=== PATIENT | female | born 1945 | race Asian ===

== ENCOUNTER 2020-05-27 19:51 | Inpatient (IN) | payer OTHER ==
[2020-05-27] MEDS ORDERED: DEXAMETHASONE SOD PHOSPHATE 20 MG/5 ML VIAL IVPB STA (21:37)
[2020-05-27 21:38] LABS: VENOUS PCO2 41.7 mmHg (38-52); VENOUS PH 7.334 (7.310-7.410)
[2020-05-27 21:40] LABS: BASO % 0.2 % (0-2.0); HEMATOCRIT 35.4 % (32.4-45.2); HEMOGLOBIN 11.8 GM/dL (10.7-15.3); LYMPH % 13.5 % (8-40); MCH 26.6 pg (25.7-33.7); MCHC 33.5 g/dl (32.0-36.0); MEAN CELL VOLUME 79.4 fl (80-96); MEAN PLT VOLUME 9.2 fl (7.5-11.1); MONO % 3.5 % (3.8-10.2); NEUT % 82.8 % (42.8-82.8); PLATELET COUNT 115 K/MM3 (134-434); RBC 4.46 M/mm3 (3.60-5.2); RDW 13.6 % (11.6-15.6); WHITE BLOOD COUNT 8.6 K/mm3 (4.0-10.0)
[2020-05-27] MEDS ORDERED: DEXAMETHASONE SOD PHOSPHATE 10 MG/1 ML VIAL ONE (21:41)
[2020-05-27 22:01] LABS: CHLORIDE 94 mmol/L (98-107); POTASSIUM 3.4 mmol/L (3.5-5.1); SODIUM 127 mmol/L (136-145)
[2020-05-27 22:04] LABS: CALCIUM 7.7 mg/dL (8.5-10.1)
[2020-05-27 22:05] LABS: ALBUMIN 3.1 g/dl (3.4-5.0); ANION GAP 11 MMOL/L (8-16); BLOOD UREA NITROGEN 14.4 mg/dL (7-18); CO2 22 mmol/L (21-32); GLUCOSE,RANDOM 138 mg/dL (74-106)
[2020-05-27 22:07] LABS: CREATININE 0.8 mg/dL (0.55-1.3)
[2020-05-27 22:08] LABS: SGOT/AST 79 U/L (15-37); SGPT/ALT 85 U/L (13-61)
[2020-05-27 22:09] LABS: BILIRUBIN,TOTAL 0.5 mg/dL (0.2-1); LDH 544 U/L (84-246); TOT PROT 7.2 g/dl (6.4-8.2)
[2020-05-27 22:10] LABS: ALK PHOS 85 U/L (45-117)
[2020-05-27] MEDS ORDERED: SODIUM CHLORIDE 1,000 ML IV SCH (23:45)
[2020-05-27] MEDS ORDERED: KCL 10 MEQ IVPB 10 MEQ/100 ML INFUS.BAG IVPB ONE (23:48)
[2020-05-27] MEDS ORDERED: ASCORBIC ACID 500 MG TABLET (FP) ONE (23:48)
[2020-05-27] MEDS: ASCORBIC ACID 500 MG TABLET (FP) PO SCH (23:59)
[2020-05-28] MEDS: KCL 10 MEQ IVPB 10 MEQ/100 ML INFUS.BAG IVPB SCH ×2 (00:17→02:38)
[2020-05-28] MEDS ORDERED: AZITHROMYCIN IVPB 500 MG/250 ML BAG IVPB ONE ×2 (00:45→02:09)
[2020-05-28] MEDS ORDERED: ENOXAPARIN NA (PORCINE) 40 MG/0.4 ML DISP.SYRIN SQ ONE (01:18)
[2020-05-28] MEDS ORDERED: cefTRIAXone SODIUM 1 GM VIAL ONE ×2 (02:08→09:10)
[2020-05-28] MEDS ORDERED: KCL 10 MEQ IVPB 10 MEQ/100 ML INFUS.BAG IVPB ONE (02:09)
[2020-05-28] MEDS ORDERED: FAMOTIDINE 20 MG/50 ML IVPB 20 MG/50 ML MG IVPB ONE (02:09)
[2020-05-28] MEDS: FAMOTIDINE 20 MG/50 ML IVPB 20 MG/50 ML MG IVPB SCH ×3 (02:37→21:44)
[2020-05-28] MEDS ORDERED: LORazepam 2 MG/ML SDV VIAL IVPUSH ONE (04:35)
[2020-05-28 05:54] LABS: ARTERIAL BLD GAS O2 SATURATION 76.1 mmHg (95-98); ARTERIAL BLOOD GAS BASE EXCESS -7.6 mmol/L (-2-2); ARTERIAL BLOOD GAS PO2 47.6 mmHg (80-100); ARTERIAL BLOOD GAS pH 7.239 (7.350-7.450)
[2020-05-28 05:55] LABS: ALLENS TEST POSITIVE
[2020-05-28 05:56] LABS: VENT MODE S/T; VENT RATE 30
[2020-05-28] MEDS ORDERED: RAPID SEQUENCE INTUBATION KIT NR ONE (06:01)
[2020-05-28] MEDS ORDERED: PROPOFOL 1,000,000 MCG/100 ML VIAL ONE (06:20)
[2020-05-28] MEDS: PROPOFOL 1,000,000 MCG/100 ML VIAL IVPB SCH ×2 (06:40→13:00)
[2020-05-28 07:21] LABS: RDW 13.1 % (11.6-15.6)
[2020-05-28] MEDS ORDERED: FENTANYL NS IVPB 500 MCG/100 ML BAG IVPB ONE (07:26)
[2020-05-28 07:28] LABS: INR 0.93 (0.83-1.09); PROTHROMBIN TIME (PATIENT) 11.5 SEC (9.7-13.0)
[2020-05-28 07:29] LABS: ACTIVATED PTT 29.2 SECONDS (25.2-36.5)
[2020-05-28] MEDS ORDERED: FENTANYL IVPB 500 MCG/100 ML BAG IVPB SCH (07:30)
[2020-05-28 07:42] LABS: POTASSIUM 3.1 mmol/L (3.5-5.1)
[2020-05-28 07:46] LABS: BLOOD UREA NITROGEN 9.1 mg/dL (7-18); MAGNESIUM 1.6 mg/dL (1.8-2.4)
[2020-05-28 07:49] LABS: CREATININE 0.5 mg/dL (0.55-1.3); PHOSPHOROUS 2.1 mg/dL (2.5-4.9)
[2020-05-28 07:51] LABS: BILIRUBIN,TOTAL 0.6 mg/dL (0.2-1)
[2020-05-28] MEDS: MIDAZOLAM 100 MG/100 ML MG IVPB SCH (08:00)
[2020-05-28 08:26] LABS: BASO % 0.2 % (0-2.0); HEMATOCRIT 25.3 % (32.4-45.2); LYMPH % 10.3 % (8-40); MCH 28.2 pg (25.7-33.7); MCHC 35.6 g/dl (32.0-36.0); MEAN CELL VOLUME 79.2 fl (80-96); MEAN PLT VOLUME 9.7 fl (7.5-11.1); MONO % 2.7 % (3.8-10.2); NEUT % 86.8 % (42.8-82.8); PLATELET COUNT 96 K/MM3 (134-434); WHITE BLOOD COUNT 6.5 K/mm3 (4.0-10.0)
[2020-05-28 08:27] LABS: ALBUMIN 2.2 g/dl (3.4-5.0); TOT PROT 5.5 g/dl (6.4-8.2)
[2020-05-28 08:31] LABS: CALCIUM 5.6 mg/dL (8.5-10.1)
[2020-05-28] MEDS ORDERED: MIDAZOLAM 100 MG/100 ML MG IVPB ONE (08:45)
[2020-05-28] MEDS ORDERED: DEXTROSE 5%-WATER - 50 ML IVPB ONE (09:11)
[2020-05-28 09:21] LABS: ARTERIAL BLD GAS O2 SATURATION 93.2 mmHg (95-98); ARTERIAL BLOOD GAS BASE EXCESS -7.6 mmol/L (-2-2); ARTERIAL BLOOD GAS PO2 79.2 mmHg (80-100); ARTERIAL BLOOD GAS pH 7.221 (7.350-7.450)
[2020-05-28 09:23] LABS: ALLENS TEST POSITIVE; VENT MODE A/C; VENT RATE 18
[2020-05-28] MEDS ORDERED: VECURONIUM BROMIDE 50 MG/50 ML VIAL IVPUSH ONE (09:36)
[2020-05-28] MEDS ORDERED: VECURONIUM BROMIDE 10 MG/10 ML VIAL ONE (09:39)
[2020-05-28] MEDS: VECURONIUM BROMIDE 100 MG/100 ML BAG IVPB SCH (09:52)
[2020-05-28] MEDS: DEXAMETHASONE SOD PHOSPHATE 10 MG/1 ML VIAL IVPUSH SCH (10:05)
[2020-05-28] MEDS: ENOXAPARIN NA (PORCINE) 80 MG/0.8 ML DISP.SYRIN SQ SCH ×2 (10:05→21:41)
[2020-05-28] MEDS: MUPIROCIN 2% TOPICAL OINTMENT FOR DECOLONIZATION NS SCH ×2 (10:06→21:43)
[2020-05-28] MEDS: VASOPRESSIN 40 UNITS in SODIUM CHLORIDE 98 ML IVPB SCH ×2 (10:29→17:18)
[2020-05-28] MEDS: ZINC SULFATE 220 MG CAPSULE (FP) PO SCH ×2 (10:29→22:23)
[2020-05-28] MEDS: CEFTRIAXONE 1 GM in DEXTROSE 5%-WATER - 50 ML IVPB SCH (10:30)
[2020-05-28] MEDS: CHOLECALCIFEROL (VIT D3) 1,000 UNIT (25 MCG) TABLET PO SCH (10:30)
[2020-05-28] MEDS: ASCORBIC ACID 500 MG TABLET (FP) PO SCH ×2 (10:30→22:24)
[2020-05-28] MEDS: AZITHROMYCIN IVPB 500 MG/250 ML BAG IVPB SCH (11:17)
[2020-05-28] MEDS ORDERED: MAGNESIUM SULF 50% (8.12 MEQ/2 ML-1 GM VIAL) IVPB ONE (13:00)
[2020-05-28] MEDS ORDERED: POTASSIUM PHOSPHATE 30 MM in SODIUM CHLORIDE 500 ML IVPB ONE (14:00)
[2020-05-28] MEDS ORDERED: PT OWN MED DRAWER 7, Y5N ONE ×2 (14:39→15:31)
[2020-05-28] MEDS ORDERED: REMDESIVIR 200 MG in SODIUM CHLORIDE 210 ML IVPB ONE (15:00)
[2020-05-28] MEDS: NOREPINEPHRINE NS PREMIX 16,000 MCG/500 ML BAG IVPB SCH (15:54)
[2020-05-28 16:19] LABS: ARTERIAL BLOOD GAS PO2 112.9 mmHg (80-100)
[2020-05-28 16:31] LABS: ALLENS TEST POSITIVE
[2020-05-28 16:32] LABS: VENT MODE AC; VENT RATE 18
[2020-05-28 16:35] LABS: ARTERIAL BLOOD GAS pH 7.005 (7.350-7.450)
[2020-05-28 18:18] LABS: POTASSIUM 4.5 mmol/L (3.5-5.1)
[2020-05-28 18:20] LABS: BLOOD UREA NITROGEN 14.6 mg/dL (7-18)
[2020-05-28 18:23] LABS: CREATININE 0.9 mg/dL (0.55-1.3)
[2020-05-28 18:33] LABS: CALCIUM 6.8 mg/dL (8.5-10.1)
[2020-05-28] MEDS ORDERED: SODIUM BICARBONATE 8.4% 50 MEQ/50 ML DISP.SYRIN IVPUSH ONE ×2 (18:42→21:10)
[2020-05-28] MEDS ORDERED: SODIUM BICARBONATE 8.4% 50 MEQ/50 ML VIAL ONE (18:45)
[2020-05-28 19:56] LABS: ARTERIAL BLD GAS O2 SATURATION 99.4 mmHg (95-98); ARTERIAL BLOOD GAS BASE EXCESS -7.6 mmol/L (-2-2); ARTERIAL BLOOD GAS PO2 253.2 mmHg (80-100)
[2020-05-28 20:36] LABS: ARTERIAL BLOOD GAS pH 7.165 (7.350-7.450)
[2020-05-28] MEDS ORDERED: SODIUM BICARBONATE 8.4% - 150 MEQ in DEXTROSE 5%-WATER - 950 ML IVPB SCH (21:00)
[2020-05-28] MEDS ORDERED: CALCIUM GLUCONATE 10% - 1,000 MG/10 ML VIAL IVPUSH ONE (21:11)
[2020-05-28] MEDS ORDERED: SODIUM CHLORIDE 0.45% 1,000 ML IV SCH (21:15)
[2020-05-28] MEDS: INSULIN SLIDING SCALE (NOVOLOG) 1 VIAL SQ SCH (21:38)
[2020-05-28] MEDS: CHLORHEXIDINE GLUCONATE 4% CLEANSER FOR DECOLONIZATION TP SCH (21:44)
[2020-05-29] MEDS ORDERED: SODIUM CHLORIDE 0.45% 1,000 ML with SODIUM BICARBONATE 8.4% - 75 MEQ IV SCH (00:11)
[2020-05-29 01:27] LABS: POTASSIUM 4.8 mmol/L (3.5-5.1)
[2020-05-29 01:29] LABS: CALCIUM 7.2 mg/dL (8.5-10.1)
[2020-05-29 01:30] LABS: ARTERIAL BLD GAS O2 SATURATION 94.2 mmHg (95-98); ARTERIAL BLOOD GAS BASE EXCESS -4.2 mmol/L (-2-2); ARTERIAL BLOOD GAS PO2 78.3 mmHg (80-100); ARTERIAL BLOOD GAS pH 7.293 (7.350-7.450)
[2020-05-29 01:30] LABS: ALBUMIN 2.4 g/dl (3.4-5.0); BLOOD UREA NITROGEN 15.6 mg/dL (7-18)
[2020-05-29 01:33] LABS: CREATININE 0.8 mg/dL (0.55-1.3)
[2020-05-29 01:35] LABS: TOT PROT 5.9 g/dl (6.4-8.2)
[2020-05-29 01:37] LABS: ALLENS TEST NEGATIVE
[2020-05-29 01:38] LABS: VENT MODE A/C
[2020-05-29 01:39] LABS: VENT RATE 18
[2020-05-29 01:56] LABS: BILIRUBIN,TOTAL 0.3 mg/dL (0.2-1)
[2020-05-29] MEDS: PROPOFOL 1,000,000 MCG/100 ML VIAL IVPB SCH ×2 (03:02→06:18)
[2020-05-29] MEDS: MIDAZOLAM 100 MG/100 ML MG IVPB SCH ×2 (03:03→09:43)
[2020-05-29] MEDS: INSULIN SLIDING SCALE (NOVOLOG) 1 VIAL SQ SCH ×3 (05:36→23:26)
[2020-05-29 06:26] LABS: ARTERIAL BLD GAS O2 SATURATION 97.1 mmHg (95-98); ARTERIAL BLOOD GAS pH 7.327 (7.350-7.450)
[2020-05-29 06:27] LABS: ALLENS TEST POSITIVE
[2020-05-29 06:28] LABS: VENT MODE A/C; VENT RATE 18
[2020-05-29 07:58] LABS: BASO % 0.1 % (0-2.0); HEMOGLOBIN 12.4 GM/dL (10.7-15.3); LYMPH % 11.6 % (8-40); MCH 26.7 pg (25.7-33.7); MCHC 34.4 g/dl (32.0-36.0); MEAN CELL VOLUME 77.7 fl (80-96); MEAN PLT VOLUME 9.5 fl (7.5-11.1); MONO % 5.5 % (3.8-10.2); NEUT % 82.8 % (42.8-82.8); PLATELET COUNT 168 K/MM3 (134-434); RBC 4.63 M/mm3 (3.60-5.2); RDW 13.3 % (11.6-15.6)
[2020-05-29 08:11] LABS: POTASSIUM 3.7 mmol/L (3.5-5.1)
[2020-05-29 08:23] LABS: ALBUMIN 2.4 g/dl (3.4-5.0); MAGNESIUM 2.7 mg/dL (1.8-2.4)
[2020-05-29 08:25] LABS: CREATININE 0.7 mg/dL (0.55-1.3)
[2020-05-29 08:26] LABS: PHOSPHOROUS 3.2 mg/dL (2.5-4.9)
[2020-05-29 08:27] LABS: TOT PROT 6.2 g/dl (6.4-8.2)
[2020-05-29 08:33] LABS: BILIRUBIN,TOTAL 0.5 mg/dL (0.2-1)
[2020-05-29] MEDS ORDERED: DEXTROSE 5%-WATER - 50 ML IVPB ONE (08:47)
[2020-05-29] MEDS ORDERED: cefTRIAXone SODIUM 1 GM VIAL ONE (08:47)
[2020-05-29] MEDS: DEXAMETHASONE SOD PHOSPHATE 10 MG/1 ML VIAL IVPUSH SCH (09:12)
[2020-05-29] MEDS: MUPIROCIN 2% TOPICAL OINTMENT FOR DECOLONIZATION NS SCH ×2 (09:12→22:27)
[2020-05-29] MEDS: ZINC SULFATE 220 MG CAPSULE (FP) PO SCH ×2 (09:12→22:27)
[2020-05-29] MEDS: FAMOTIDINE 20 MG/50 ML IVPB 20 MG/50 ML MG IVPB SCH ×2 (09:12→22:27)
[2020-05-29] MEDS: ENOXAPARIN NA (PORCINE) 80 MG/0.8 ML DISP.SYRIN SQ SCH ×2 (09:12→22:27)
[2020-05-29] MEDS: ASCORBIC ACID 500 MG TABLET (FP) PO SCH ×2 (09:13→22:28)
[2020-05-29] MEDS: CEFTRIAXONE 1 GM in DEXTROSE 5%-WATER - 50 ML IVPB SCH (09:13)
[2020-05-29] MEDS: CHOLECALCIFEROL (VIT D3) 1,000 UNIT (25 MCG) TABLET PO SCH (09:13)
[2020-05-29] MEDS: VECURONIUM BROMIDE 100 MG/100 ML BAG IVPB SCH (09:43)
[2020-05-29] MEDS: AZITHROMYCIN IVPB 500 MG/250 ML BAG IVPB SCH (09:43)
[2020-05-29] MEDS: VASOPRESSIN 40 UNITS in SODIUM CHLORIDE 98 ML IVPB SCH (09:43)
[2020-05-29] MEDS: SODIUM CHLORIDE 1,000 ML IV SCH (14:00)
[2020-05-29] MEDS: REMDESIVIR 100 MG in SODIUM CHLORIDE 230 ML IVPB SCH (14:49)
[2020-05-29] MEDS: NOREPINEPHRINE NS PREMIX 16,000 MCG/500 ML BAG IVPB SCH (18:13)
[2020-05-29] MEDS: CHLORHEXIDINE GLUCONATE 4% CLEANSER FOR DECOLONIZATION TP SCH (22:27)
[2020-05-30] MEDS: MIDAZOLAM 100 MG/100 ML MG IVPB SCH ×2 (02:52→15:20)
[2020-05-30] MEDS: INSULIN SLIDING SCALE (NOVOLOG) 1 VIAL SQ SCH ×3 (06:35→22:51)
[2020-05-30] MEDS: PROPOFOL 1,000,000 MCG/100 ML VIAL IVPB SCH ×3 (06:35→15:20)
[2020-05-30 07:29] LABS: HEMATOCRIT 38.6 % (32.4-45.2); HEMOGLOBIN 12.8 GM/dL (10.7-15.3); MCH 26.3 pg (25.7-33.7); MCHC 33.3 g/dl (32.0-36.0); MEAN CELL VOLUME 79.1 fl (80-96); MEAN PLT VOLUME 9.2 fl (7.5-11.1); PLATELET COUNT 204 K/MM3 (134-434); RBC 4.88 M/mm3 (3.60-5.2); RDW 13.8 % (11.6-15.6); WHITE BLOOD COUNT 16.6 K/mm3 (4.0-10.0)
[2020-05-30 08:00] LABS: POTASSIUM 3.4 mmol/L (3.5-5.1)
[2020-05-30 08:08] LABS: ALBUMIN 2.3 g/dl (3.4-5.0)
[2020-05-30 08:10] LABS: BILIRUBIN,TOTAL 0.2 mg/dL (0.2-1); TOT PROT 6.3 g/dl (6.4-8.2)
[2020-05-30 08:11] LABS: CALCIUM 7.1 mg/dL (8.5-10.1); CREATININE 0.5 mg/dL (0.55-1.3)
[2020-05-30 08:12] LABS: MAGNESIUM 2.8 mg/dL (1.8-2.4); PHOSPHOROUS 2.2 mg/dL (2.5-4.9)
[2020-05-30] MEDS ORDERED: cefTRIAXone SODIUM 1 GM VIAL ONE (09:14)
[2020-05-30] MEDS ORDERED: DEXTROSE 5%-WATER - 50 ML IVPB ONE (09:14)
[2020-05-30] MEDS: ENOXAPARIN NA (PORCINE) 80 MG/0.8 ML DISP.SYRIN SQ SCH ×2 (09:18→22:27)
[2020-05-30] MEDS: DEXAMETHASONE SOD PHOSPHATE 10 MG/1 ML VIAL IVPUSH SCH (09:18)
[2020-05-30] MEDS: MUPIROCIN 2% TOPICAL OINTMENT FOR DECOLONIZATION NS SCH ×2 (09:18→22:27)
[2020-05-30] MEDS: ASCORBIC ACID 500 MG TABLET (FP) PO SCH ×2 (09:19→22:28)
[2020-05-30] MEDS: FAMOTIDINE 20 MG/50 ML IVPB 20 MG/50 ML MG IVPB SCH ×2 (09:19→22:28)
[2020-05-30] MEDS: CHOLECALCIFEROL (VIT D3) 1,000 UNIT (25 MCG) TABLET PO SCH (09:19)
[2020-05-30] MEDS: CEFTRIAXONE 1 GM in DEXTROSE 5%-WATER - 50 ML IVPB SCH (09:19)
[2020-05-30] MEDS: ZINC SULFATE 220 MG CAPSULE (FP) PO SCH ×2 (09:19→22:28)
[2020-05-30] MEDS: AZITHROMYCIN IVPB 500 MG/250 ML BAG IVPB SCH (11:30)
[2020-05-30] MEDS: VECURONIUM BROMIDE 100 MG/100 ML BAG IVPB SCH (12:00)
[2020-05-30] MEDS: VASOPRESSIN 40 UNITS in SODIUM CHLORIDE 98 ML IVPB SCH (13:53)
[2020-05-30] MEDS: SODIUM CHLORIDE 1,000 ML IV SCH (14:29)
[2020-05-30] MEDS: REMDESIVIR 100 MG in SODIUM CHLORIDE 230 ML IVPB SCH (14:37)
[2020-05-30] MEDS: KCL 10 MEQ IVPB 10 MEQ/100 ML INFUS.BAG IVPB SCH ×2 (16:29→17:34)
[2020-05-30] MEDS: NOREPINEPHRINE NS PREMIX 16,000 MCG/500 ML BAG IVPB SCH (17:01)
[2020-05-30] MEDS: CHLORHEXIDINE GLUCONATE 4% CLEANSER FOR DECOLONIZATION TP SCH (22:27)
[2020-05-31] MEDS: INSULIN SLIDING SCALE (NOVOLOG) 1 VIAL SQ SCH ×3 (06:01→22:30)
[2020-05-31 07:31] LABS: BASO % 0.1 % (0-2.0); HEMATOCRIT 36.6 % (32.4-45.2); LYMPH % 3.9 % (8-40); MCH 26.3 pg (25.7-33.7); MCHC 32.7 g/dl (32.0-36.0); MEAN CELL VOLUME 80.2 fl (80-96); MEAN PLT VOLUME 8.7 fl (7.5-11.1); MONO % 3.7 % (3.8-10.2); NEUT % 92.3 % (42.8-82.8); PLATELET COUNT 220 K/MM3 (134-434); RBC 4.56 M/mm3 (3.60-5.2); RDW 13.9 % (11.6-15.6); WHITE BLOOD COUNT 17.9 K/mm3 (4.0-10.0)
[2020-05-31 07:46] LABS: POTASSIUM 3.9 mmol/L (3.5-5.1)
[2020-05-31 08:00] LABS: BILIRUBIN,TOTAL 0.2 mg/dL (0.2-1); BLOOD UREA NITROGEN 16.2 mg/dL (7-18); CREATININE 0.6 mg/dL (0.55-1.3); TOT PROT 5.3 g/dl (6.4-8.2)
[2020-05-31] MEDS ORDERED: cefTRIAXone SODIUM 1 GM VIAL ONE (09:30)
[2020-05-31] MEDS ORDERED: DEXTROSE 5%-WATER - 50 ML IVPB ONE (09:30)
[2020-05-31] MEDS: CEFTRIAXONE 1 GM in DEXTROSE 5%-WATER - 50 ML IVPB SCH (10:09)
[2020-05-31] MEDS: AZITHROMYCIN IVPB 500 MG/250 ML BAG IVPB SCH (10:10)
[2020-05-31] MEDS: DEXAMETHASONE SOD PHOSPHATE 10 MG/1 ML VIAL IVPUSH SCH (10:15)
[2020-05-31] MEDS: FAMOTIDINE 20 MG/50 ML IVPB 20 MG/50 ML MG IVPB SCH ×2 (10:20→22:21)
[2020-05-31] MEDS: CHOLECALCIFEROL (VIT D3) 1,000 UNIT (25 MCG) TABLET PO SCH (10:20)
[2020-05-31] MEDS: ENOXAPARIN NA (PORCINE) 80 MG/0.8 ML DISP.SYRIN SQ SCH ×2 (10:20→22:19)
[2020-05-31] MEDS: ZINC SULFATE 220 MG CAPSULE (FP) PO SCH ×2 (10:21→22:21)
[2020-05-31] MEDS: ASCORBIC ACID 500 MG TABLET (FP) PO SCH ×2 (10:21→22:20)
[2020-05-31] MEDS: MUPIROCIN 2% TOPICAL OINTMENT FOR DECOLONIZATION NS SCH ×2 (12:39→22:18)
[2020-05-31] MEDS: VASOPRESSIN 40 UNITS in SODIUM CHLORIDE 98 ML IVPB SCH (12:40)
[2020-05-31] MEDS: MIDAZOLAM 100 MG/100 ML MG IVPB SCH (13:37)
[2020-05-31 13:46] LABS: ANISOCYTOSIS 0; MACROCYTOSIS 0; PLATELET ESTIMATE NORMAL
[2020-05-31] MEDS: PROPOFOL 1,000,000 MCG/100 ML VIAL IVPB SCH (14:19)
[2020-05-31] MEDS: REMDESIVIR 100 MG in SODIUM CHLORIDE 230 ML IVPB SCH (16:16)
[2020-05-31] MEDS: NOREPINEPHRINE NS PREMIX 16,000 MCG/500 ML BAG IVPB SCH (16:18)
[2020-05-31] MEDS: VECURONIUM BROMIDE 100 MG/100 ML BAG IVPB SCH (16:51)
[2020-05-31] MEDS ORDERED: PT OWN MED DRAWER 7, Y5N ONE (17:47)
[2020-05-31] MEDS: CHLORHEXIDINE GLUCONATE 4% CLEANSER FOR DECOLONIZATION TP SCH (22:18)
[2020-06-01] MEDS: PROPOFOL 1,000,000 MCG/100 ML VIAL IVPB SCH ×4 (01:30→22:48)
[2020-06-01] MEDS: INSULIN SLIDING SCALE (NOVOLOG) 1 VIAL SQ SCH ×3 (06:35→21:37)
[2020-06-01 07:32] LABS: HEMATOCRIT 35.1 % (32.4-45.2); HEMOGLOBIN 11.6 GM/dL (10.7-15.3); MCH 26.3 pg (25.7-33.7); MCHC 32.9 g/dl (32.0-36.0); MEAN CELL VOLUME 79.9 fl (80-96); MEAN PLT VOLUME 8.8 fl (7.5-11.1); PLATELET COUNT 210 K/MM3 (134-434); RBC 4.39 M/mm3 (3.60-5.2); RDW 14.1 % (11.6-15.6); WHITE BLOOD COUNT 14.1 K/mm3 (4.0-10.0)
[2020-06-01 07:54] LABS: POTASSIUM 3.8 mmol/L (3.5-5.1)
[2020-06-01 07:56] LABS: CALCIUM 7.5 mg/dL (8.5-10.1)
[2020-06-01 07:57] LABS: BLOOD UREA NITROGEN 18.6 mg/dL (7-18); MAGNESIUM 2.2 mg/dL (1.8-2.4)
[2020-06-01 07:59] LABS: CREATININE 0.6 mg/dL (0.55-1.3)
[2020-06-01 08:14] LABS: PHOSPHOROUS 0.7 mg/dL (2.5-4.9)
[2020-06-01] MEDS ORDERED: cefTRIAXone SODIUM 1 GM VIAL ONE (08:51)
[2020-06-01] MEDS ORDERED: DEXTROSE 5%-WATER - 50 ML IVPB ONE (08:51)
[2020-06-01] MEDS: FAMOTIDINE 20 MG/50 ML IVPB 20 MG/50 ML MG IVPB SCH ×2 (09:39→21:30)
[2020-06-01] MEDS: CEFTRIAXONE 1 GM in DEXTROSE 5%-WATER - 50 ML IVPB SCH (09:39)
[2020-06-01] MEDS: AZITHROMYCIN IVPB 500 MG/250 ML BAG IVPB SCH (09:42)
[2020-06-01] MEDS: VECURONIUM BROMIDE 100 MG/100 ML BAG IVPB SCH (09:43)
[2020-06-01] MEDS: DEXAMETHASONE SOD PHOSPHATE 10 MG/1 ML VIAL IVPUSH SCH (09:44)
[2020-06-01] MEDS: MIDAZOLAM 100 MG/100 ML MG IVPB SCH ×2 (09:44→22:48)
[2020-06-01] MEDS: MUPIROCIN 2% TOPICAL OINTMENT FOR DECOLONIZATION NS SCH ×2 (09:44→21:29)
[2020-06-01] MEDS: ENOXAPARIN NA (PORCINE) 80 MG/0.8 ML DISP.SYRIN SQ SCH ×2 (09:46→21:30)
[2020-06-01] MEDS: VASOPRESSIN 40 UNITS in SODIUM CHLORIDE 98 ML IVPB SCH (09:47)
[2020-06-01] MEDS: ASCORBIC ACID 500 MG TABLET (FP) PO SCH ×2 (09:47→21:30)
[2020-06-01] MEDS: ZINC SULFATE 220 MG CAPSULE (FP) PO SCH ×2 (09:47→21:30)
[2020-06-01] MEDS: CHOLECALCIFEROL (VIT D3) 1,000 UNIT (25 MCG) TABLET PO SCH (09:47)
[2020-06-01] MEDS ORDERED: NAPH,MB-DB/K PH,MBDB POWDER PACKET PO ONE ×2 (10:35→22:00)
[2020-06-01] MEDS ORDERED: PT OWN MED DRAWER 7, Y5N ONE ×2 (11:49→12:41)
[2020-06-01] MEDS ORDERED: POTASSIUM PHOSPHATE 30 MM in SODIUM CHLORIDE 250 ML IVPB ONE (12:00)
[2020-06-01] MEDS: REMDESIVIR 100 MG in SODIUM CHLORIDE 230 ML IVPB SCH (15:42)
[2020-06-01] MEDS: NOREPINEPHRINE NS PREMIX 16,000 MCG/500 ML BAG IVPB SCH (16:30)
[2020-06-01] MEDS: CHLORHEXIDINE GLUCONATE 4% CLEANSER FOR DECOLONIZATION TP SCH (21:29)
[2020-06-02] MEDS: INSULIN SLIDING SCALE (NOVOLOG) 1 VIAL SQ SCH ×3 (05:23→21:10)
[2020-06-02 07:33] LABS: POTASSIUM 4.7 mmol/L (3.5-5.1)
[2020-06-02 07:39] LABS: CALCIUM 7.7 mg/dL (8.5-10.1)
[2020-06-02 07:40] LABS: ALBUMIN 1.7 g/dl (3.4-5.0); BLOOD UREA NITROGEN 24.8 mg/dL (7-18)
[2020-06-02 07:43] LABS: CREATININE 0.5 mg/dL (0.55-1.3); PHOSPHOROUS 2.5 mg/dL (2.5-4.9)
[2020-06-02 07:44] LABS: BILIRUBIN,TOTAL 0.3 mg/dL (0.2-1)
[2020-06-02 07:45] LABS: TOT PROT 4.4 g/dl (6.4-8.2)
[2020-06-02] MEDS ORDERED: cefTRIAXone SODIUM 1 GM VIAL ONE (08:28)
[2020-06-02] MEDS ORDERED: DEXTROSE 5%-WATER - 50 ML IVPB ONE (08:28)
[2020-06-02] MEDS: PROPOFOL 1,000,000 MCG/100 ML VIAL IVPB SCH ×3 (08:57→21:12)
[2020-06-02] MEDS: DEXAMETHASONE SOD PHOSPHATE 10 MG/1 ML VIAL IVPUSH SCH (09:22)
[2020-06-02] MEDS: CHOLECALCIFEROL (VIT D3) 1,000 UNIT (25 MCG) TABLET PO SCH (09:23)
[2020-06-02] MEDS: CEFTRIAXONE 1 GM in DEXTROSE 5%-WATER - 50 ML IVPB SCH (09:23)
[2020-06-02] MEDS: NAPH,MB-DB/K PH,MBDB POWDER PACKET PO SCH ×2 (09:23→21:12)
[2020-06-02] MEDS: ASCORBIC ACID 500 MG TABLET (FP) PO SCH ×2 (09:23→21:11)
[2020-06-02] MEDS: VECURONIUM BROMIDE 100 MG/100 ML BAG IVPB SCH ×2 (09:23→10:18)
[2020-06-02] MEDS: FAMOTIDINE 20 MG/50 ML IVPB 20 MG/50 ML MG IVPB SCH ×2 (09:23→21:12)
[2020-06-02] MEDS: ENOXAPARIN NA (PORCINE) 80 MG/0.8 ML DISP.SYRIN SQ SCH ×2 (09:23→21:11)
[2020-06-02] MEDS: ZINC SULFATE 220 MG CAPSULE (FP) PO SCH ×2 (09:23→21:11)
[2020-06-02] MEDS: VASOPRESSIN 40 UNITS in SODIUM CHLORIDE 98 ML IVPB SCH (09:23)
[2020-06-02] MEDS: MIDAZOLAM 100 MG/100 ML MG IVPB SCH ×2 (09:24→16:22)
[2020-06-02] MEDS ORDERED: MIDAZOLAM HCL 5 MG/1 ML Single Dose Vial IVPUSH ONE (09:26)
[2020-06-02] MEDS: AZITHROMYCIN IVPB 500 MG/250 ML BAG IVPB SCH (10:18)
[2020-06-02] MEDS ORDERED: PT OWN MED DRAWER 7, Y5N ONE (14:40)
[2020-06-02] MEDS: REMDESIVIR 100 MG in SODIUM CHLORIDE 230 ML IVPB SCH (14:43)
[2020-06-02] MEDS: NOREPINEPHRINE NS PREMIX 16,000 MCG/500 ML BAG IVPB SCH (16:01)
[2020-06-02] MEDS: CHLORHEXIDINE GLUCONATE 4% CLEANSER FOR DECOLONIZATION TP SCH (21:11)
[2020-06-03] MEDS: PROPOFOL 1,000,000 MCG/100 ML VIAL IVPB SCH (06:16)
[2020-06-03] MEDS: INSULIN SLIDING SCALE (NOVOLOG) 1 VIAL SQ SCH ×3 (06:17→21:46)
[2020-06-03] MEDS: MIDAZOLAM 100 MG/100 ML MG IVPB SCH ×2 (06:17→10:12)
[2020-06-03 06:54] LABS: BASO % 0.1 % (0-2.0); EOS % 0.1 % (0-4.5); HEMATOCRIT 32.5 % (32.4-45.2); HEMOGLOBIN 10.9 GM/dL (10.7-15.3); LYMPH % 13.6 % (8-40); MCH 26.7 pg (25.7-33.7); MCHC 33.5 g/dl (32.0-36.0); MEAN CELL VOLUME 79.7 fl (80-96); MEAN PLT VOLUME 8.6 fl (7.5-11.1); MONO % 6.3 % (3.8-10.2); NEUT % 79.9 % (42.8-82.8); PLATELET COUNT 190 K/MM3 (134-434); RBC 4.08 M/mm3 (3.60-5.2); RDW 14.2 % (11.6-15.6); WHITE BLOOD COUNT 10.9 K/mm3 (4.0-10.0)
[2020-06-03 07:12] LABS: POTASSIUM 4.7 mmol/L (3.5-5.1)
[2020-06-03 07:16] LABS: ALBUMIN 1.9 g/dl (3.4-5.0)
[2020-06-03 07:18] LABS: MAGNESIUM 2.1 mg/dL (1.8-2.4)
[2020-06-03 07:19] LABS: CREATININE 0.5 mg/dL (0.55-1.3); PHOSPHOROUS 3.1 mg/dL (2.5-4.9)
[2020-06-03 07:20] LABS: BILIRUBIN,TOTAL 0.3 mg/dL (0.2-1); TOT PROT 4.9 g/dl (6.4-8.2)
[2020-06-03] MEDS: DEXAMETHASONE SOD PHOSPHATE 10 MG/1 ML VIAL IVPUSH SCH (10:09)
[2020-06-03] MEDS: ASCORBIC ACID 500 MG TABLET (FP) PO SCH ×2 (10:09→21:28)
[2020-06-03] MEDS: CHOLECALCIFEROL (VIT D3) 1,000 UNIT (25 MCG) TABLET PO SCH (10:09)
[2020-06-03] MEDS: ZINC SULFATE 220 MG CAPSULE (FP) PO SCH ×2 (10:09→21:28)
[2020-06-03] MEDS: FAMOTIDINE 20 MG/50 ML IVPB 20 MG/50 ML MG IVPB SCH ×2 (10:11→21:47)
[2020-06-03] MEDS: ENOXAPARIN NA (PORCINE) 80 MG/0.8 ML DISP.SYRIN SQ SCH ×2 (10:11→21:28)
[2020-06-03] MEDS: VASOPRESSIN 40 UNITS in SODIUM CHLORIDE 98 ML IVPB SCH (10:11)
[2020-06-03] MEDS: VECURONIUM BROMIDE 100 MG/100 ML BAG IVPB SCH (10:12)
[2020-06-03] MEDS ORDERED: FENTANYL NS IVPB 500 MCG/100 ML BAG IVPB ONE (10:13)
[2020-06-03] MEDS: FENTANYL NS IVPB 500 MCG/100 ML BAG IVPB SCH (11:00)
[2020-06-03 11:16] LABS: ANISOCYTOSIS 0; MACROCYTOSIS 0; PLATELET ESTIMATE NORMAL
[2020-06-03] MEDS: REMDESIVIR 100 MG in SODIUM CHLORIDE 230 ML IVPB SCH (14:39)
[2020-06-03] MEDS: CHLORHEXIDINE GLUCONATE 4% CLEANSER FOR DECOLONIZATION TP SCH (21:28)
[2020-06-04 07:02] LABS: HEMOGLOBIN 10.4 GM/dL (10.7-15.3); MCH 26.3 pg (25.7-33.7); MCHC 32.6 g/dl (32.0-36.0); MEAN CELL VOLUME 80.5 fl (80-96); MEAN PLT VOLUME 8.8 fl (7.5-11.1); PLATELET COUNT 199 K/MM3 (134-434); RBC 3.98 M/mm3 (3.60-5.2); RDW 14.1 % (11.6-15.6); WHITE BLOOD COUNT 14.5 K/mm3 (4.0-10.0)
[2020-06-04 07:39] LABS: ALBUMIN 1.9 g/dl (3.4-5.0); BILIRUBIN,TOTAL 0.2 mg/dL (0.2-1); BLOOD UREA NITROGEN 29.5 mg/dL (7-18); CALCIUM 8.5 mg/dL (8.5-10.1); CREATININE 0.5 mg/dL (0.55-1.3); MAGNESIUM 2.1 mg/dL (1.8-2.4); PHOSPHOROUS 3.2 mg/dL (2.5-4.9); POTASSIUM 4.8 mmol/L (3.5-5.1); TOT PROT 5.1 g/dl (6.4-8.2)
[2020-06-04] MEDS: FAMOTIDINE 20 MG/50 ML IVPB 20 MG/50 ML MG IVPB SCH ×2 (09:32→21:08)
[2020-06-04] MEDS: PROPOFOL 1,000,000 MCG/100 ML VIAL IVPB SCH (09:33)
[2020-06-04] MEDS ORDERED: PT OWN MED DRAWER 7, Y5N ONE ×2 (11:10→12:25)
[2020-06-04] MEDS: ZINC SULFATE 220 MG CAPSULE (FP) PO SCH ×2 (11:15→21:08)
[2020-06-04] MEDS: CHOLECALCIFEROL (VIT D3) 1,000 UNIT (25 MCG) TABLET PO SCH (11:15)
[2020-06-04] MEDS: ASCORBIC ACID 500 MG TABLET (FP) PO SCH ×2 (11:17→21:08)
[2020-06-04] MEDS: DEXAMETHASONE SOD PHOSPHATE 10 MG/1 ML VIAL IVPUSH SCH (11:22)
[2020-06-04] MEDS: FENTANYL NS IVPB 500 MCG/100 ML BAG IVPB SCH (12:06)
[2020-06-04] MEDS: ENOXAPARIN NA (PORCINE) 80 MG/0.8 ML DISP.SYRIN SQ SCH ×2 (14:00→21:07)
[2020-06-04] MEDS: INSULIN SLIDING SCALE (NOVOLOG) 1 VIAL SQ SCH ×2 (15:17→21:30)
[2020-06-04] MEDS: REMDESIVIR 100 MG in SODIUM CHLORIDE 230 ML IVPB SCH (15:19)
[2020-06-04] MEDS: DEXMEDETOMIDINE IN 0.9 % NACL 400 MCG/100 ML VIAL IVPB SCH (16:54)
[2020-06-04] MEDS: CHLORHEXIDINE GLUCONATE 4% CLEANSER FOR DECOLONIZATION TP SCH (21:08)
[2020-06-05] MEDS: INSULIN SLIDING SCALE (NOVOLOG) 1 VIAL SQ SCH ×3 (06:09→21:33)
[2020-06-05 07:34] LABS: EOS % 0.1 % (0-4.5); HEMATOCRIT 30.2 % (32.4-45.2); HEMOGLOBIN 9.8 GM/dL (10.7-15.3); LYMPH % 8.8 % (8-40); MCH 26.2 pg (25.7-33.7); MCHC 32.5 g/dl (32.0-36.0); MEAN CELL VOLUME 80.7 fl (80-96); MEAN PLT VOLUME 9.2 fl (7.5-11.1); MONO % 5.2 % (3.8-10.2); NEUT % 85.9 % (42.8-82.8); PLATELET COUNT 174 K/MM3 (134-434); RBC 3.74 M/mm3 (3.60-5.2); WHITE BLOOD COUNT 14.6 K/mm3 (4.0-10.0)
[2020-06-05 08:10] LABS: ALBUMIN 1.8 g/dl (3.4-5.0); CALCIUM 7.9 mg/dL (8.5-10.1)
[2020-06-05 08:11] LABS: BLOOD UREA NITROGEN 25.1 mg/dL (7-18)
[2020-06-05 08:14] LABS: CREATININE 0.4 mg/dL (0.55-1.3); PHOSPHOROUS 3.1 mg/dL (2.5-4.9)
[2020-06-05 08:15] LABS: BILIRUBIN,TOTAL 0.4 mg/dL (0.2-1); TOT PROT 4.9 g/dl (6.4-8.2)
[2020-06-05 08:30] LABS: POTASSIUM 4.8 mmol/L (3.5-5.1)
[2020-06-05] MEDS: ASCORBIC ACID 500 MG TABLET (FP) PO SCH ×2 (09:29→21:35)
[2020-06-05] MEDS: CHOLECALCIFEROL (VIT D3) 1,000 UNIT (25 MCG) TABLET PO SCH (09:29)
[2020-06-05] MEDS: DEXAMETHASONE SOD PHOSPHATE 10 MG/1 ML VIAL IVPUSH SCH (09:29)
[2020-06-05] MEDS: FAMOTIDINE 20 MG/50 ML IVPB 20 MG/50 ML MG IVPB SCH ×2 (09:29→21:35)
[2020-06-05] MEDS: ZINC SULFATE 220 MG CAPSULE (FP) PO SCH ×2 (09:29→21:34)
[2020-06-05 09:49] LABS: ANISOCYTOSIS 2+; MACROCYTOSIS 1+; PLATELET ESTIMATE NORMAL
[2020-06-05] MEDS: PROPOFOL 1,000,000 MCG/100 ML VIAL IVPB SCH ×2 (10:00→21:34)
[2020-06-05] MEDS: ENOXAPARIN NA (PORCINE) 80 MG/0.8 ML DISP.SYRIN SQ SCH ×2 (10:59→21:34)
[2020-06-05] MEDS: DEXMEDETOMIDINE IN 0.9 % NACL 400 MCG/100 ML VIAL IVPB SCH (12:32)
[2020-06-05] MEDS ORDERED: PT OWN MED DRAWER 7, Y5N ONE (15:12)
[2020-06-05] MEDS: REMDESIVIR 100 MG in SODIUM CHLORIDE 230 ML IVPB SCH (15:51)
[2020-06-05] MEDS: CHLORHEXIDINE GLUCONATE 4% CLEANSER FOR DECOLONIZATION TP SCH (21:34)
[2020-06-06] MEDS: INSULIN SLIDING SCALE (NOVOLOG) 1 VIAL SQ SCH ×3 (06:41→21:25)
[2020-06-06] MEDS: PROPOFOL 1,000,000 MCG/100 ML VIAL IVPB SCH (06:42)
[2020-06-06 07:26] LABS: HEMATOCRIT 31.6 % (32.4-45.2); HEMOGLOBIN 10.3 GM/dL (10.7-15.3); MCH 26.4 pg (25.7-33.7); MCHC 32.6 g/dl (32.0-36.0); MEAN CELL VOLUME 81.1 fl (80-96); MEAN PLT VOLUME 9.9 fl (7.5-11.1); PLATELET COUNT 165 K/MM3 (134-434); RBC 3.89 M/mm3 (3.60-5.2); RDW 14.1 % (11.6-15.6); WHITE BLOOD COUNT 18.7 K/mm3 (4.0-10.0)
[2020-06-06 07:52] LABS: POTASSIUM 4.6 mmol/L (3.5-5.1)
[2020-06-06 08:00] LABS: CALCIUM 8.4 mg/dL (8.5-10.1)
[2020-06-06 08:01] LABS: ALBUMIN 1.7 g/dl (3.4-5.0); BLOOD UREA NITROGEN 21.7 mg/dL (7-18)
[2020-06-06] MEDS ORDERED: PT OWN MED DRAWER 7, Y5N ONE ×2 (08:03→13:40)
[2020-06-06 08:04] LABS: CREATININE 0.4 mg/dL (0.55-1.3)
[2020-06-06 08:05] LABS: BILIRUBIN,TOTAL 0.4 mg/dL (0.2-1)
[2020-06-06] MEDS: DEXAMETHASONE SOD PHOSPHATE 10 MG/1 ML VIAL IVPUSH SCH (09:36)
[2020-06-06] MEDS: FAMOTIDINE 20 MG/50 ML IVPB 20 MG/50 ML MG IVPB SCH ×2 (09:37→21:20)
[2020-06-06] MEDS: ENOXAPARIN NA (PORCINE) 80 MG/0.8 ML DISP.SYRIN SQ SCH (09:37)
[2020-06-06] MEDS: ASCORBIC ACID 500 MG TABLET (FP) PO SCH ×2 (09:37→21:20)
[2020-06-06] MEDS: CHOLECALCIFEROL (VIT D3) 1,000 UNIT (25 MCG) TABLET PO SCH (09:38)
[2020-06-06] MEDS: ZINC SULFATE 220 MG CAPSULE (FP) PO SCH ×2 (09:38→21:20)
[2020-06-06] MEDS: REMDESIVIR 100 MG in SODIUM CHLORIDE 230 ML IVPB SCH (15:39)
[2020-06-06] MEDS: DEXMEDETOMIDINE IN 0.9 % NACL 400 MCG/100 ML VIAL IVPB SCH (16:23)
[2020-06-06] MEDS: CHLORHEXIDINE GLUCONATE 4% CLEANSER FOR DECOLONIZATION TP SCH (21:20)
[2020-06-07] MEDS ORDERED: DEXTROSE 50%-WATER 25 GM/50 ML DISP.SYRIN ONE (06:23)
[2020-06-07] MEDS ORDERED: DEXTROSE 50%-WATER - 25 GM/50 ML VIAL IVPUSH ONE (06:33)
[2020-06-07 07:04] LABS: HEMOGLOBIN 10.1 GM/dL (10.7-15.3); MCH 26.4 pg (25.7-33.7); MCHC 32.6 g/dl (32.0-36.0); MEAN CELL VOLUME 81.1 fl (80-96); MEAN PLT VOLUME 9.9 fl (7.5-11.1); PLATELET COUNT 191 K/MM3 (134-434); RBC 3.82 M/mm3 (3.60-5.2); RDW 13.8 % (11.6-15.6); WHITE BLOOD COUNT 17.4 K/mm3 (4.0-10.0)
[2020-06-07 07:33] LABS: POTASSIUM 4.3 mmol/L (3.5-5.1)
[2020-06-07 07:39] LABS: ALBUMIN 1.8 g/dl (3.4-5.0); BLOOD UREA NITROGEN 19.8 mg/dL (7-18); CALCIUM 8.1 mg/dL (8.5-10.1)
[2020-06-07 07:40] LABS: MAGNESIUM 1.8 mg/dL (1.8-2.4)
[2020-06-07 07:42] LABS: CREATININE 0.4 mg/dL (0.55-1.3); PHOSPHOROUS 2.9 mg/dL (2.5-4.9)
[2020-06-07 07:43] LABS: BILIRUBIN,TOTAL 0.7 mg/dL (0.2-1); TOT PROT 5.2 g/dl (6.4-8.2)
[2020-06-07] MEDS ORDERED: METOPROLOL TARTRATE 5 MG/5 ML VIAL IVPUSH ONE ×2 (09:00→19:07)
[2020-06-07] MEDS: DEXAMETHASONE SOD PHOSPHATE 10 MG/1 ML VIAL IVPUSH SCH (09:07)
[2020-06-07] MEDS: FAMOTIDINE 20 MG/50 ML IVPB 20 MG/50 ML MG IVPB SCH ×2 (09:09→22:11)
[2020-06-07] MEDS: ZINC SULFATE 220 MG CAPSULE (FP) PO SCH ×2 (12:11→22:11)
[2020-06-07] MEDS: ASCORBIC ACID 500 MG TABLET (FP) PO SCH ×2 (12:12→22:14)
[2020-06-07] MEDS: CHOLECALCIFEROL (VIT D3) 1,000 UNIT (25 MCG) TABLET PO SCH (12:12)
[2020-06-07] MEDS: INSULIN SLIDING SCALE (NOVOLOG) 1 VIAL SQ SCH ×2 (14:01→22:00)
[2020-06-07] MEDS ORDERED: PT OWN MED DRAWER 7, Y5N ONE ×3 (14:05→20:50)
[2020-06-07] MEDS ORDERED: dilTIAZem HCL 50 MG/10 ML - 10 ML VIAL IVPUSH PRN (14:10)
[2020-06-07] MEDS: AMINO ACIDS 4.25%/D5W 1,000 ML IV SCH (15:29)
[2020-06-07] MEDS: MULTIVIT INJ. ADULT COMBO WITH VIT K 1 COMBO 10 ML VIAL IV SCH (15:30)
[2020-06-07] MEDS: ENOXAPARIN NA (PORCINE) 40 MG/0.4 ML DISP.SYRIN SQ SCH (17:07)
[2020-06-07] MEDS ORDERED: NOREPINEPHRINE NS PREMIX 16,000 MCG/500 ML BAG IVPB ONE (20:52)
[2020-06-07] MEDS ORDERED: SMOFLIPID - FAT EMUL/SOY/MCT/OLIV/FISH OIL 250 ML EMULSION IV SCH (22:00)
[2020-06-07] MEDS: CHLORHEXIDINE GLUCONATE 4% CLEANSER FOR DECOLONIZATION TP SCH (22:11)
[2020-06-07] MEDS: FAT EMUL/SOY/MCT/OLIV/FISH OIL 250 ML IV SCH (22:13)
[2020-06-08] MEDS: INSULIN SLIDING SCALE (NOVOLOG) 1 VIAL SQ SCH ×3 (06:35→22:00)
[2020-06-08 06:53] LABS: HEMATOCRIT 30.3 % (32.4-45.2); HEMOGLOBIN 9.9 GM/dL (10.7-15.3); MCH 26.6 pg (25.7-33.7); MCHC 32.7 g/dl (32.0-36.0); MEAN CELL VOLUME 81.2 fl (80-96); MEAN PLT VOLUME 9.8 fl (7.5-11.1); PLATELET COUNT 194 K/MM3 (134-434); RBC 3.73 M/mm3 (3.60-5.2); RDW 13.8 % (11.6-15.6); WHITE BLOOD COUNT 16.6 K/mm3 (4.0-10.0)
[2020-06-08 07:08] LABS: POTASSIUM 3.8 mmol/L (3.5-5.1)
[2020-06-08 07:13] LABS: CALCIUM 8.1 mg/dL (8.5-10.1)
[2020-06-08 07:14] LABS: ALBUMIN 1.9 g/dl (3.4-5.0); BLOOD UREA NITROGEN 20.6 mg/dL (7-18); MAGNESIUM 1.9 mg/dL (1.8-2.4)
[2020-06-08 07:17] LABS: CREATININE 0.5 mg/dL (0.55-1.3); PHOSPHOROUS 2.2 mg/dL (2.5-4.9)
[2020-06-08 07:18] LABS: BILIRUBIN,TOTAL 0.7 mg/dL (0.2-1); TOT PROT 5.4 g/dl (6.4-8.2)
[2020-06-08] MEDS: ENOXAPARIN NA (PORCINE) 40 MG/0.4 ML DISP.SYRIN SQ SCH (10:25)
[2020-06-08] MEDS: DEXAMETHASONE SOD PHOSPHATE 10 MG/1 ML VIAL IVPUSH SCH (10:27)
[2020-06-08] MEDS: FAMOTIDINE 20 MG/50 ML IVPB 20 MG/50 ML MG IVPB SCH ×2 (10:27→22:19)
[2020-06-08] MEDS: ZINC SULFATE 220 MG CAPSULE (FP) PO SCH ×2 (12:18→22:37)
[2020-06-08] MEDS: CHOLECALCIFEROL (VIT D3) 1,000 UNIT (25 MCG) TABLET PO SCH (12:18)
[2020-06-08] MEDS: ASCORBIC ACID 500 MG TABLET (FP) PO SCH ×2 (12:18→22:39)
[2020-06-08] MEDS: MULTIVIT INJ. ADULT COMBO WITH VIT K 1 COMBO 10 ML VIAL IV SCH (15:17)
[2020-06-08] MEDS: AMINO ACIDS 4.25%/D5W 1,000 ML IV SCH (15:17)
[2020-06-08] MEDS: FAT EMUL/SOY/MCT/OLIV/FISH OIL 250 ML IV SCH (22:19)
[2020-06-08] MEDS: CHLORHEXIDINE GLUCONATE 4% CLEANSER FOR DECOLONIZATION TP SCH (22:44)
[2020-06-09] MEDS: INSULIN SLIDING SCALE (NOVOLOG) 1 VIAL SQ SCH ×3 (06:33→21:37)
[2020-06-09] MEDS ORDERED: FUROSEMIDE 40 MG/4 ML INJECTABLE VIAL IVPUSH ONE (09:30)
[2020-06-09] MEDS: FAMOTIDINE 20 MG/50 ML IVPB 20 MG/50 ML MG IVPB SCH ×2 (09:51→21:37)
[2020-06-09] MEDS: ENOXAPARIN NA (PORCINE) 40 MG/0.4 ML DISP.SYRIN SQ SCH (09:51)
[2020-06-09] MEDS: ASCORBIC ACID 500 MG TABLET (FP) PO SCH ×2 (09:52→21:37)
[2020-06-09] MEDS: CHOLECALCIFEROL (VIT D3) 1,000 UNIT (25 MCG) TABLET PO SCH (09:52)
[2020-06-09] MEDS: ZINC SULFATE 220 MG CAPSULE (FP) PO SCH ×2 (09:52→21:37)
[2020-06-09] MEDS: DEXAMETHASONE SOD PHOSPHATE 4 MG/1 ML VIAL IVPUSH SCH (09:53)
[2020-06-09] MEDS: AMINO ACIDS 4.25%/D5W 1,000 ML IV SCH (12:44)
[2020-06-09] MEDS ORDERED: PT OWN MED DRAWER 7, Y5N ONE ×2 (12:47→20:55)
[2020-06-09] MEDS: MULTIVIT INJ. ADULT COMBO WITH VIT K 1 COMBO 10 ML VIAL IV SCH (13:18)
[2020-06-09] MEDS: CHLORHEXIDINE GLUCONATE 4% CLEANSER FOR DECOLONIZATION TP SCH (21:38)
[2020-06-09] MEDS: FAT EMUL/SOY/MCT/OLIV/FISH OIL 250 ML IV SCH (22:49)
[2020-06-10] MEDS: INSULIN SLIDING SCALE (NOVOLOG) 1 VIAL SQ SCH ×2 (06:45→16:36)
[2020-06-10 06:47] LABS: HEMATOCRIT 29.2 % (32.4-45.2); HEMOGLOBIN 9.6 GM/dL (10.7-15.3); MCH 26.5 pg (25.7-33.7); MCHC 32.9 g/dl (32.0-36.0); MEAN CELL VOLUME 80.6 fl (80-96); MEAN PLT VOLUME 9.3 fl (7.5-11.1); PLATELET COUNT 195 K/MM3 (134-434); RBC 3.62 M/mm3 (3.60-5.2); RDW 13.6 % (11.6-15.6); WHITE BLOOD COUNT 12.6 K/mm3 (4.0-10.0)
[2020-06-10 06:57] LABS: POTASSIUM 3.1 mmol/L (3.5-5.1)
[2020-06-10 06:59] LABS: CALCIUM 8.2 mg/dL (8.5-10.1)
[2020-06-10 07:00] LABS: BLOOD UREA NITROGEN 21.9 mg/dL (7-18); MAGNESIUM 1.9 mg/dL (1.8-2.4)
[2020-06-10 07:02] LABS: BILIRUBIN,DIRECT 0.3 mg/dL (0.0-0.2)
[2020-06-10 07:03] LABS: CREATININE 0.5 mg/dL (0.55-1.3); PHOSPHOROUS 2.3 mg/dL (2.5-4.9)
[2020-06-10 07:04] LABS: BILIRUBIN,TOTAL 0.7 mg/dL (0.2-1); TOT PROT 5.6 g/dl (6.4-8.2)
[2020-06-10] MEDS ORDERED: KCL 10 MEQ IVPB 10 MEQ/100 ML INFUS.BAG IVPB SCH (07:30)
[2020-06-10] MEDS: KCL 10 MEQ IVPB 10 MEQ/100 ML INFUS.BAG IVPB SCH ×2 (08:08→10:08)
[2020-06-10] MEDS ORDERED: POTASSIUM PHOSPHATE 15 MM in SODIUM CHLORIDE 250 ML IVPB ONE (09:00)
[2020-06-10] MEDS: ZINC SULFATE 220 MG CAPSULE (FP) PO SCH (10:09)
[2020-06-10] MEDS: ASCORBIC ACID 500 MG TABLET (FP) PO SCH (10:09)
[2020-06-10] MEDS: CHOLECALCIFEROL (VIT D3) 1,000 UNIT (25 MCG) TABLET PO SCH (10:09)
[2020-06-10] MEDS: FAMOTIDINE 20 MG/50 ML IVPB 20 MG/50 ML MG IVPB SCH ×2 (10:13→21:30)
[2020-06-10] MEDS: ENOXAPARIN NA (PORCINE) 40 MG/0.4 ML DISP.SYRIN SQ SCH (10:13)
[2020-06-10] MEDS: DEXAMETHASONE SOD PHOSPHATE 4 MG/1 ML VIAL IVPUSH SCH (10:14)
[2020-06-10] MEDS ORDERED: PT OWN MED DRAWER 7, Y5N ONE ×2 (13:28→13:46)
[2020-06-10] MEDS: MULTIVIT INJ. ADULT COMBO WITH VIT K 1 COMBO 10 ML VIAL IV SCH (16:38)
[2020-06-10] MEDS: AMINO ACIDS 4.25%/D5W 1,000 ML IV SCH (16:38)
[2020-06-10] MEDS: FAT EMUL/SOY/MCT/OLIV/FISH OIL 250 ML IV SCH (21:34)
[2020-06-10] MEDS ORDERED: dilTIAZem HCL 50 MG/10 ML - 10 ML VIAL IVPUSH PRN (23:39)
[2020-06-11] MEDS: INSULIN SLIDING SCALE (NOVOLOG) 1 VIAL SQ SCH ×3 (06:38→21:16)
[2020-06-11 07:25] LABS: BASO % 0.6 % (0-2.0); HEMATOCRIT 29.9 % (32.4-45.2); HEMOGLOBIN 9.8 GM/dL (10.7-15.3); LYMPH % 10.5 % (8-40); MCH 26.6 pg (25.7-33.7); MCHC 32.9 g/dl (32.0-36.0); MEAN PLT VOLUME 9.7 fl (7.5-11.1); MONO % 5.5 % (3.8-10.2); NEUT % 82.4 % (42.8-82.8); PLATELET COUNT 227 K/MM3 (134-434); RDW 13.8 % (11.6-15.6); WHITE BLOOD COUNT 12.6 K/mm3 (4.0-10.0)
[2020-06-11] MEDS ORDERED: ALPRAZolam 0.25 MG TABLET PO PRN (07:36)
[2020-06-11 07:39] LABS: POTASSIUM 3.2 mmol/L (3.5-5.1)
[2020-06-11 07:41] LABS: ALBUMIN 2.1 g/dl (3.4-5.0); CALCIUM 8.4 mg/dL (8.5-10.1)
[2020-06-11 07:42] LABS: BLOOD UREA NITROGEN 19.1 mg/dL (7-18); MAGNESIUM 1.8 mg/dL (1.8-2.4)
[2020-06-11 07:45] LABS: CREATININE 0.5 mg/dL (0.55-1.3)
[2020-06-11 07:46] LABS: BILIRUBIN,TOTAL 0.8 mg/dL (0.2-1)
[2020-06-11] MEDS: DEXAMETHASONE SOD PHOSPHATE 4 MG/1 ML VIAL IVPUSH SCH (09:32)
[2020-06-11] MEDS: CHOLECALCIFEROL (VIT D3) 1,000 UNIT (25 MCG) TABLET PO SCH ×2 (09:32→15:24)
[2020-06-11] MEDS: FAMOTIDINE 20 MG/50 ML IVPB 20 MG/50 ML MG IVPB SCH ×2 (09:32→21:00)
[2020-06-11] MEDS: ASCORBIC ACID 500 MG TABLET (FP) PO SCH ×3 (09:32→21:00)
[2020-06-11] MEDS: ENOXAPARIN NA (PORCINE) 40 MG/0.4 ML DISP.SYRIN SQ SCH (09:32)
[2020-06-11] MEDS: ZINC SULFATE 220 MG CAPSULE (FP) PO SCH ×3 (09:32→21:00)
[2020-06-11] MEDS ORDERED: LORazepam 2 MG/ML SDV VIAL IVPUSH ONE (10:30)
[2020-06-11] MEDS: POTASSIUM CHLORIDE 40 MEQ in AMINO ACIDS 4.25%/D5W 1,000 ML IV SCH (12:30)
[2020-06-11] MEDS ORDERED: AMINO ACIDS 4.25%/D5W 1,000 ML IV SCH (13:30)
[2020-06-11] MEDS: MULTIVIT INJ. ADULT COMBO WITH VIT K 1 COMBO 10 ML VIAL IV SCH (14:07)
[2020-06-11] MEDS: NAPH,MB-DB/K PH,MBDB POWDER PACKET PO SCH ×2 (18:13→21:44)
[2020-06-11] MEDS ORDERED: CHLORHEXIDINE GLUCONATE 4% CLEANSER FOR DECOLONIZATION TP SCH (22:00)
[2020-06-11] MEDS: FAT EMUL/SOY/MCT/OLIV/FISH OIL 250 ML IV SCH (22:05)
[2020-06-12] MEDS: ENOXAPARIN NA (PORCINE) 40 MG/0.4 ML DISP.SYRIN SQ SCH (09:40)
[2020-06-12] MEDS: CHOLECALCIFEROL (VIT D3) 1,000 UNIT (25 MCG) TABLET PO SCH (09:40)
[2020-06-12] MEDS: NAPH,MB-DB/K PH,MBDB POWDER PACKET PO SCH ×2 (09:40→21:31)
[2020-06-12] MEDS: ASCORBIC ACID 500 MG TABLET (FP) PO SCH ×2 (09:40→21:31)
[2020-06-12] MEDS: ZINC SULFATE 220 MG CAPSULE (FP) PO SCH ×2 (09:40→21:31)
[2020-06-12] MEDS: FAMOTIDINE 20 MG/50 ML IVPB 20 MG/50 ML MG IVPB SCH ×2 (09:40→21:31)
[2020-06-12] MEDS: DEXAMETHASONE SOD PHOSPHATE 4 MG/1 ML VIAL IVPUSH SCH (09:40)
[2020-06-12] MEDS: INSULIN SLIDING SCALE (NOVOLOG) 1 VIAL SQ SCH ×3 (09:41→22:52)
[2020-06-12] MEDS: POTASSIUM CHLORIDE 40 MEQ in AMINO ACIDS 4.25%/D5W 1,000 ML IV SCH (16:24)
[2020-06-12] MEDS: MULTIVIT INJ. ADULT COMBO WITH VIT K 1 COMBO 10 ML VIAL IV SCH (16:24)
[2020-06-12 17:52] LABS: BASO % 0.4 % (0-2.0); EOS % 0.1 % (0-4.5); HEMATOCRIT 30.8 % (32.4-45.2); HEMOGLOBIN 10.3 GM/dL (10.7-15.3); LYMPH % 6.4 % (8-40); MCH 27.2 pg (25.7-33.7); MCHC 33.6 g/dl (32.0-36.0); MEAN CELL VOLUME 80.9 fl (80-96); MEAN PLT VOLUME 9.5 fl (7.5-11.1); MONO % 1.3 % (3.8-10.2); NEUT % 91.8 % (42.8-82.8); PLATELET COUNT 265 K/MM3 (134-434); RDW 13.8 % (11.6-15.6); WHITE BLOOD COUNT 10.6 K/mm3 (4.0-10.0)
[2020-06-12 18:15] LABS: POTASSIUM 4.5 mmol/L (3.5-5.1)
[2020-06-12 18:17] LABS: ALBUMIN 2.1 g/dl (3.4-5.0); CALCIUM 8.6 mg/dL (8.5-10.1)
[2020-06-12 18:18] LABS: BLOOD UREA NITROGEN 16.4 mg/dL (7-18)
[2020-06-12 18:21] LABS: BILIRUBIN,TOTAL 0.6 mg/dL (0.2-1); CREATININE 0.4 mg/dL (0.55-1.3); PHOSPHOROUS 2.5 mg/dL (2.5-4.9); TOT PROT 6.3 g/dl (6.4-8.2)
[2020-06-12 18:36] LABS: ANISOCYTOSIS 0; MACROCYTOSIS 0; OVALOCYTE 1+; PLATELET ESTIMATE NORMAL
[2020-06-12] MEDS ORDERED: LORazepam 2 MG/ML SDV VIAL IVPUSH ONE ×2 (19:45)
[2020-06-12] MEDS: FAT EMUL/SOY/MCT/OLIV/FISH OIL 250 ML IV SCH (22:52)
[2020-06-13] MEDS: INSULIN SLIDING SCALE (NOVOLOG) 1 VIAL SQ SCH ×3 (06:18→23:13)
[2020-06-13] MEDS: ZINC SULFATE 220 MG CAPSULE (FP) PO SCH ×2 (09:11→23:05)
[2020-06-13] MEDS: ASCORBIC ACID 500 MG TABLET (FP) PO SCH ×2 (09:11→23:06)
[2020-06-13] MEDS: CHOLECALCIFEROL (VIT D3) 1,000 UNIT (25 MCG) TABLET PO SCH (09:11)
[2020-06-13] MEDS: FAMOTIDINE 20 MG/50 ML IVPB 20 MG/50 ML MG IVPB SCH ×2 (09:11→23:17)
[2020-06-13] MEDS: DEXAMETHASONE SOD PHOSPHATE 4 MG/1 ML VIAL IVPUSH SCH (09:12)
[2020-06-13] MEDS: ENOXAPARIN NA (PORCINE) 40 MG/0.4 ML DISP.SYRIN SQ SCH (09:12)
[2020-06-13 10:40] LABS: BASO % 0.4 % (0-2.0); EOS % 1.3 % (0-4.5); HEMATOCRIT 33.3 % (32.4-45.2); HEMOGLOBIN 10.9 GM/dL (10.7-15.3); LYMPH % 15.1 % (8-40); MCH 26.6 pg (25.7-33.7); MCHC 32.7 g/dl (32.0-36.0); MEAN CELL VOLUME 81.5 fl (80-96); MEAN PLT VOLUME 9.2 fl (7.5-11.1); MONO % 5.3 % (3.8-10.2); NEUT % 77.9 % (42.8-82.8); PLATELET COUNT 289 K/MM3 (134-434); RBC 4.09 M/mm3 (3.60-5.2); RDW 14.3 % (11.6-15.6); WHITE BLOOD COUNT 14.2 K/mm3 (4.0-10.0)
[2020-06-13 11:07] LABS: POTASSIUM 4.1 mmol/L (3.5-5.1)
[2020-06-13 11:09] LABS: ALBUMIN 2.2 g/dl (3.4-5.0); CALCIUM 9.1 mg/dL (8.5-10.1); MAGNESIUM 1.9 mg/dL (1.8-2.4)
[2020-06-13 11:13] LABS: CREATININE 0.4 mg/dL (0.55-1.3)
[2020-06-13 11:14] LABS: BILIRUBIN,TOTAL 0.8 mg/dL (0.2-1); TOT PROT 6.8 g/dl (6.4-8.2)
[2020-06-13] MEDS: MEGESTROL ACETATE 40 MG TABLET PO SCH (13:43)
[2020-06-13] MEDS: MULTIVIT INJ. ADULT COMBO WITH VIT K 1 COMBO 10 ML VIAL IV SCH (13:47)
[2020-06-13] MEDS: POTASSIUM CHLORIDE 40 MEQ in AMINO ACIDS 4.25%/D5W 1,000 ML IV SCH (13:47)
[2020-06-13] MEDS ORDERED: PT OWN MED DRAWER 7, Y5N ONE (23:16)
[2020-06-13] MEDS: FAT EMUL/SOY/MCT/OLIV/FISH OIL 250 ML IV SCH (23:17)
[2020-06-14] MEDS: INSULIN SLIDING SCALE (NOVOLOG) 1 VIAL SQ SCH ×3 (07:12→22:36)
[2020-06-14] MEDS: ENOXAPARIN NA (PORCINE) 40 MG/0.4 ML DISP.SYRIN SQ SCH (09:18)
[2020-06-14] MEDS: ZINC SULFATE 220 MG CAPSULE (FP) PO SCH ×2 (09:18→22:36)
[2020-06-14] MEDS: ASCORBIC ACID 500 MG TABLET (FP) PO SCH ×2 (09:18→22:36)
[2020-06-14] MEDS: CHOLECALCIFEROL (VIT D3) 1,000 UNIT (25 MCG) TABLET PO SCH (09:18)
[2020-06-14] MEDS: FAMOTIDINE 20 MG/50 ML IVPB 20 MG/50 ML MG IVPB SCH ×2 (09:18→22:36)
[2020-06-14] MEDS: MEGESTROL ACETATE 40 MG TABLET PO SCH (09:18)
[2020-06-14] MEDS: DEXAMETHASONE SOD PHOSPHATE 4 MG/1 ML VIAL IVPUSH SCH (09:19)
[2020-06-14] MEDS: LORazepam 2 MG/ML SDV VIAL IVPUSH SCH ×2 (09:32→15:24)
[2020-06-14 10:31] LABS: POTASSIUM 3.7 mmol/L (3.5-5.1)
[2020-06-14 10:34] LABS: BASO % 0.6 % (0-2.0); EOS % 1.6 % (0-4.5); HEMOGLOBIN 10.8 GM/dL (10.7-15.3); LYMPH % 8.5 % (8-40); MCHC 31.7 g/dl (32.0-36.0); MEAN CELL VOLUME 81.9 fl (80-96); MEAN PLT VOLUME 9.7 fl (7.5-11.1); MONO % 4.6 % (3.8-10.2); NEUT % 84.7 % (42.8-82.8); PLATELET COUNT 296 K/MM3 (134-434); RBC 4.15 M/mm3 (3.60-5.2); RDW 14.5 % (11.6-15.6); WHITE BLOOD COUNT 12.1 K/mm3 (4.0-10.0)
[2020-06-14 10:48] LABS: ALBUMIN 2.3 g/dl (3.4-5.0); BLOOD UREA NITROGEN 20.1 mg/dL (7-18)
[2020-06-14 10:50] LABS: MAGNESIUM 1.8 mg/dL (1.8-2.4)
[2020-06-14 10:53] LABS: BILIRUBIN,TOTAL 0.7 mg/dL (0.2-1); TOT PROT 6.7 g/dl (6.4-8.2)
[2020-06-14 10:55] LABS: CREATININE 0.5 mg/dL (0.55-1.3)
[2020-06-14 10:58] LABS: CALCIUM 9.1 mg/dL (8.5-10.1)
[2020-06-14] MEDS: MULTIVIT INJ. ADULT COMBO WITH VIT K 1 COMBO 10 ML VIAL IV SCH (15:22)
[2020-06-14] MEDS: POTASSIUM CHLORIDE 40 MEQ in AMINO ACIDS 4.25%/D5W 1,000 ML IV SCH (15:23)
[2020-06-14] MEDS: FAT EMUL/SOY/MCT/OLIV/FISH OIL 250 ML IV SCH (22:36)
[2020-06-15] MEDS: POTASSIUM CHLORIDE 40 MEQ in AMINO ACIDS 4.25%/D5W 1,000 ML IV SCH (07:00)
[2020-06-15 07:57] LABS: BASO % 0.4 % (0-2.0); EOS % 1.9 % (0-4.5); HEMATOCRIT 31.3 % (32.4-45.2); HEMOGLOBIN 10.4 GM/dL (10.7-15.3); LYMPH % 10.3 % (8-40); MCH 26.7 pg (25.7-33.7); MCHC 33.2 g/dl (32.0-36.0); MEAN CELL VOLUME 80.5 fl (80-96); MEAN PLT VOLUME 9.4 fl (7.5-11.1); MONO % 5.5 % (3.8-10.2); NEUT % 81.9 % (42.8-82.8); PLATELET COUNT 297 K/MM3 (134-434); RBC 3.89 M/mm3 (3.60-5.2); WHITE BLOOD COUNT 12.9 K/mm3 (4.0-10.0)
[2020-06-15] MEDS: INSULIN SLIDING SCALE (NOVOLOG) 1 VIAL SQ SCH ×3 (07:57→22:19)
[2020-06-15 08:14] LABS: POTASSIUM 3.5 mmol/L (3.5-5.1)
[2020-06-15 08:15] LABS: ALBUMIN 2.3 g/dl (3.4-5.0)
[2020-06-15 08:17] LABS: CALCIUM 8.8 mg/dL (8.5-10.1)
[2020-06-15 08:21] LABS: CREATININE 0.5 mg/dL (0.55-1.3)
[2020-06-15 08:22] LABS: BILIRUBIN,TOTAL 0.7 mg/dL (0.2-1)
[2020-06-15 08:23] LABS: TOT PROT 6.4 g/dl (6.4-8.2)
[2020-06-15 08:34] LABS: MAGNESIUM 1.7 mg/dL (1.8-2.4)
[2020-06-15] MEDS ORDERED: PT OWN MED DRAWER 7, Y5N ONE (10:22)
[2020-06-15] MEDS: FAMOTIDINE 20 MG/50 ML IVPB 20 MG/50 ML MG IVPB SCH ×2 (10:29→22:02)
[2020-06-15] MEDS: ENOXAPARIN NA (PORCINE) 40 MG/0.4 ML DISP.SYRIN SQ SCH (10:29)
[2020-06-15] MEDS: DEXAMETHASONE SOD PHOSPHATE 4 MG/1 ML VIAL IVPUSH SCH (10:30)
[2020-06-15] MEDS: MEGESTROL ACETATE 40 MG TABLET PO SCH (10:30)
[2020-06-15] MEDS: ASCORBIC ACID 500 MG TABLET (FP) PO SCH ×2 (10:30→22:10)
[2020-06-15] MEDS: ZINC SULFATE 220 MG CAPSULE (FP) PO SCH ×2 (10:30→22:20)
[2020-06-15] MEDS: CHOLECALCIFEROL (VIT D3) 1,000 UNIT (25 MCG) TABLET PO SCH (10:31)
[2020-06-15] MEDS: MULTIVIT INJ. ADULT COMBO WITH VIT K 1 COMBO 10 ML VIAL IV SCH (13:00)
[2020-06-15] MEDS: POTASSIUM CHLORIDE 60 MEQ in AMINO ACIDS 4.25%/D5W 1,000 ML IV SCH (18:06)
[2020-06-15] MEDS: FAT EMUL/SOY/MCT/OLIV/FISH OIL 250 ML IV SCH (22:04)
[2020-06-16] MEDS: LORazepam 2 MG/ML SDV VIAL IVPUSH PRN ×2 (01:13→23:01)
[2020-06-16] MEDS: INSULIN SLIDING SCALE (NOVOLOG) 1 VIAL SQ SCH ×3 (07:36→22:52)
[2020-06-16 07:45] LABS: MAGNESIUM 1.7 mg/dL (1.8-2.4)
[2020-06-16 07:48] LABS: PHOSPHOROUS 2.6 mg/dL (2.5-4.9)
[2020-06-16] MEDS ORDERED: PT OWN MED DRAWER 7, Y5N ONE (08:30)
[2020-06-16] MEDS: MEGESTROL ACETATE 40 MG TABLET PO SCH (09:41)
[2020-06-16] MEDS: FAMOTIDINE 20 MG/50 ML IVPB 20 MG/50 ML MG IVPB SCH ×2 (09:41→22:35)
[2020-06-16] MEDS: DEXAMETHASONE SOD PHOSPHATE 4 MG/1 ML VIAL IVPUSH SCH (09:42)
[2020-06-16] MEDS: CHOLECALCIFEROL (VIT D3) 1,000 UNIT (25 MCG) TABLET PO SCH (09:42)
[2020-06-16] MEDS: ENOXAPARIN NA (PORCINE) 40 MG/0.4 ML DISP.SYRIN SQ SCH (09:42)
[2020-06-16] MEDS: ASCORBIC ACID 500 MG TABLET (FP) PO SCH ×2 (09:42→22:33)
[2020-06-16] MEDS: ZINC SULFATE 220 MG CAPSULE (FP) PO SCH ×2 (09:42→22:35)
[2020-06-16] MEDS: POTASSIUM CHLORIDE 60 MEQ in AMINO ACIDS 4.25%/D5W 1,000 ML IV SCH (10:51)
[2020-06-16] MEDS: MULTIVIT INJ. ADULT COMBO WITH VIT K 1 COMBO 10 ML VIAL IV SCH (12:46)
[2020-06-16] MEDS ORDERED: APIXABAN 5 MG TABLET PO SCH (22:00)
[2020-06-16] MEDS: ATORVASTATIN CA 40 MG TABLET (FP) PO SCH (22:35)
[2020-06-16] MEDS: METOPROLOL TARTRATE 25 MG TABLET (FP) PO SCH (22:35)
[2020-06-16] MEDS: FAT EMUL/SOY/MCT/OLIV/FISH OIL 250 ML IV SCH (22:36)
[2020-06-17] MEDS: POTASSIUM CHLORIDE 60 MEQ in AMINO ACIDS 4.25%/D5W 1,000 ML IV SCH ×2 (03:36→18:49)
[2020-06-17] MEDS: MULTIVIT INJ. ADULT COMBO WITH VIT K 1 COMBO 10 ML VIAL IV SCH ×2 (03:37→16:12)
[2020-06-17] MEDS: INSULIN SLIDING SCALE (NOVOLOG) 1 VIAL SQ SCH ×3 (06:01→22:17)
[2020-06-17 09:16] LABS: BASO % 0.9 % (0-2.0); EOS % 1.6 % (0-4.5); HEMATOCRIT 30.6 % (32.4-45.2); LYMPH % 13.4 % (8-40); MCH 26.8 pg (25.7-33.7); MCHC 32.7 g/dl (32.0-36.0); MEAN CELL VOLUME 81.8 fl (80-96); MEAN PLT VOLUME 9.9 fl (7.5-11.1); NEUT % 78.1 % (42.8-82.8); PLATELET COUNT 274 K/MM3 (134-434); RBC 3.74 M/mm3 (3.60-5.2); RDW 14.3 % (11.6-15.6); WHITE BLOOD COUNT 11.5 K/mm3 (4.0-10.0)
[2020-06-17] MEDS ORDERED: PT OWN MED DRAWER 7, Y5N ONE ×2 (09:17→22:12)
[2020-06-17 09:44] LABS: POTASSIUM 4.7 mmol/L (3.5-5.1)
[2020-06-17 09:47] LABS: ALBUMIN 2.3 g/dl (3.4-5.0); BLOOD UREA NITROGEN 22.2 mg/dL (7-18); MAGNESIUM 1.9 mg/dL (1.8-2.4)
[2020-06-17 09:50] LABS: CREATININE 0.4 mg/dL (0.55-1.3)
[2020-06-17 09:51] LABS: BILIRUBIN,TOTAL 0.5 mg/dL (0.2-1)
[2020-06-17 09:53] LABS: TOT PROT 6.3 g/dl (6.4-8.2)
[2020-06-17] MEDS: METOPROLOL TARTRATE 25 MG TABLET (FP) PO SCH ×2 (09:55→23:01)
[2020-06-17] MEDS: DEXAMETHASONE SOD PHOSPHATE 4 MG/1 ML VIAL IVPUSH SCH (09:55)
[2020-06-17] MEDS: CHOLECALCIFEROL (VIT D3) 1,000 UNIT (25 MCG) TABLET PO SCH (09:55)
[2020-06-17] MEDS: ZINC SULFATE 220 MG CAPSULE (FP) PO SCH ×2 (09:59→23:01)
[2020-06-17] MEDS: FAMOTIDINE 20 MG/50 ML IVPB 20 MG/50 ML MG IVPB SCH ×2 (10:00→22:17)
[2020-06-17] MEDS: ASCORBIC ACID 500 MG TABLET (FP) PO SCH ×2 (10:00→23:01)
[2020-06-17] MEDS: ENOXAPARIN NA (PORCINE) 40 MG/0.4 ML DISP.SYRIN SQ SCH (10:09)
[2020-06-17] MEDS: MEGESTROL ACETATE 40 MG TABLET PO SCH (10:10)
[2020-06-17 11:32] LABS: ANISOCYTOSIS 0; MACROCYTOSIS 0; PLATELET ESTIMATE NORMAL
[2020-06-17] MEDS: FAT EMUL/SOY/MCT/OLIV/FISH OIL 250 ML IV SCH (22:18)
[2020-06-17] MEDS: ATORVASTATIN CA 40 MG TABLET (FP) PO SCH (23:00)
[2020-06-18] MEDS: LORazepam 2 MG/ML SDV VIAL IVPUSH PRN (01:53)
[2020-06-18] MEDS: INSULIN SLIDING SCALE (NOVOLOG) 1 VIAL SQ SCH ×2 (07:01→14:12)
[2020-06-18] MEDS: POTASSIUM CHLORIDE 60 MEQ in AMINO ACIDS 4.25%/D5W 1,000 ML IV SCH ×3 (07:01→22:15)
[2020-06-18 07:25] LABS: BASO % 0.8 % (0-2.0); EOS % 2.2 % (0-4.5); HEMATOCRIT 31.8 % (32.4-45.2); HEMOGLOBIN 10.4 GM/dL (10.7-15.3); LYMPH % 14.7 % (8-40); MCH 26.6 pg (25.7-33.7); MCHC 32.7 g/dl (32.0-36.0); MEAN CELL VOLUME 81.3 fl (80-96); MEAN PLT VOLUME 9.2 fl (7.5-11.1); MONO % 6.1 % (3.8-10.2); NEUT % 76.2 % (42.8-82.8); PLATELET COUNT 298 K/MM3 (134-434); RBC 3.91 M/mm3 (3.60-5.2); RDW 14.6 % (11.6-15.6); WHITE BLOOD COUNT 11.2 K/mm3 (4.0-10.0)
[2020-06-18 07:47] LABS: POTASSIUM 4.1 mmol/L (3.5-5.1)
[2020-06-18 07:50] LABS: CALCIUM 9.3 mg/dL (8.5-10.1)
[2020-06-18 07:51] LABS: ALBUMIN 2.4 g/dl (3.4-5.0); BLOOD UREA NITROGEN 24.2 mg/dL (7-18); MAGNESIUM 1.9 mg/dL (1.8-2.4)
[2020-06-18 07:54] LABS: CREATININE 0.5 mg/dL (0.55-1.3)
[2020-06-18 07:56] LABS: BILIRUBIN,TOTAL 0.5 mg/dL (0.2-1); TOT PROT 6.2 g/dl (6.4-8.2)
[2020-06-18 09:07] LABS: ANISOCYTOSIS 2+; MACROCYTOSIS 0; PLATELET ESTIMATE NORMAL
[2020-06-18] MEDS ORDERED: PT OWN MED DRAWER 7, Y5N ONE (09:42)
[2020-06-18] MEDS: ASCORBIC ACID 500 MG TABLET (FP) PO SCH ×2 (09:55→22:14)
[2020-06-18] MEDS: ZINC SULFATE 220 MG CAPSULE (FP) PO SCH ×2 (09:55→22:13)
[2020-06-18] MEDS: MEGESTROL ACETATE 40 MG TABLET PO SCH (09:56)
[2020-06-18] MEDS: METOPROLOL TARTRATE 25 MG TABLET (FP) PO SCH ×2 (09:56→22:13)
[2020-06-18] MEDS: ENOXAPARIN NA (PORCINE) 40 MG/0.4 ML DISP.SYRIN SQ SCH ×2 (09:56→10:08)
[2020-06-18] MEDS: CHOLECALCIFEROL (VIT D3) 1,000 UNIT (25 MCG) TABLET PO SCH (09:56)
[2020-06-18] MEDS: DEXAMETHASONE SOD PHOSPHATE 4 MG/1 ML VIAL IVPUSH SCH (09:57)
[2020-06-18] MEDS: FAMOTIDINE 20 MG/50 ML IVPB 20 MG/50 ML MG IVPB SCH ×2 (09:58→22:15)
[2020-06-18] MEDS: MULTIVIT INJ. ADULT COMBO WITH VIT K 1 COMBO 10 ML VIAL IV SCH ×2 (13:39→22:16)
[2020-06-18] MEDS: ATORVASTATIN CA 40 MG TABLET (FP) PO SCH (22:13)
[2020-06-18] MEDS: FAT EMUL/SOY/MCT/OLIV/FISH OIL 250 ML IV SCH (22:16)
[2020-06-19 08:07] LABS: BASO % 0.7 % (0-2.0); EOS % 2.1 % (0-4.5); HEMATOCRIT 33.7 % (32.4-45.2); HEMOGLOBIN 10.9 GM/dL (10.7-15.3); LYMPH % 13.7 % (8-40); MCH 26.4 pg (25.7-33.7); MCHC 32.3 g/dl (32.0-36.0); MEAN CELL VOLUME 81.6 fl (80-96); MEAN PLT VOLUME 9.4 fl (7.5-11.1); NEUT % 78.5 % (42.8-82.8); PLATELET COUNT 355 K/MM3 (134-434); RBC 4.13 M/mm3 (3.60-5.2); RDW 14.5 % (11.6-15.6); WHITE BLOOD COUNT 15.5 K/mm3 (4.0-10.0)
[2020-06-19 08:40] LABS: POTASSIUM 3.8 mmol/L (3.5-5.1)
[2020-06-19 08:45] LABS: ALBUMIN 2.6 g/dl (3.4-5.0); BLOOD UREA NITROGEN 17.7 mg/dL (7-18); MAGNESIUM 1.7 mg/dL (1.8-2.4)
[2020-06-19 08:48] LABS: BILIRUBIN,TOTAL 0.6 mg/dL (0.2-1); CREATININE 0.5 mg/dL (0.55-1.3); TOT PROT 6.7 g/dl (6.4-8.2)
[2020-06-19] MEDS: INSULIN SLIDING SCALE (NOVOLOG) 1 VIAL SQ SCH ×3 (08:51→21:55)
[2020-06-19] MEDS: ZINC SULFATE 220 MG CAPSULE (FP) PO SCH ×2 (09:33→21:38)
[2020-06-19] MEDS: METOPROLOL TARTRATE 25 MG TABLET (FP) PO SCH (09:33)
[2020-06-19] MEDS: MEGESTROL ACETATE 40 MG TABLET PO SCH (09:33)
[2020-06-19] MEDS: ASCORBIC ACID 500 MG TABLET (FP) PO SCH ×2 (09:34→21:38)
[2020-06-19] MEDS: CHOLECALCIFEROL (VIT D3) 1,000 UNIT (25 MCG) TABLET PO SCH (09:34)
[2020-06-19] MEDS: POTASSIUM CHLORIDE 60 MEQ in AMINO ACIDS 4.25%/D5W 1,000 ML IV SCH ×2 (09:39→17:41)
[2020-06-19] MEDS: ENOXAPARIN NA (PORCINE) 40 MG/0.4 ML DISP.SYRIN SQ SCH (09:40)
[2020-06-19] MEDS: DEXAMETHASONE SOD PHOSPHATE 4 MG/1 ML VIAL IVPUSH SCH (09:41)
[2020-06-19] MEDS: FAMOTIDINE 20 MG/50 ML IVPB 20 MG/50 ML MG IVPB SCH ×2 (09:41→21:38)
[2020-06-19] MEDS: NYSTATIN 100,000 UNIT/GM TOPICAL CREAM 15 GM TUBE TP SCH ×2 (09:41→21:38)
[2020-06-19 10:50] LABS: ANISOCYTOSIS 0; MACROCYTOSIS 0; PLATELET ESTIMATE NORMAL
[2020-06-19] MEDS ORDERED: METOPROLOL TARTRATE 5 MG/5 ML VIAL IVPUSH ONE (11:56)
[2020-06-19] MEDS ORDERED: MAGNESIUM SULF 50% (8.12 MEQ/2 ML-1 GM VIAL) IVPB ONE (11:58)
[2020-06-19] MEDS ORDERED: metoPROLOL SUCCINATE 25 MG TAB.SR.24H (FP) PO ONE (15:49)
[2020-06-19] MEDS ORDERED: METOPROLOL TARTRATE 25 MG TABLET (FP) PO ONE (17:11)
[2020-06-19] MEDS: MULTIVIT INJ. ADULT COMBO WITH VIT K 1 COMBO 10 ML VIAL IV SCH (17:29)
[2020-06-19] MEDS: ATORVASTATIN CA 40 MG TABLET (FP) PO SCH (21:38)
[2020-06-19] MEDS: METOPROLOL TARTRATE 50 MG TABLET (FP) PO SCH (21:39)
[2020-06-19] MEDS: FAT EMUL/SOY/MCT/OLIV/FISH OIL 250 ML IV SCH (22:05)
[2020-06-20] MEDS: INSULIN SLIDING SCALE (NOVOLOG) 1 VIAL SQ SCH ×3 (07:05→23:32)
[2020-06-20 08:46] LABS: EOS % 2.4 % (0-4.5); HEMATOCRIT 32.5 % (32.4-45.2); HEMOGLOBIN 10.5 GM/dL (10.7-15.3); LYMPH % 10.3 % (8-40); MCH 26.3 pg (25.7-33.7); MCHC 32.2 g/dl (32.0-36.0); MEAN CELL VOLUME 81.6 fl (80-96); MEAN PLT VOLUME 9.8 fl (7.5-11.1); MONO % 4.4 % (3.8-10.2); NEUT % 82.9 % (42.8-82.8); PLATELET COUNT 314 K/MM3 (134-434); RBC 3.98 M/mm3 (3.60-5.2); RDW 14.9 % (11.6-15.6); WHITE BLOOD COUNT 14.7 K/mm3 (4.0-10.0)
[2020-06-20 09:12] LABS: POTASSIUM 4.4 mmol/L (3.5-5.1)
[2020-06-20 09:14] LABS: BLOOD UREA NITROGEN 23.6 mg/dL (7-18)
[2020-06-20 09:15] LABS: CALCIUM 8.8 mg/dL (8.5-10.1)
[2020-06-20 09:16] LABS: ALBUMIN 2.5 g/dl (3.4-5.0); MAGNESIUM 2.3 mg/dL (1.8-2.4)
[2020-06-20 09:19] LABS: CREATININE 0.5 mg/dL (0.55-1.3)
[2020-06-20 09:21] LABS: BILIRUBIN,TOTAL 0.5 mg/dL (0.2-1); TOT PROT 6.3 g/dl (6.4-8.2)
[2020-06-20] MEDS ORDERED: PT OWN MED DRAWER 7, Y5N ONE (10:30)
[2020-06-20] MEDS: FAMOTIDINE 20 MG/50 ML IVPB 20 MG/50 ML MG IVPB SCH ×2 (11:13→22:48)
[2020-06-20] MEDS: ENOXAPARIN NA (PORCINE) 40 MG/0.4 ML DISP.SYRIN SQ SCH (11:13)
[2020-06-20] MEDS: ASCORBIC ACID 500 MG TABLET (FP) PO SCH ×2 (11:14→22:47)
[2020-06-20] MEDS: CHOLECALCIFEROL (VIT D3) 1,000 UNIT (25 MCG) TABLET PO SCH (11:14)
[2020-06-20] MEDS: MEGESTROL ACETATE 40 MG TABLET PO SCH (11:15)
[2020-06-20] MEDS: ZINC SULFATE 220 MG CAPSULE (FP) PO SCH ×2 (11:15→22:47)
[2020-06-20] MEDS: NYSTATIN 100,000 UNIT/GM TOPICAL CREAM 15 GM TUBE TP SCH ×2 (11:15→22:47)
[2020-06-20] MEDS: METOPROLOL TARTRATE 50 MG TABLET (FP) PO SCH ×2 (11:16→22:47)
[2020-06-20] MEDS: LORazepam 2 MG/ML SDV VIAL IVPUSH PRN (11:20)
[2020-06-20] MEDS: DEXAMETHASONE SOD PHOSPHATE 4 MG/1 ML VIAL IVPUSH SCH (11:20)
[2020-06-20 11:59] LABS: ANISOCYTOSIS 0; MACROCYTOSIS 0; PLATELET ESTIMATE NORMAL
[2020-06-20] MEDS ORDERED: BISACODYL 10 MG SUPP.RECT PR ONE (14:30)
[2020-06-20 15:01] VITALS: BMI 26.2
[2020-06-20] MEDS: MULTIVIT INJ. ADULT COMBO WITH VIT K 1 COMBO 10 ML VIAL IV SCH (15:36)
[2020-06-20] MEDS: POTASSIUM CHLORIDE 60 MEQ in AMINO ACIDS 4.25%/D5W 1,000 ML IV SCH (15:36)
[2020-06-20] MEDS: ATORVASTATIN CA 40 MG TABLET (FP) PO SCH (22:47)
[2020-06-20] MEDS: FAT EMUL/SOY/MCT/OLIV/FISH OIL 250 ML IV SCH (22:49)
[2020-06-21] MEDS: INSULIN SLIDING SCALE (NOVOLOG) 1 VIAL SQ SCH ×2 (06:42→13:33)
[2020-06-21] MEDS: POTASSIUM CHLORIDE 60 MEQ in AMINO ACIDS 4.25%/D5W 1,000 ML IV SCH ×3 (06:42→19:12)
[2020-06-21] MEDS: LORazepam 2 MG/ML SDV VIAL IVPUSH PRN ×2 (10:15→22:45)
[2020-06-21] MEDS ORDERED: PT OWN MED DRAWER 7, Y5N ONE (10:43)
[2020-06-21] MEDS ORDERED: GLUCAGON 1 MG KIT IVPUSH ONE (11:30)
[2020-06-21] MEDS ORDERED: MIDAZOLAM HCL 2 MG/2 ML SINGLE DOSE VIAL IVPUSH ONE (11:45)
[2020-06-21] MEDS: ENOXAPARIN NA (PORCINE) 40 MG/0.4 ML DISP.SYRIN SQ SCH (12:30)
[2020-06-21] MEDS: ZINC SULFATE 220 MG CAPSULE (FP) PO SCH ×2 (12:30→22:43)
[2020-06-21] MEDS: NYSTATIN 100,000 UNIT/GM TOPICAL CREAM 15 GM TUBE TP SCH ×2 (12:30→22:40)
[2020-06-21] MEDS: DEXAMETHASONE SOD PHOSPHATE 4 MG/1 ML VIAL IVPUSH SCH (12:30)
[2020-06-21] MEDS: ASCORBIC ACID 500 MG TABLET (FP) PO SCH ×2 (12:30→22:39)
[2020-06-21] MEDS: MEGESTROL ACETATE 40 MG TABLET PO SCH (12:30)
[2020-06-21] MEDS: FAMOTIDINE 20 MG/50 ML IVPB 20 MG/50 ML MG IVPB SCH ×2 (12:30→22:43)
[2020-06-21] MEDS: CHOLECALCIFEROL (VIT D3) 1,000 UNIT (25 MCG) TABLET PO SCH (12:30)
[2020-06-21] MEDS: METOPROLOL TARTRATE 50 MG TABLET (FP) PO SCH ×2 (12:30→22:42)
[2020-06-21] MEDS: MULTIVIT INJ. ADULT COMBO WITH VIT K 1 COMBO 10 ML VIAL IV SCH (13:33)
[2020-06-21 15:46] LABS: BASO % 0.4 % (0-2.0); EOS % 0.9 % (0-4.5); HEMATOCRIT 31.1 % (32.4-45.2); HEMOGLOBIN 9.9 GM/dL (10.7-15.3); MCH 25.8 pg (25.7-33.7); MCHC 31.8 g/dl (32.0-36.0); MEAN CELL VOLUME 81.1 fl (80-96); MEAN PLT VOLUME 9.4 fl (7.5-11.1); MONO % 2.6 % (3.8-10.2); NEUT % 90.1 % (42.8-82.8); PLATELET COUNT 314 K/MM3 (134-434); RBC 3.84 M/mm3 (3.60-5.2); RDW 14.8 % (11.6-15.6); WHITE BLOOD COUNT 16.6 K/mm3 (4.0-10.0)
[2020-06-21 16:18] LABS: POTASSIUM 4.1 mmol/L (3.5-5.1)
[2020-06-21 16:20] LABS: ALBUMIN 2.3 g/dl (3.4-5.0); CALCIUM 8.4 mg/dL (8.5-10.1)
[2020-06-21 16:24] LABS: CREATININE 0.4 mg/dL (0.55-1.3)
[2020-06-21 16:25] LABS: BILIRUBIN,TOTAL 0.4 mg/dL (0.2-1); TOT PROT 6.3 g/dl (6.4-8.2)
[2020-06-21] MEDS: ATORVASTATIN CA 40 MG TABLET (FP) PO SCH (22:40)
[2020-06-21] MEDS: FAT EMUL/SOY/MCT/OLIV/FISH OIL 250 ML IV SCH (22:58)
[2020-06-22] MEDS: INSULIN SLIDING SCALE (NOVOLOG) 1 VIAL SQ SCH ×2 (07:46→13:23)
[2020-06-22 08:45] LABS: BASO % 1.1 % (0-2.0); EOS % 1.9 % (0-4.5); HEMATOCRIT 31.5 % (32.4-45.2); HEMOGLOBIN 9.9 GM/dL (10.7-15.3); LYMPH % 12.3 % (8-40); MCHC 31.5 g/dl (32.0-36.0); MEAN CELL VOLUME 82.6 fl (80-96); MEAN PLT VOLUME 9.7 fl (7.5-11.1); MONO % 6.2 % (3.8-10.2); NEUT % 78.5 % (42.8-82.8); PLATELET COUNT 308 K/MM3 (134-434); RBC 3.81 M/mm3 (3.60-5.2); RDW 14.9 % (11.6-15.6); WHITE BLOOD COUNT 14.2 K/mm3 (4.0-10.0)
[2020-06-22 09:06] LABS: POTASSIUM 4.2 mmol/L (3.5-5.1)
[2020-06-22 09:09] LABS: ALBUMIN 2.3 g/dl (3.4-5.0)
[2020-06-22 09:12] LABS: CREATININE 0.4 mg/dL (0.55-1.3)
[2020-06-22 09:14] LABS: TOT PROT 6.3 g/dl (6.4-8.2)
[2020-06-22] MEDS: FAMOTIDINE 20 MG/50 ML IVPB 20 MG/50 ML MG IVPB SCH ×2 (09:16→21:53)
[2020-06-22] MEDS: ENOXAPARIN NA (PORCINE) 40 MG/0.4 ML DISP.SYRIN SQ SCH ×2 (09:16→21:54)
[2020-06-22 09:17] LABS: BILIRUBIN,TOTAL 0.6 mg/dL (0.2-1)
[2020-06-22] MEDS: CHOLECALCIFEROL (VIT D3) 1,000 UNIT (25 MCG) TABLET PO SCH (09:17)
[2020-06-22] MEDS: DEXAMETHASONE SOD PHOSPHATE 4 MG/1 ML VIAL IVPUSH SCH (09:17)
[2020-06-22] MEDS: ASCORBIC ACID 500 MG TABLET (FP) PO SCH ×2 (09:17→23:39)
[2020-06-22] MEDS: ZINC SULFATE 220 MG CAPSULE (FP) PO SCH ×2 (09:19→23:38)
[2020-06-22] MEDS: MEGESTROL ACETATE 40 MG TABLET PO SCH (09:20)
[2020-06-22] MEDS: METOPROLOL TARTRATE 50 MG TABLET (FP) PO SCH ×2 (09:20→23:38)
[2020-06-22] MEDS: POTASSIUM CHLORIDE 60 MEQ in AMINO ACIDS 4.25%/D5W 1,000 ML IV SCH (09:20)
[2020-06-22] MEDS ORDERED: PT OWN MED DRAWER 7, Y5N ONE ×2 (09:23→14:58)
[2020-06-22] MEDS: NYSTATIN 100,000 UNIT/GM TOPICAL CREAM 15 GM TUBE TP SCH ×2 (13:22→21:54)
[2020-06-22] MEDS: MULTIVIT INJ. ADULT COMBO WITH VIT K 1 COMBO 10 ML VIAL IV SCH (13:23)
[2020-06-22 14:25] LABS: PH,URINE 5.5 (5.0-8.0); URINE APPEARANCE CLEAR; URINE BILIRUBIN NEGATIVE (NEGATIVE); URINE COLOR YELLOW; URINE GLUCOSE (UA) NEGATIVE (NEGATIVE); URINE KETONE NEGATIVE (NEGATIVE); URINE LEUK ESTERASE NEGATIVE (NEGATIVE); URINE NITRITE NEGATIVE (NEGATIVE); URINE PROTEIN TRACE (NEGATIVE); URINE UROBILINOGEN 0.2 mg/dL (0.2-1.0)
[2020-06-22] MEDS ORDERED: dilTIAZem HCL 50 MG/10 ML - 10 ML VIAL IVPUSH PRN ×2 (16:40→16:56)
[2020-06-22] MEDS ORDERED: LORazepam 2 MG/ML SDV VIAL IVPUSH PRN (16:40)
[2020-06-22] MEDS ORDERED: FAT EMUL/SOY/MCT/OLIV/FISH OIL 250 ML IV SCH (22:00)
[2020-06-22] MEDS ORDERED: ATORVASTATIN CA 40 MG TABLET (FP) PO SCH (22:00)
[2020-06-23] MEDS ORDERED: POTASSIUM CHLORIDE 60 MEQ in AMINO ACIDS 4.25%/D5W 1,000 ML IV SCH (02:32)
[2020-06-23] MEDS: INSULIN SLIDING SCALE (NOVOLOG) 1 VIAL SQ SCH ×3 (06:01→18:23)
[2020-06-23] MEDS ORDERED: CHOLECALCIFEROL (VIT D3) 1,000 UNIT (25 MCG) TABLET PO SCH (10:00)
[2020-06-23] MEDS ORDERED: MEGESTROL ACETATE 40 MG TABLET PO SCH (10:00)
[2020-06-23] MEDS ORDERED: DEXAMETHASONE SOD PHOSPHATE 4 MG/1 ML VIAL IVPUSH SCH (10:00)
[2020-06-23 10:58] LABS: BASO % 1.2 % (0-2.0); HEMATOCRIT 30.8 % (32.4-45.2); HEMOGLOBIN 9.9 GM/dL (10.7-15.3); LYMPH % 15.9 % (8-40); MCH 26.2 pg (25.7-33.7); MEAN PLT VOLUME 9.5 fl (7.5-11.1); MONO % 6.2 % (3.8-10.2); NEUT % 74.7 % (42.8-82.8); PLATELET COUNT 311 K/MM3 (134-434); RBC 3.76 M/mm3 (3.60-5.2); RDW 15.2 % (11.6-15.6); WHITE BLOOD COUNT 12.3 K/mm3 (4.0-10.0)
[2020-06-23 11:29] LABS: ALBUMIN 2.3 g/dl (3.4-5.0); CALCIUM 8.9 mg/dL (8.5-10.1); MAGNESIUM 1.8 mg/dL (1.8-2.4)
[2020-06-23 11:31] LABS: BLOOD UREA NITROGEN 19.5 mg/dL (7-18)
[2020-06-23 11:33] LABS: CREATININE 0.4 mg/dL (0.55-1.3)
[2020-06-23 11:34] LABS: BILIRUBIN,TOTAL 0.5 mg/dL (0.2-1)
[2020-06-23 11:35] LABS: TOT PROT 6.3 g/dl (6.4-8.2)
[2020-06-23 11:36] LABS: POTASSIUM 4.3 mmol/L (3.5-5.1)
[2020-06-23] MEDS: NYSTATIN 100,000 UNIT/GM TOPICAL CREAM 15 GM TUBE TP SCH ×2 (12:00→22:12)
[2020-06-23] MEDS ORDERED: MULTIVIT INJ. ADULT COMBO WITH VIT K 1 COMBO 10 ML VIAL IV SCH (13:00)
[2020-06-23] MEDS ORDERED: LORazepam 2 MG/ML SDV VIAL IM ONE ×2 (13:17→23:56)
[2020-06-23] MEDS ORDERED: PT OWN MED DRAWER 7, Y5N ONE ×2 (14:43→21:52)
[2020-06-23] MEDS: FAMOTIDINE 20 MG/50 ML IVPB 20 MG/50 ML MG IVPB SCH (15:32)
[2020-06-23] MEDS: ZINC SULFATE 220 MG CAPSULE (FP) PO SCH (15:32)
[2020-06-23] MEDS: METOPROLOL TARTRATE 50 MG TABLET (FP) PO SCH (15:32)
[2020-06-23] MEDS: ASCORBIC ACID 500 MG TABLET (FP) PO SCH (15:32)
[2020-06-23] MEDS: ENOXAPARIN NA (PORCINE) 40 MG/0.4 ML DISP.SYRIN SQ SCH (16:21)
[2020-06-23] MEDS ORDERED: CHOLECALCIFEROL (VIT D SOLUTION) 400 UNIT/1 ML DROPS GT SCH (20:11)
[2020-06-23] MEDS ORDERED: MEGESTROL ACETATE 400 MG/10 ML UNIT DOSE CUP PO SCH (20:12)
[2020-06-23] MEDS: APIXABAN 5 MG TABLET GT SCH (22:11)
[2020-06-23] MEDS: ATORVASTATIN CA 40 MG TABLET (FP) GT SCH (22:11)
[2020-06-23] MEDS: ASCORBIC ACID 500 MG/5 ML UNIT DOSE CUP GT SCH (22:12)
[2020-06-23] MEDS: METOPROLOL TARTRATE 50 MG TABLET (FP) GT SCH (22:12)
[2020-06-23] MEDS: ZINC SULFATE 220 MG CAPSULE (FP) GT SCH (23:19)
[2020-06-24] MEDS: INSULIN SLIDING SCALE (NOVOLOG) 1 VIAL SQ SCH ×3 (06:24→16:47)
[2020-06-24 09:21] LABS: BASO % 0.6 % (0-2.0); EOS % 1.9 % (0-4.5); HEMATOCRIT 30.7 % (32.4-45.2); LYMPH % 14.5 % (8-40); MCH 26.5 pg (25.7-33.7); MCHC 32.7 g/dl (32.0-36.0); MEAN CELL VOLUME 80.8 fl (80-96); MEAN PLT VOLUME 9.4 fl (7.5-11.1); MONO % 6.4 % (3.8-10.2); NEUT % 76.6 % (42.8-82.8); PLATELET COUNT 315 K/MM3 (134-434); RDW 15.2 % (11.6-15.6); WHITE BLOOD COUNT 11.8 K/mm3 (4.0-10.0)
[2020-06-24 09:54] LABS: POTASSIUM 4.3 mmol/L (3.5-5.1)
[2020-06-24] MEDS ORDERED: PT OWN MED DRAWER 7, Y5N ONE ×2 (09:55→22:02)
[2020-06-24 10:05] LABS: ALBUMIN 2.2 g/dl (3.4-5.0); BILIRUBIN,TOTAL 0.4 mg/dL (0.2-1); BLOOD UREA NITROGEN 22.8 mg/dL (7-18); CALCIUM 9.1 mg/dL (8.5-10.1); MAGNESIUM 1.9 mg/dL (1.8-2.4); TOT PROT 6.1 g/dl (6.4-8.2)
[2020-06-24 10:07] LABS: CREATININE 0.5 mg/dL (0.55-1.3)
[2020-06-24] MEDS: ZINC SULFATE 220 MG CAPSULE (FP) GT SCH ×2 (10:08→22:09)
[2020-06-24] MEDS: APIXABAN 5 MG TABLET GT SCH ×2 (10:08→22:09)
[2020-06-24] MEDS: METOPROLOL TARTRATE 50 MG TABLET (FP) GT SCH ×2 (10:09→22:09)
[2020-06-24] MEDS: DEXAMETHASONE 4 MG TABLET (FP) PEG SCH (10:09)
[2020-06-24] MEDS: CHOLECALCIFEROL (VIT D SOLUTION) 400 UNIT/1 ML DROPS GT SCH (10:09)
[2020-06-24] MEDS: FAMOTIDINE 40 MG/5 ML ORAL SUSPENSION PEG SCH (10:10)
[2020-06-24] MEDS: MEGESTROL ACETATE 400 MG/10 ML UNIT DOSE CUP GT SCH (10:10)
[2020-06-24] MEDS: ASCORBIC ACID 500 MG/5 ML UNIT DOSE CUP GT SCH ×2 (10:10→22:37)
[2020-06-24] MEDS: NYSTATIN 100,000 UNIT/GM TOPICAL CREAM 15 GM TUBE TP SCH ×2 (10:10→22:37)
[2020-06-24] MEDS: LORazepam 1 MG TABLET PEG PRN (18:52)
[2020-06-24] MEDS: ATORVASTATIN CA 40 MG TABLET (FP) GT SCH (22:09)
[2020-06-25] MEDS: LORazepam 1 MG TABLET PEG PRN (05:25)
[2020-06-25] MEDS: INSULIN SLIDING SCALE (NOVOLOG) 1 VIAL SQ SCH ×3 (06:01→16:52)
[2020-06-25 07:46] LABS: BASO % 0.6 % (0-2.0); EOS % 1.1 % (0-4.5); HEMATOCRIT 28.3 % (32.4-45.2); HEMOGLOBIN 9.3 GM/dL (10.7-15.3); LYMPH % 17.9 % (8-40); MCH 26.6 pg (25.7-33.7); MCHC 32.7 g/dl (32.0-36.0); MEAN CELL VOLUME 81.3 fl (80-96); MEAN PLT VOLUME 9.5 fl (7.5-11.1); MONO % 6.5 % (3.8-10.2); NEUT % 73.9 % (42.8-82.8); PLATELET COUNT 308 K/MM3 (134-434); RBC 3.48 M/mm3 (3.60-5.2); RDW 15.4 % (11.6-15.6); WHITE BLOOD COUNT 12.5 K/mm3 (4.0-10.0)
[2020-06-25 08:16] LABS: POTASSIUM 4.1 mmol/L (3.5-5.1)
[2020-06-25 08:23] LABS: ALBUMIN 2.1 g/dl (3.4-5.0); BLOOD UREA NITROGEN 27.1 mg/dL (7-18); CALCIUM 9.3 mg/dL (8.5-10.1)
[2020-06-25 08:24] LABS: MAGNESIUM 1.9 mg/dL (1.8-2.4)
[2020-06-25 08:27] LABS: BILIRUBIN,TOTAL 0.3 mg/dL (0.2-1); CREATININE 0.4 mg/dL (0.55-1.3); TOT PROT 5.7 g/dl (6.4-8.2)
[2020-06-25] MEDS ORDERED: PT OWN MED DRAWER 7, Y5N ONE ×2 (09:18→21:48)
[2020-06-25] MEDS: DEXAMETHASONE 4 MG TABLET (FP) PEG SCH (10:23)
[2020-06-25] MEDS: ZINC SULFATE 220 MG CAPSULE (FP) GT SCH ×2 (10:24→22:04)
[2020-06-25] MEDS: APIXABAN 5 MG TABLET GT SCH ×2 (10:24→22:03)
[2020-06-25] MEDS: METOPROLOL TARTRATE 50 MG TABLET (FP) GT SCH ×2 (10:24→22:04)
[2020-06-25] MEDS: ASCORBIC ACID 500 MG/5 ML UNIT DOSE CUP GT SCH ×2 (10:25→22:04)
[2020-06-25] MEDS: CHOLECALCIFEROL (VIT D SOLUTION) 400 UNIT/1 ML DROPS GT SCH (10:25)
[2020-06-25] MEDS: FAMOTIDINE 40 MG/5 ML ORAL SUSPENSION PEG SCH (10:25)
[2020-06-25] MEDS: MEGESTROL ACETATE 400 MG/10 ML UNIT DOSE CUP GT SCH (10:25)
[2020-06-25] MEDS: NYSTATIN 100,000 UNIT/GM TOPICAL CREAM 15 GM TUBE TP SCH ×2 (10:26→22:04)
[2020-06-25] MEDS: ATORVASTATIN CA 40 MG TABLET (FP) GT SCH (22:03)
[2020-06-26] MEDS: INSULIN SLIDING SCALE (NOVOLOG) 1 VIAL SQ SCH ×3 (06:21→16:46)
[2020-06-26] MEDS ORDERED: PT OWN MED DRAWER 7, Y5N ONE ×2 (10:11→21:33)
[2020-06-26] MEDS: ZINC SULFATE 220 MG CAPSULE (FP) GT SCH ×2 (11:07→21:36)
[2020-06-26] MEDS: DEXAMETHASONE 4 MG TABLET (FP) PEG SCH (11:08)
[2020-06-26] MEDS: METOPROLOL TARTRATE 50 MG TABLET (FP) GT SCH ×2 (11:08→21:36)
[2020-06-26] MEDS: APIXABAN 5 MG TABLET GT SCH ×2 (11:08→21:36)
[2020-06-26] MEDS: ASCORBIC ACID 500 MG/5 ML UNIT DOSE CUP GT SCH ×2 (11:08→21:36)
[2020-06-26] MEDS: MEGESTROL ACETATE 400 MG/10 ML UNIT DOSE CUP GT SCH (11:09)
[2020-06-26] MEDS: NYSTATIN 100,000 UNIT/GM TOPICAL CREAM 15 GM TUBE TP SCH ×2 (11:10→21:37)
[2020-06-26] MEDS: CHOLECALCIFEROL (VIT D SOLUTION) 400 UNIT/1 ML DROPS GT SCH (11:10)
[2020-06-26] MEDS: FAMOTIDINE 40 MG/5 ML ORAL SUSPENSION PEG SCH (11:11)
[2020-06-26 11:40] LABS: BASO % 0.7 % (0-2.0); EOS % 0.9 % (0-4.5); HEMATOCRIT 29.7 % (32.4-45.2); HEMOGLOBIN 9.5 GM/dL (10.7-15.3); LYMPH % 12.6 % (8-40); MCH 26.2 pg (25.7-33.7); MCHC 32.1 g/dl (32.0-36.0); MEAN CELL VOLUME 81.7 fl (80-96); MEAN PLT VOLUME 9.6 fl (7.5-11.1); MONO % 5.6 % (3.8-10.2); NEUT % 80.2 % (42.8-82.8); PLATELET COUNT 324 K/MM3 (134-434); RBC 3.63 M/mm3 (3.60-5.2); RDW 15.3 % (11.6-15.6); WHITE BLOOD COUNT 15.8 K/mm3 (4.0-10.0)
[2020-06-26 12:03] LABS: POTASSIUM 4.4 mmol/L (3.5-5.1)
[2020-06-26 12:06] LABS: ALBUMIN 2.2 g/dl (3.4-5.0); CALCIUM 9.5 mg/dL (8.5-10.1); MAGNESIUM 2.1 mg/dL (1.8-2.4)
[2020-06-26 12:10] LABS: CREATININE 0.5 mg/dL (0.55-1.3)
[2020-06-26 12:12] LABS: BILIRUBIN,TOTAL 0.3 mg/dL (0.2-1); TOT PROT 5.9 g/dl (6.4-8.2)
[2020-06-26 14:37] LABS: ANISOCYTOSIS 1+; MACROCYTOSIS 0; OVALOCYTE 1+; PLATELET ESTIMATE NORMAL
[2020-06-26] MEDS: LORazepam 1 MG TABLET PEG PRN ×2 (16:51→21:36)
[2020-06-26] MEDS: ATORVASTATIN CA 40 MG TABLET (FP) GT SCH (21:36)
[2020-06-27] MEDS: LORazepam 1 MG TABLET PEG PRN (06:55)
[2020-06-27] MEDS: INSULIN SLIDING SCALE (NOVOLOG) 1 VIAL SQ SCH ×3 (07:02→16:30)
[2020-06-27 09:17] LABS: BASO % 0.8 % (0-2.0); EOS % 0.6 % (0-4.5); HEMATOCRIT 25.6 % (32.4-45.2); HEMOGLOBIN 8.5 GM/dL (10.7-15.3); LYMPH % 19.8 % (8-40); MCH 26.8 pg (25.7-33.7); MCHC 33.1 g/dl (32.0-36.0); MEAN CELL VOLUME 81.1 fl (80-96); MEAN PLT VOLUME 9.3 fl (7.5-11.1); MONO % 6.9 % (3.8-10.2); NEUT % 71.9 % (42.8-82.8); PLATELET COUNT 312 K/MM3 (134-434); RBC 3.15 M/mm3 (3.60-5.2); RDW 15.8 % (11.6-15.6); WHITE BLOOD COUNT 14.5 K/mm3 (4.0-10.0)
[2020-06-27 09:25] LABS: CALCIUM 9.1 mg/dL (8.5-10.1)
[2020-06-27 09:26] LABS: ALBUMIN 2.1 g/dl (3.4-5.0); BLOOD UREA NITROGEN 25.7 mg/dL (7-18); MAGNESIUM 2.4 mg/dL (1.8-2.4)
[2020-06-27 09:29] LABS: CREATININE 0.5 mg/dL (0.55-1.3)
[2020-06-27 09:30] LABS: BILIRUBIN,TOTAL 0.3 mg/dL (0.2-1)
[2020-06-27 09:31] LABS: TOT PROT 5.4 g/dl (6.4-8.2)
[2020-06-27] MEDS: MEGESTROL ACETATE 400 MG/10 ML UNIT DOSE CUP GT SCH (10:53)
[2020-06-27] MEDS: ZINC SULFATE 220 MG CAPSULE (FP) GT SCH ×2 (10:53→21:39)
[2020-06-27] MEDS: DEXAMETHASONE 4 MG TABLET (FP) PEG SCH (10:53)
[2020-06-27] MEDS: METOPROLOL TARTRATE 50 MG TABLET (FP) GT SCH ×2 (10:53→21:39)
[2020-06-27] MEDS: APIXABAN 5 MG TABLET GT SCH ×2 (10:53→21:39)
[2020-06-27] MEDS: FAMOTIDINE 40 MG/5 ML ORAL SUSPENSION PEG SCH (10:54)
[2020-06-27] MEDS: CHOLECALCIFEROL (VIT D SOLUTION) 400 UNIT/1 ML DROPS GT SCH (10:54)
[2020-06-27] MEDS: ASCORBIC ACID 500 MG/5 ML UNIT DOSE CUP GT SCH ×2 (10:56→21:39)
[2020-06-27] MEDS: NYSTATIN 100,000 UNIT/GM TOPICAL CREAM 15 GM TUBE TP SCH ×2 (11:06→21:47)
[2020-06-27] MEDS: ATORVASTATIN CA 40 MG TABLET (FP) GT SCH (21:39)
[2020-06-28] MEDS: INSULIN SLIDING SCALE (NOVOLOG) 1 VIAL SQ SCH ×2 (06:17→10:59)
[2020-06-28] MEDS ORDERED: PT OWN MED DRAWER 7, Y5N ONE ×2 (06:23→10:12)
[2020-06-28 09:42] LABS: BASO % 0.4 % (0-2.0); EOS % 0.3 % (0-4.5); HEMATOCRIT 24.9 % (32.4-45.2); HEMOGLOBIN 7.9 GM/dL (10.7-15.3); LYMPH % 19.1 % (8-40); MCH 26.4 pg (25.7-33.7); MCHC 31.9 g/dl (32.0-36.0); MEAN CELL VOLUME 82.9 fl (80-96); MEAN PLT VOLUME 9.2 fl (7.5-11.1); MONO % 7.7 % (3.8-10.2); NEUT % 72.5 % (42.8-82.8); PLATELET COUNT 320 K/MM3 (134-434); RBC 3.01 M/mm3 (3.60-5.2); RDW 15.7 % (11.6-15.6); WHITE BLOOD COUNT 14.9 K/mm3 (4.0-10.0)
[2020-06-28 10:00] LABS: CHLORIDE 102 mmol/L (98-107); SODIUM 141 mmol/L (136-145)
[2020-06-28 10:03] LABS: CALCIUM 9.2 mg/dL (8.5-10.1)
[2020-06-28 10:04] LABS: ALBUMIN 2.2 g/dl (3.4-5.0); ANION GAP 5 MMOL/L (8-16); BLOOD UREA NITROGEN 21.2 mg/dL (7-18); CO2 34 mmol/L (21-32); GLUCOSE,RANDOM 122 mg/dL (74-106); MAGNESIUM 2.5 mg/dL (1.8-2.4)
[2020-06-28 10:07] LABS: CREATININE 0.5 mg/dL (0.55-1.3); SGOT/AST 32 U/L (15-37); SGPT/ALT 89 U/L (13-61)
[2020-06-28 10:08] LABS: BILIRUBIN,TOTAL 0.3 mg/dL (0.2-1); TOT PROT 5.4 g/dl (6.4-8.2)
[2020-06-28 10:09] LABS: ALK PHOS 91 U/L (45-117)
[2020-06-28] MEDS: CHOLECALCIFEROL (VIT D SOLUTION) 400 UNIT/1 ML DROPS GT SCH (10:34)
[2020-06-28] MEDS: ASCORBIC ACID 500 MG/5 ML UNIT DOSE CUP GT SCH (10:34)
[2020-06-28] MEDS: FAMOTIDINE 40 MG/5 ML ORAL SUSPENSION PEG SCH (10:34)
[2020-06-28] MEDS: DEXAMETHASONE 4 MG TABLET (FP) PEG SCH (10:35)
[2020-06-28] MEDS: APIXABAN 5 MG TABLET GT SCH (10:35)
[2020-06-28] MEDS: METOPROLOL TARTRATE 50 MG TABLET (FP) GT SCH (10:35)
[2020-06-28] MEDS: ZINC SULFATE 220 MG CAPSULE (FP) GT SCH (10:35)
[2020-06-28] MEDS: NYSTATIN 100,000 UNIT/GM TOPICAL CREAM 15 GM TUBE TP SCH (10:36)
[2020-06-28] MEDS: MEGESTROL ACETATE 400 MG/10 ML UNIT DOSE CUP GT SCH (10:36)
[2020-06-28] MEDS ORDERED: LORazepam 2 MG/ML SDV VIAL IM ONE (11:11)
[2020-06-28] MEDS ORDERED: DEXAMETHASONE 0.5 MG TABLET PEG SCH (11:13)
[2020-06-28 15:42] VITALS: BP 120/57; PULSE 97; TEMP 97.6
== END 2020-06-28 15:49 | DRG 710 ==
LOC: JER 19:51 → JERBED 22:38 → JICU 05-28 02:52 → J4W 06-10 22:17 → J5S 06-22 15:46
PROVIDERS: ADMIT Internal Medicine Pulmonary Disease; ATTEND Nurse Practitioner Acute Care
PROC: 0CHY7BZ Insertion of Airway into Mouth and Throat, Via Natural or Artificial Opening (ICD-10-PCS; principal; 2020-05-28)
PROC: 5A1955Z Respiratory Ventilation, Greater than 96 Consecutive Hours (ICD-10-PCS; 2020-05-28)
PROC: 05HM33Z Insertion of Infusion Device into Right Internal Jugular Vein, Percutaneous Approach (ICD-10-PCS; 2020-05-28)
PROC: 0DH673Z Insertion of Infusion Device into Stomach, Via Natural or Artificial Opening (ICD-10-PCS; 2020-05-28)
PROC: XW033E5 Introduction of Remdesivir Anti-infective into Peripheral Vein, Percutaneous Approach, New Technology Group 5 (ICD-10-PCS; 2020-05-28)
PROC: 0DH63UZ Insertion of Feeding Device into Stomach, Percutaneous Approach (ICD-10-PCS; 2020-06-21)
PROC: 3E0G76Z Introduction of Nutritional Substance into Upper GI, Via Natural or Artificial Opening (ICD-10-PCS; 2020-06-21)
DX: A41.89 Other specified sepsis (principal); U07.1 COVID-19; J12.82 Pneumonia due to coronavirus disease 2019; I10 Essential (primary) hypertension; E78.5 Hyperlipidemia, unspecified; G56.00 Carpal tunnel syndrome, unspecified upper limb; K44.9 Diaphragmatic hernia without obstruction or gangrene; J80 Acute respiratory distress syndrome; D64.9 Anemia, unspecified; G43.909 Migraine, unspecified, not intractable, without status migrainosus; E87.2 Acidosis; E87.6 Hypokalemia; E83.39 Other disorders of phosphorus metabolism; R65.21 Severe sepsis with septic shock; D69.6 Thrombocytopenia, unspecified; E87.1 Hypo-osmolality and hyponatremia; Z86.711 Personal history of pulmonary embolism; G93.41 Metabolic encephalopathy; E46 Unspecified protein-calorie malnutrition; Z68.26 Body mass index [BMI] 26.0-26.9, adult; D72.829 Elevated white blood cell count, unspecified
CPT/HCPCS: 31500; 36415; 36600; 49440; 71045-TC-FY; 74018-TC-FY; 80048; 80053; 80076; 81003; 82248; 82550; 82553; 82728; 82803; 82962; 83605; 83615; 83735; 84100; 84484; 85025; 85027; 85379; 85610; 85730; 86140; 86850; 86900; 86901; 87040; 87086; 87899; 93005; 93010; 94002; 97161-GP; 99285-25; C9399; C9803; J1100; J8999; U0003; U0005

== ENCOUNTER 2021-09-14 11:56 | Inpatient (IN) | payer OTHER ==
[2021-09-14] MEDS ORDERED: ACETAMINOPHEN 1000 MG/100 ML BAG IVPB ONE (13:00)
[2021-09-14] MEDS ORDERED: diazePAM 5 MG TABLET PO ONE (13:01)
[2021-09-14] MEDS ORDERED: ACETAMINOPHEN INJECTION 100 ML IVPB ONE (13:15)
[2021-09-14] MEDS ORDERED: diazePAM 5 MG TABLET ONE (13:15)
[2021-09-14 13:35] LABS: BASO % 0.5 % (0-2.0); EOS % 0.7 % (0-4.5); HEMATOCRIT 40.7 % (32.4-45.2); HEMOGLOBIN 13.2 GM/dL (10.7-15.3); LYMPH % 17.7 % (8-40); MCH 26.7 pg (25.7-33.7); MCHC 32.4 g/dl (32.0-36.0); MEAN CELL VOLUME 82.5 fl (80-96); MEAN PLT VOLUME 7.9 fl (7.5-11.1); MONO % 9.1 % (3.8-10.2); PLATELET COUNT 256 10^3/uL (134-434); RBC 4.94 M/mm3 (3.60-5.2); RDW 13.8 % (11.6-15.6); WHITE BLOOD COUNT 10.2 K/mm3 (4.0-10.0)
[2021-09-14 13:39] LABS: CHLORIDE 109 mmol/L (98-107); SODIUM 143 mmol/L (136-145)
[2021-09-14 13:41] LABS: CALCIUM 9.1 mg/dL (8.5-10.1)
[2021-09-14 13:42] LABS: ALBUMIN 3.3 g/dl (3.4-5.0); BLOOD UREA NITROGEN 13.1 mg/dL (7-18); CO2 27 mmol/L (21-32); GLUCOSE,RANDOM 151 mg/dL (74-106)
[2021-09-14 13:45] LABS: CREATININE 0.9 mg/dL (0.55-1.3); SGOT/AST 220 U/L (15-37); SGPT/ALT 232 U/L (13-61)
[2021-09-14 13:47] LABS: BILIRUBIN,TOTAL 0.6 mg/dL (0.2-1); TOT PROT 7.6 g/dl (6.4-8.2)
[2021-09-14 13:48] LABS: ALK PHOS 137 U/L (45-117); INR 0.99 (0.83-1.09); PROTHROMBIN TIME (PATIENT) 11.4 SEC (9.7-13.0)
[2021-09-14 13:51] LABS: ACTIVATED PTT 28.3 SECONDS (25.2-36.5)
[2021-09-14 14:13] LABS: ANION GAP 7 MMOL/L (8-16)
[2021-09-14 15:31] LABS: CALCIUM 8.7 mg/dL (8.5-10.1)
[2021-09-14 15:32] LABS: ALBUMIN 2.8 g/dl (3.4-5.0); BLOOD UREA NITROGEN 12.8 mg/dL (7-18)
[2021-09-14 15:35] LABS: CREATININE 0.8 mg/dL (0.55-1.3)
[2021-09-14 15:36] LABS: TOT PROT 6.7 g/dl (6.4-8.2)
[2021-09-14 15:37] LABS: BILIRUBIN,TOTAL 0.4 mg/dL (0.2-1)
[2021-09-14] MEDS ORDERED: LIDOCAINE 5% TOPICAL PATCH TP ONE (15:56)
[2021-09-14] MEDS ORDERED: POTASSIUM CHLORIDE TABS 20 MEQ TABLET.ER (FP) PO ONE ×2 (16:39→18:43)
[2021-09-14] MEDS: KCL 10 MEQ IVPB 10 MEQ/100 ML INFUS.BAG IVPB SCH ×3 (17:15→18:44)
[2021-09-14] MEDS ORDERED: KETOROLAC TROMETHAMINE 15 MG/ML VIAL IVPUSH ONE (17:26)
[2021-09-14] MEDS ORDERED: KETOROLAC TROMETHAMINE 15 MG/ML VIAL ONE (18:27)
[2021-09-14] MEDS ORDERED: LIDOCAINE 5% TOPICAL PATCH ONE (18:27)
[2021-09-14] MEDS ORDERED: KCL 10 MEQ IVPB 10 MEQ/100 ML INFUS.BAG IVPB ONE (18:27)
[2021-09-14] MEDS ORDERED: ACETAMINOPHEN 325 MG TABLET (FP) PO PRN (19:05)
[2021-09-14] MEDS ORDERED: CEFTRIAXONE 1 GM/50 ML BAG ONE (20:17)
[2021-09-14] MEDS: CEFTRIAXONE 1 GM in DEXTROSE 5%-WATER - 50 ML IVPB SCH (20:23)
[2021-09-14 22:20] LABS: CHLORIDE 121 mmol/L (98-107); SODIUM 147 mmol/L (136-145)
[2021-09-14 22:23] LABS: BLOOD UREA NITROGEN 9.1 mg/dL (7-18); CO2 22 mmol/L (21-32); GLUCOSE,RANDOM 154 mg/dL (74-106)
[2021-09-14 22:26] LABS: CREATININE 0.6 mg/dL (0.55-1.3); SGOT/AST 144 U/L (15-37); SGPT/ALT 167 U/L (13-61)
[2021-09-14 22:27] LABS: BILIRUBIN,TOTAL 0.3 mg/dL (0.2-1); TOT PROT 5.2 g/dl (6.4-8.2)
[2021-09-14 22:29] LABS: ALK PHOS 95 U/L (45-117)
[2021-09-14 22:31] LABS: ALBUMIN 2.2 g/dl (3.4-5.0); ANION GAP 4 MMOL/L (8-16); CALCIUM 6.8 mg/dL (8.5-10.1)
[2021-09-14] MEDS ORDERED: MAGNESIUM SULF 50% (8.12 MEQ/2 ML-1 GM VIAL) IVPB ONE (22:43)
[2021-09-15] MEDS ORDERED: ATORVASTATIN CA 40 MG TABLET (FP) ONE (01:03)
[2021-09-15] MEDS ORDERED: MAGNESIUM SULFATE IN WATER 2 GM/50 ML IVPB IVPB ONE (01:03)
[2021-09-15] MEDS: ATORVASTATIN CA 40 MG TABLET (FP) PO SCH ×2 (01:08→21:43)
[2021-09-15] MEDS: LIDOCAINE PATCH REMOVAL MC SCH ×2 (01:09→22:36)
[2021-09-15] MEDS ORDERED: diazePAM 5 MG TABLET PO ONE (01:18)
[2021-09-15] MEDS ORDERED: diazePAM 5 MG TABLET ONE (01:27)
[2021-09-15] MEDS ORDERED: KCL 10 MEQ IVPB 10 MEQ/100 ML INFUS.BAG IVPB ONE ×3 (01:27→05:01)
[2021-09-15] MEDS: KCL 10 MEQ IVPB 10 MEQ/100 ML INFUS.BAG IVPB SCH ×6 (01:44→15:40)
[2021-09-15] MEDS ORDERED: amLODIPine BESYLATE 5 MG TABLET (FP) ONE (09:05)
[2021-09-15] MEDS ORDERED: FERROUS SO4 325 MG TABLET (FP) ONE (09:05)
[2021-09-15] MEDS ORDERED: cefTRIAXone SODIUM 1 GM VIAL ONE (09:05)
[2021-09-15] MEDS ORDERED: FUROSEMIDE 40 MG/4 ML INJECTABLE VIAL ONE (09:05)
[2021-09-15] MEDS ORDERED: ENOXAPARIN NA (PORCINE) 40 MG/0.4 ML DISP.SYRIN SQ ONE (09:05)
[2021-09-15] MEDS: ENOXAPARIN NA (PORCINE) 40 MG/0.4 ML DISP.SYRIN SQ SCH (09:15)
[2021-09-15] MEDS: CEFTRIAXONE 1 GM in DEXTROSE 5%-WATER - 50 ML IVPB SCH (09:15)
[2021-09-15] MEDS ORDERED: AZITHROMYCIN IVPB 500 MG/250 ML BAG IVPB SCH (10:00)
[2021-09-15] MEDS ORDERED: FUROSEMIDE 40 MG/4 ML INJECTABLE VIAL IVPUSH SCH (10:00)
[2021-09-15] MEDS: TRIAMTERENE AND HCTZ - 37.5 MG/25 MG CAPSULE PO SCH (11:22)
[2021-09-15] MEDS: FERROUS SO4 325 MG TABLET (FP) PO SCH (11:22)
[2021-09-15] MEDS: amLODIPine BESYLATE 5 MG TABLET (FP) PO SCH (11:22)
[2021-09-15] MEDS: OXYBUTYNIN CHLORIDE 5 MG TABLET PO SCH (11:22)
[2021-09-15] MEDS: TOPIRAMATE 25 MG TABLET PO SCH (11:23)
[2021-09-15] MEDS ORDERED: KCL 10 MEQ IVPB 30 MEQ/300 ML INFUS.BAG IVPB ONE (11:24)
[2021-09-15] MEDS ORDERED: AZITHROMYCIN IVPB 500 MG/250 ML BAG IVPB ONE (11:33)
[2021-09-15] MEDS ORDERED: PANTOPRAZOLE 40 MG TABLET PO SCH (16:30)
[2021-09-15 19:10] VITALS: BMI 28.5
[2021-09-15 20:31] LABS: BLOOD UREA NITROGEN 20.7 mg/dL (7-18); MAGNESIUM 2.2 mg/dL (1.8-2.4)
[2021-09-15 20:33] LABS: PHOSPHOROUS 2.2 mg/dL (2.5-4.9)
[2021-09-15 20:34] LABS: CREATININE 1.1 mg/dL (0.55-1.3)
[2021-09-15 20:35] LABS: BILIRUBIN,TOTAL 0.3 mg/dL (0.2-1)
[2021-09-15 20:37] LABS: CALCIUM 8.8 mg/dL (8.5-10.1); TOT PROT 7.3 g/dl (6.4-8.2)
[2021-09-15] MEDS ORDERED: POTASSIUM CHLORIDE TABS 20 MEQ TABLET.ER (FP) PO ONE (22:00)
[2021-09-16] MEDS ORDERED: NAPH,MB-DB/K PH,MBDB POWDER PACKET PO ONE (05:23)
[2021-09-16 08:16] LABS: BASO % 0.9 % (0-2.0); EOS % 3.4 % (0-4.5); HEMATOCRIT 38.2 % (32.4-45.2); HEMOGLOBIN 12.5 GM/dL (10.7-15.3); LYMPH % 18.8 % (8-40); MCHC 32.7 g/dl (32.0-36.0); MEAN CELL VOLUME 82.5 fl (80-96); MEAN PLT VOLUME 8.4 fl (7.5-11.1); MONO % 8.4 % (3.8-10.2); NEUT % 68.5 % (42.8-82.8); PLATELET COUNT 240 10^3/uL (134-434); RBC 4.63 M/mm3 (3.60-5.2); RDW 13.8 % (11.6-15.6); WHITE BLOOD COUNT 9.2 K/mm3 (4.0-10.0)
[2021-09-16 08:42] LABS: ALBUMIN 2.9 g/dl (3.4-5.0); BLOOD UREA NITROGEN 25.1 mg/dL (7-18); MAGNESIUM 2.3 mg/dL (1.8-2.4)
[2021-09-16 08:45] LABS: CREATININE 0.9 mg/dL (0.55-1.3)
[2021-09-16 08:46] LABS: BILIRUBIN,TOTAL 0.4 mg/dL (0.2-1)
[2021-09-16] MEDS ORDERED: ACETAMINOPHEN 325 MG TABLET (FP) PO PRN (09:00)
[2021-09-16] MEDS: oxyCODONE HCL 5 MG TABLET PO PRN (09:13)
[2021-09-16] MEDS: amLODIPine BESYLATE 5 MG TABLET (FP) PO SCH (09:14)
[2021-09-16] MEDS: OXYBUTYNIN CHLORIDE 5 MG TABLET PO SCH (09:14)
[2021-09-16] MEDS: TOPIRAMATE 25 MG TABLET PO SCH (09:14)
[2021-09-16] MEDS: FERROUS SO4 325 MG TABLET (FP) PO SCH (09:15)
[2021-09-16] MEDS: ENOXAPARIN NA (PORCINE) 40 MG/0.4 ML DISP.SYRIN SQ SCH (09:15)
[2021-09-16] MEDS: TRIAMTERENE AND HCTZ - 37.5 MG/25 MG CAPSULE PO SCH (12:37)
[2021-09-16] MEDS: FUROSEMIDE 40 MG TABLET (FP) PO SCH (12:37)
[2021-09-16] MEDS: PANTOPRAZOLE 40 MG TABLET PO SCH (12:38)
[2021-09-16] MEDS: LIDOCAINE PATCH REMOVAL MC SCH (21:33)
[2021-09-16] MEDS: ATORVASTATIN CA 40 MG TABLET (FP) PO SCH (21:33)
[2021-09-17] MEDS: oxyCODONE HCL 5 MG TABLET PO PRN ×2 (02:04→08:18)
[2021-09-17] MEDS: PANTOPRAZOLE 40 MG TABLET PO SCH ×2 (07:09→11:19)
[2021-09-17 10:26] LABS: CALCIUM 9.8 mg/dL (8.5-10.1)
[2021-09-17 10:27] LABS: ALBUMIN 3.1 g/dl (3.4-5.0); BLOOD UREA NITROGEN 28.6 mg/dL (7-18)
[2021-09-17 10:29] LABS: CREATININE 1.1 mg/dL (0.55-1.3)
[2021-09-17 10:31] LABS: BILIRUBIN,TOTAL 0.5 mg/dL (0.2-1)
[2021-09-17 10:33] LABS: TOT PROT 7.8 g/dl (6.4-8.2)
[2021-09-17] MEDS: TOPIRAMATE 25 MG TABLET PO SCH (10:33)
[2021-09-17] MEDS: FUROSEMIDE 40 MG TABLET (FP) PO SCH (10:33)
[2021-09-17] MEDS: amLODIPine BESYLATE 5 MG TABLET (FP) PO SCH (10:33)
[2021-09-17] MEDS: OXYBUTYNIN CHLORIDE 5 MG TABLET PO SCH (10:34)
[2021-09-17] MEDS: FERROUS SO4 325 MG TABLET (FP) PO SCH (10:34)
[2021-09-17] MEDS: ENOXAPARIN NA (PORCINE) 40 MG/0.4 ML DISP.SYRIN SQ SCH (10:35)
[2021-09-17] MEDS: TRIAMTERENE AND HCTZ - 37.5 MG/25 MG CAPSULE PO SCH (10:46)
[2021-09-17 13:32] LABS: INR 1.01 (0.83-1.09); PROTHROMBIN TIME (PATIENT) 11.6 SEC (9.7-13.0)
[2021-09-17] MEDS: CELECOXIB 100 MG CAPSULE PO SCH (21:25)
[2021-09-17] MEDS: LIDOCAINE PATCH REMOVAL MC SCH (21:29)
[2021-09-18] MEDS: PANTOPRAZOLE 40 MG TABLET PO SCH (07:56)
[2021-09-18] MEDS ORDERED: PANTOPRAZOLE 40 MG TABLET PO SCH ×2 (07:58→08:00)
[2021-09-18 08:52] LABS: BASO % 0.7 % (0-2.0); EOS % 2.8 % (0-4.5); HEMATOCRIT 36.6 % (32.4-45.2); HEMOGLOBIN 12.1 GM/dL (10.7-15.3); LYMPH % 26.4 % (8-40); MEAN CELL VOLUME 81.7 fl (80-96); MEAN PLT VOLUME 8.6 fl (7.5-11.1); MONO % 8.9 % (3.8-10.2); NEUT % 61.2 % (42.8-82.8); PLATELET COUNT 250 10^3/uL (134-434); RBC 4.48 M/mm3 (3.60-5.2); RDW 13.5 % (11.6-15.6); WHITE BLOOD COUNT 7.6 K/mm3 (4.0-10.0)
[2021-09-18 09:13] LABS: CALCIUM 9.4 mg/dL (8.5-10.1)
[2021-09-18 09:14] LABS: BLOOD UREA NITROGEN 33.4 mg/dL (7-18)
[2021-09-18 09:17] LABS: CREATININE 1.1 mg/dL (0.55-1.3)
[2021-09-18 09:18] LABS: BILIRUBIN,TOTAL 0.9 mg/dL (0.2-1); TOT PROT 7.1 g/dl (6.4-8.2)
[2021-09-18] MEDS ORDERED: GABAPENTIN 100 MG CAPSULE PO SCH (10:00)
[2021-09-18] MEDS: TRIAMTERENE AND HCTZ - 37.5 MG/25 MG CAPSULE PO SCH (10:20)
[2021-09-18] MEDS: CELECOXIB 100 MG CAPSULE PO SCH (10:20)
[2021-09-18] MEDS: OXYBUTYNIN CHLORIDE 5 MG TABLET PO SCH (10:20)
[2021-09-18] MEDS: ENOXAPARIN NA (PORCINE) 40 MG/0.4 ML DISP.SYRIN SQ SCH (10:20)
[2021-09-18] MEDS: FUROSEMIDE 40 MG TABLET (FP) PO SCH (10:20)
[2021-09-18] MEDS: amLODIPine BESYLATE 5 MG TABLET (FP) PO SCH (10:20)
[2021-09-18] MEDS: FERROUS SO4 325 MG TABLET (FP) PO SCH (10:20)
[2021-09-18 15:49] VITALS: BP 97/61; PULSE 107; TEMP 97.6
== END 2021-09-18 20:54 | disposition home or self-care (01) | DRG 48 ==
LOC: JER 11:56 → JERBED 17:49 → J8W 09-15 18:06
PROVIDERS: ADMIT Internal Medicine
DX: M54.12 Radiculopathy, cervical region (principal); I50.33 Acute on chronic diastolic (congestive) heart failure; I11.0 Hypertensive heart disease with heart failure; M48.02 Spinal stenosis, cervical region; D64.9 Anemia, unspecified; E78.5 Hyperlipidemia, unspecified; E87.6 Hypokalemia; R74.01 Elevation of levels of liver transaminase levels
CPT/HCPCS: 0241U-QW; 36415; 70450-TC; 71045-TC-FY; 71275-TC; 72125-TC; 76700-TC; 80053; 80307; 82550; 82977; 83735; 84100; 84484; 85025; 85379; 85610; 85730; 86803; 87340; 93005; 93010; 93306-TC; 99285-25; Q9967

== ENCOUNTER 2021-10-24 04:41 | Day surgery (SDC) | payer OTHER ==
[2021-10-22 15:23] VITALS: BMI 28.5
[~2021-10-24 04:41] MED LIST: BUPIVACAINE HCL/PF 0.5% (5MG/ML) 10 ML VIAL IJ ONE; LIDOCAINE HCL 1% PRESERVATIVE FREE - 30ML VIAL IJ ONE
[2021-10-24] MEDS ORDERED: LIDOCAINE HCL/PF 1% SDV 5ML VIAL ONE (07:45)
[2021-10-24] MEDS ORDERED: BUPIVACAINE HCL/PF 0.5% (5MG/ML) 10 ML VIAL ONE (07:45)
[2021-10-24] MEDS ORDERED: LIDOCAINE HCL 1% PRESERVATIVE FREE - 30ML VIAL IJ ONE (11:16)
[2021-10-24] MEDS ORDERED: BUPIVACAINE HCL/PF 0.5% (5MG/ML) 10 ML VIAL IJ ONE (11:20)
[2021-10-24 12:54] VITALS: BP 136/72; PULSE 75; RESP 20; TEMP 97.8
== END 2021-10-24 12:00 | disposition home or self-care (01) ==
LOC: JASU-SURG 04:41
PROVIDERS: ATTEND Pain Medicine Pain Medicine
PROC: BR14YZZ Fluoroscopy of Cervical Facet Joint(s) using Other Contrast (ICD-10-PCS; 2021-10-24)
PROC: 3E0T3BZ Introduction of Anesthetic Agent into Peripheral Nerves and Plexi, Percutaneous Approach (ICD-10-PCS; principal; 2021-10-24 09:00)
DX: M47.812 Spondylosis without myelopathy or radiculopathy, cervical region (principal)
CPT/HCPCS: 76000-TC-FY

== ENCOUNTER 2021-11-21 04:12 | Day surgery (SDC) | payer OTHER ==
[2021-11-18 15:18] VITALS: BMI 29.5
[2021-11-21] MEDS ORDERED: LIDOCAINE HCL/PF 1% SDV 5ML VIAL ONE (07:17)
[2021-11-21] MEDS ORDERED: BUPIVACAINE HCL/PF 0.5% (5MG/ML) 10 ML VIAL ONE ×2 (07:17→09:51)
[2021-11-21] MEDS ORDERED: BUPIVACAINE HCL/PF 0.5% (5MG/ML) 10 ML VIAL IJ ONE ×3 (09:53→10:20)
[2021-11-21] MEDS ORDERED: LIDOCAINE HCL 2% 100 MG/5 ML DISP.SYRIN NR ONE (09:54)
[2021-11-21] MEDS ORDERED: LIDOCAINE HCL 1% PRESERVATIVE FREE - 30ML VIAL IJ ONE ×2 (09:56)
[2021-11-21 12:06] VITALS: RESP 18
[2021-11-21 12:15] VITALS: BP 129/72; PULSE 81; TEMP 98
== END 2021-11-21 11:30 | disposition home or self-care (01) ==
LOC: JASU-SURG 04:12
PROVIDERS: ATTEND Pain Medicine Pain Medicine
PROC: BR14YZZ Fluoroscopy of Cervical Facet Joint(s) using Other Contrast (ICD-10-PCS; 2021-11-21)
PROC: 3E0T3BZ Introduction of Anesthetic Agent into Peripheral Nerves and Plexi, Percutaneous Approach (ICD-10-PCS; principal; 2021-11-21 10:00)
DX: M47.812 Spondylosis without myelopathy or radiculopathy, cervical region (principal)
CPT/HCPCS: 76000-TC-FY

== ENCOUNTER → 2021-12-12 | Day surgery (SDC) | payer OTHER ==
[2021-12-10 15:26] VITALS: BMI 29.3
[~2021-12-12] MED LIST changes: -BUPIVACAINE HCL/PF 0.5% (5MG/ML) 10 ML VIAL IJ ONE; +BUPIVACAINE HCL/PF 0.75% 10 ML VIAL ONE; -LIDOCAINE HCL 1% PRESERVATIVE FREE - 30ML VIAL IJ ONE; +LIDOCAINE HCL/PF 1% SDV 5ML VIAL ONE
== END | disposition home or self-care (01) ==
LOC: JASU-SURG 04:17
PROVIDERS: ATTEND Pain Medicine Pain Medicine
DX: Z53.8 Procedure and treatment not carried out for other reasons (principal)

== ENCOUNTER 2022-01-02 04:09 | Day surgery (SDC) | payer OTHER ==
[2022-01-01 10:37] VITALS: BMI 29.3
[2022-01-02 11:05] VITALS: RESP 18
[2022-01-02] MEDS ORDERED: BUPIVACAINE HCL/PF 0.5% (5MG/ML) 10 ML VIAL IJ ONE (13:35)
[2022-01-02] MEDS ORDERED: LIDOCAINE HCL 1% PRESERVATIVE FREE - 30ML VIAL IJ ONE (13:37)
[2022-01-02] MEDS ORDERED: DEXAMETHASONE SOD PHOSPHATE 10 MG/1 ML VIAL IVPUSH ONE (13:40)
[2022-01-02 15:54] VITALS: BP 103/67; PULSE 80; TEMP 97.8
== END 2022-01-02 14:35 | disposition home or self-care (01) ==
LOC: JASU-SURG 04:09
PROVIDERS: ATTEND Pain Medicine Pain Medicine
PROC: 3E0T3TZ Introduction of Destructive Agent into Peripheral Nerves and Plexi, Percutaneous Approach (ICD-10-PCS; principal; 2022-01-02 11:45)
PROC: BR14YZZ Fluoroscopy of Cervical Facet Joint(s) using Other Contrast (ICD-10-PCS; 2022-01-02 11:45)
DX: M47.812 Spondylosis without myelopathy or radiculopathy, cervical region (principal)
CPT/HCPCS: 76000-TC-FY; J1100

== ENCOUNTER 2022-01-25 01:31 | Inpatient (IN) | payer OTHER ==
[2022-01-25] MEDS ORDERED: ONDANSETRON 4 MG/2 ML VIAL IVPB ONE (02:42)
[2022-01-25] MEDS ORDERED: ASPIRIN 81 MG CHEWABLE TABLETS PO ONE (02:42)
[2022-01-25] MEDS ORDERED: ASPIRIN 81 MG CHEWABLE TABLETS ONE (03:21)
[2022-01-25] MEDS ORDERED: ONDANSETRON 4 MG/2 ML VIAL ONE (03:21)
[2022-01-25] MEDS ORDERED: PANTOPRAZOLE 20 MG TABLET PO ONE (04:54)
[2022-01-25 05:02] LABS: BASO % 0.5 % (0-2.0); EOS % 0.3 % (0-4.5); HEMATOCRIT 35.2 % (32.4-45.2); HEMOGLOBIN 12.1 GM/dL (10.7-15.3); LYMPH % 37.2 % (8-40); MCHC 34.3 g/dl (32.0-36.0); MEAN CELL VOLUME 78.8 fl (80-96); MEAN PLT VOLUME 8.4 fl (7.5-11.1); MONO % 11.3 % (3.8-10.2); NEUT % 50.7 % (42.8-82.8); PLATELET COUNT 209 10^3/uL (134-434); RBC 4.47 M/mm3 (3.60-5.2); RDW 13.5 % (11.6-15.6); WHITE BLOOD COUNT 6.1 K/mm3 (4.0-10.0)
[2022-01-25] MEDS ORDERED: MAG HYDROX/AL HYDROX/SIMETH -MYLANTA- ORAL SUSPENSION PO ONE (05:17)
[2022-01-25] MEDS ORDERED: FAMOTIDINE 20 MG/50 ML IVPB 20 MG/50 ML MG IVPB ONE (05:17)
[2022-01-25 05:20] LABS: INR 0.97 (0.83-1.09); PROTHROMBIN TIME (PATIENT) 11.2 SEC (9.7-13.0)
[2022-01-25 05:22] LABS: ACTIVATED PTT 26.1 SECONDS (25.2-36.5); ALBUMIN 3.3 g/dl (3.4-5.0); BLOOD UREA NITROGEN 23.5 mg/dL (7-18); CALCIUM 8.5 mg/dL (8.5-10.1); MAGNESIUM 2.1 mg/dL (1.8-2.4)
[2022-01-25 05:24] LABS: CREATININE 1.1 mg/dL (0.55-1.3)
[2022-01-25 05:26] LABS: BILIRUBIN,TOTAL 0.3 mg/dL (0.2-1)
[2022-01-25 05:31] LABS: N-TERMINAL BNP 57.3 pg/ml (5-450)
[2022-01-25] MEDS ORDERED: SODIUM CHLORIDE 500 ML IV STA (05:35)
[2022-01-25] MEDS ORDERED: POTASSIUM CHLORIDE ORAL LIQUID 20 MEQ/15 ML PO ONE (05:35)
[2022-01-25] MEDS ORDERED: MAG HYDROX/AL HYDROX/SIMETH 30 ML UNIT-DOSE CUP ONE (05:42)
[2022-01-25] MEDS ORDERED: PANTOPRAZOLE 40 MG TABLET PO ONE ×3 (05:42→19:30)
[2022-01-25] MEDS ORDERED: POTASSIUM CHLORIDE ORAL LIQUID 20 MEQ/15 ML ONE (05:42)
[2022-01-25] MEDS: KCL 10 MEQ IVPB 10 MEQ/100 ML INFUS.BAG IVPB SCH ×3 (06:19→09:57)
[2022-01-25] MEDS ORDERED: KCL 10 MEQ IVPB 10 MEQ/100 ML INFUS.BAG IVPB ONE (08:35)
[2022-01-25] MEDS ORDERED: ATORVASTATIN CA 40 MG TABLET (FP) PO ONE (19:23)
[2022-01-25] MEDS ORDERED: ATORVASTATIN CA 40 MG TABLET (FP) ONE (19:30)
[2022-01-25 20:22] LABS: CALCIUM 8.6 mg/dL (8.5-10.1)
[2022-01-25 20:23] LABS: BLOOD UREA NITROGEN 20.7 mg/dL (7-18)
[2022-01-25 20:26] LABS: CREATININE 1.4 mg/dL (0.55-1.3)
[2022-01-25 20:27] LABS: BILIRUBIN,TOTAL 0.2 mg/dL (0.2-1)
[2022-01-25 20:28] LABS: TOT PROT 6.7 g/dl (6.4-8.2)
[2022-01-25] MEDS ORDERED: DEXAMETHASONE SOD PHOSPHATE 10 MG/1 ML VIAL ONE (20:43)
[2022-01-25] MEDS: DEXAMETHASONE SOD PHOSPHATE 10 MG/1 ML VIAL IVPUSH SCH (20:50)
[2022-01-25] MEDS ORDERED: REMDESIVIR 200 MG in SODIUM CHLORIDE 250 ML IVPB ONE (21:30)
[2022-01-25] MEDS: GABAPENTIN 300 MG CAPSULE PO SCH (23:05)
[2022-01-25] MEDS: amLODIPine BESYLATE 5 MG TABLET (FP) PO SCH (23:05)
[2022-01-25] MEDS: ATORVASTATIN CA 40 MG TABLET (FP) PO SCH (23:05)
[2022-01-25] MEDS: FERROUS SO4 325 MG TABLET (FP) PO SCH (23:05)
[2022-01-26] MEDS: TOPIRAMATE 25 MG TABLET PO SCH ×2 (00:28→21:36)
[2022-01-26] MEDS ORDERED: REMDESIVIR 200 MG in SODIUM CHLORIDE 250 ML IVPB ONE (00:45)
[2022-01-26 03:16] VITALS: BMI 28.8
[2022-01-26 07:51] LABS: BASO % 0.1 % (0-2.0); HEMATOCRIT 37.7 % (32.4-45.2); HEMOGLOBIN 12.5 GM/dL (10.7-15.3); LYMPH % 36.8 % (8-40); MCH 26.5 pg (25.7-33.7); MCHC 33.1 g/dl (32.0-36.0); MEAN CELL VOLUME 80.1 fl (80-96); MEAN PLT VOLUME 8.9 fl (7.5-11.1); MONO % 2.6 % (3.8-10.2); NEUT % 60.5 % (42.8-82.8); PLATELET COUNT 242 10^3/uL (134-434); RDW 13.8 % (11.6-15.6); WHITE BLOOD COUNT 3.6 K/mm3 (4.0-10.0)
[2022-01-26 07:57] LABS: CALCIUM 9.2 mg/dL (8.5-10.1)
[2022-01-26 07:58] LABS: ALBUMIN 3.4 g/dl (3.4-5.0)
[2022-01-26 08:01] LABS: CREATININE 1.2 mg/dL (0.55-1.3)
[2022-01-26 08:02] LABS: BILIRUBIN,TOTAL 0.2 mg/dL (0.2-1); PHOSPHOROUS 2.5 mg/dL (2.5-4.9); TOT PROT 7.3 g/dl (6.4-8.2)
[2022-01-26 09:05] LABS: ERYTHROCYTE SEDIMENTATION RATE 43 mm/hr (0-30)
[2022-01-26] MEDS: PANTOPRAZOLE 40 MG TABLET PO SCH (09:54)
[2022-01-26] MEDS: DEXAMETHASONE SOD PHOSPHATE 10 MG/1 ML VIAL IVPUSH SCH (09:54)
[2022-01-26] MEDS: LISINOPRIL 5 MG TABLET PO SCH (09:54)
[2022-01-26] MEDS ORDERED: REMDESIVIR 100 MG in SODIUM CHLORIDE 250 ML IVPB SCH (10:00)
[2022-01-26] MEDS: SOLIFENACIN SUCCINATE 5 MG TAB PO SCH (12:38)
[2022-01-26] MEDS: TRIAMTERENE AND HCTZ - 37.5 MG/25 MG CAPSULE PO SCH (12:38)
[2022-01-26] MEDS: ENOXAPARIN NA (PORCINE) 40 MG/0.4 ML DISP.SYRIN SQ SCH (12:38)
[2022-01-26] MEDS: amLODIPine BESYLATE 5 MG TABLET (FP) PO SCH (21:15)
[2022-01-26] MEDS: FERROUS SO4 325 MG TABLET (FP) PO SCH (21:15)
[2022-01-26] MEDS: ATORVASTATIN CA 40 MG TABLET (FP) PO SCH (21:15)
[2022-01-26] MEDS: GABAPENTIN 300 MG CAPSULE PO SCH (21:15)
[2022-01-27] MEDS: REMDESIVIR 100 MG in SODIUM CHLORIDE 250 ML IVPB SCH ×3 (00:49→22:00)
[2022-01-27 07:35] LABS: BASO % 0.1 % (0-2.0); HEMATOCRIT 35.5 % (32.4-45.2); HEMOGLOBIN 11.6 GM/dL (10.7-15.3); LYMPH % 27.9 % (8-40); MCH 25.9 pg (25.7-33.7); MCHC 32.7 g/dl (32.0-36.0); MEAN CELL VOLUME 79.3 fl (80-96); MEAN PLT VOLUME 8.6 fl (7.5-11.1); MONO % 8.8 % (3.8-10.2); NEUT % 63.2 % (42.8-82.8); PLATELET COUNT 242 10^3/uL (134-434); RBC 4.48 M/mm3 (3.60-5.2); RDW 13.7 % (11.6-15.6); WHITE BLOOD COUNT 7.6 K/mm3 (4.0-10.0)
[2022-01-27 07:50] LABS: ALBUMIN 3.2 g/dl (3.4-5.0); BLOOD UREA NITROGEN 28.5 mg/dL (7-18); CALCIUM 9.1 mg/dL (8.5-10.1); MAGNESIUM 1.9 mg/dL (1.8-2.4)
[2022-01-27 07:53] LABS: CREATININE 1.1 mg/dL (0.55-1.3)
[2022-01-27 07:54] LABS: BILIRUBIN,TOTAL 0.2 mg/dL (0.2-1); TOT PROT 6.8 g/dl (6.4-8.2)
[2022-01-27] MEDS: DEXAMETHASONE SOD PHOSPHATE 10 MG/1 ML VIAL IVPUSH SCH (11:27)
[2022-01-27] MEDS: ENOXAPARIN NA (PORCINE) 40 MG/0.4 ML DISP.SYRIN SQ SCH (11:29)
[2022-01-27] MEDS: PANTOPRAZOLE 40 MG TABLET PO SCH (11:32)
[2022-01-27] MEDS: TRIAMTERENE AND HCTZ - 37.5 MG/25 MG CAPSULE PO SCH (11:33)
[2022-01-27] MEDS: LISINOPRIL 5 MG TABLET PO SCH (11:33)
[2022-01-27] MEDS: SOLIFENACIN SUCCINATE 5 MG TAB PO SCH (11:34)
[2022-01-27] MEDS: amLODIPine BESYLATE 5 MG TABLET (FP) PO SCH (22:01)
[2022-01-27] MEDS: ATORVASTATIN CA 40 MG TABLET (FP) PO SCH (22:01)
[2022-01-27] MEDS: GABAPENTIN 300 MG CAPSULE PO SCH (22:01)
[2022-01-27] MEDS: FERROUS SO4 325 MG TABLET (FP) PO SCH (22:01)
[2022-01-27] MEDS: TOPIRAMATE 25 MG TABLET PO SCH (22:01)
[2022-01-27] MEDS: ACETAMINOPHEN 325 MG TABLET (FP) PO PRN (23:00)
[2022-01-28 08:26] LABS: BASO % 0.2 % (0-2.0); HEMATOCRIT 34.4 % (32.4-45.2); HEMOGLOBIN 11.7 GM/dL (10.7-15.3); LYMPH % 31.7 % (8-40); MEAN CELL VOLUME 79.2 fl (80-96); MEAN PLT VOLUME 8.5 fl (7.5-11.1); MONO % 7.5 % (3.8-10.2); NEUT % 60.6 % (42.8-82.8); PLATELET COUNT 230 10^3/uL (134-434); RBC 4.34 M/mm3 (3.60-5.2); RDW 13.6 % (11.6-15.6); WHITE BLOOD COUNT 10.4 K/mm3 (4.0-10.0)
[2022-01-28 08:47] LABS: BLOOD UREA NITROGEN 30.6 mg/dL (7-18)
[2022-01-28 08:49] LABS: ALBUMIN 3.1 g/dl (3.4-5.0); MAGNESIUM 2.1 mg/dL (1.8-2.4)
[2022-01-28 08:52] LABS: CREATININE 1.1 mg/dL (0.55-1.3)
[2022-01-28 08:53] LABS: BILIRUBIN,TOTAL 0.2 mg/dL (0.2-1); TOT PROT 6.6 g/dl (6.4-8.2)
[2022-01-28] MEDS: DEXAMETHASONE SOD PHOSPHATE 10 MG/1 ML VIAL IVPUSH SCH (10:07)
[2022-01-28] MEDS: SOLIFENACIN SUCCINATE 5 MG TAB PO SCH (10:08)
[2022-01-28] MEDS: PANTOPRAZOLE 40 MG TABLET PO SCH (10:08)
[2022-01-28] MEDS: ENOXAPARIN NA (PORCINE) 40 MG/0.4 ML DISP.SYRIN SQ SCH (10:08)
[2022-01-28] MEDS: LISINOPRIL 5 MG TABLET PO SCH (10:09)
[2022-01-28] MEDS: TRIAMTERENE AND HCTZ - 37.5 MG/25 MG CAPSULE PO SCH (10:10)
[2022-01-28] MEDS: REMDESIVIR 100 MG in SODIUM CHLORIDE 250 ML IVPB SCH ×2 (20:48→21:02)
[2022-01-28] MEDS: GABAPENTIN 300 MG CAPSULE PO SCH ×2 (20:49→21:02)
[2022-01-28] MEDS: FERROUS SO4 325 MG TABLET (FP) PO SCH ×2 (20:50→21:01)
[2022-01-28] MEDS: amLODIPine BESYLATE 5 MG TABLET (FP) PO SCH ×2 (20:50→21:02)
[2022-01-28] MEDS: TOPIRAMATE 25 MG TABLET PO SCH ×2 (20:50→21:02)
[2022-01-28] MEDS: ATORVASTATIN CA 40 MG TABLET (FP) PO SCH ×2 (20:50→21:01)
[2022-01-28] MEDS: ACETAMINOPHEN 325 MG TABLET (FP) PO PRN (21:20)
[2022-01-28] MEDS ORDERED: MELATONIN 5 MG TABLETS PO ONE (22:19)
[2022-01-29 08:13] LABS: BASO % 0.1 % (0-2.0); EOS % 0.1 % (0-4.5); HEMATOCRIT 35.1 % (32.4-45.2); LYMPH % 36.6 % (8-40); MCH 26.7 pg (25.7-33.7); MCHC 34.2 g/dl (32.0-36.0); MEAN CELL VOLUME 78.2 fl (80-96); MEAN PLT VOLUME 8.3 fl (7.5-11.1); MONO % 7.5 % (3.8-10.2); NEUT % 55.7 % (42.8-82.8); PLATELET COUNT 239 10^3/uL (134-434); RBC 4.49 M/mm3 (3.60-5.2); RDW 13.9 % (11.6-15.6); WHITE BLOOD COUNT 10.4 K/mm3 (4.0-10.0)
[2022-01-29 08:27] LABS: CHLORIDE 104 mmol/L (98-107); SODIUM 138 mmol/L (136-145)
[2022-01-29 08:38] LABS: BLOOD UREA NITROGEN 34.3 mg/dL (7-18)
[2022-01-29 08:39] LABS: CALCIUM 9.2 mg/dL (8.5-10.1)
[2022-01-29 08:40] LABS: ALBUMIN 3.2 g/dl (3.4-5.0); ANION GAP 9 MMOL/L (8-16); CO2 25 mmol/L (21-32); GLUCOSE,RANDOM 88 mg/dL (74-106)
[2022-01-29 08:41] LABS: CREATININE 1.1 mg/dL (0.55-1.3); SGOT/AST 19 U/L (15-37); SGPT/ALT 34 U/L (13-61)
[2022-01-29 08:42] LABS: BILIRUBIN,TOTAL 0.2 mg/dL (0.2-1); LDH 170 U/L (84-246); TOT PROT 6.5 g/dl (6.4-8.2)
[2022-01-29 08:43] LABS: ALK PHOS 70 U/L (45-117)
[2022-01-29] MEDS: DEXAMETHASONE SOD PHOSPHATE 10 MG/1 ML VIAL IVPUSH SCH (10:10)
[2022-01-29] MEDS: SOLIFENACIN SUCCINATE 5 MG TAB PO SCH (10:10)
[2022-01-29] MEDS: PANTOPRAZOLE 40 MG TABLET PO SCH (10:11)
[2022-01-29] MEDS: LISINOPRIL 5 MG TABLET PO SCH (10:11)
[2022-01-29] MEDS: ENOXAPARIN NA (PORCINE) 40 MG/0.4 ML DISP.SYRIN SQ SCH (10:12)
[2022-01-29] MEDS: TRIAMTERENE AND HCTZ - 37.5 MG/25 MG CAPSULE PO SCH (10:13)
[2022-01-29 12:22] VITALS: RESP 20
[2022-01-29 15:36] VITALS: BP 111/60; PULSE 97; TEMP 97.4
== END 2022-01-29 16:08 | disposition home or self-care (01) | DRG 137 ==
LOC: JER 01:31 → JERBED 02:38 → OBSVTOIN 20:06 → J4W 23:07
PROVIDERS: ADMIT Internal Medicine; ATTEND Nurse Practitioner Family
PROC: XW033E5 Introduction of Remdesivir Anti-infective into Peripheral Vein, Percutaneous Approach, New Technology Group 5 (ICD-10-PCS; principal; 2022-01-25)
DX: U07.1 COVID-19 (principal); I11.0 Hypertensive heart disease with heart failure; N17.9 Acute kidney failure, unspecified; E87.1 Hypo-osmolality and hyponatremia; D64.9 Anemia, unspecified; E78.5 Hyperlipidemia, unspecified; E87.6 Hypokalemia; J45.909 Unspecified asthma, uncomplicated
CPT/HCPCS: 0241U-QW; 36415; 71045-TC-FY; 80053; 82728; 83615; 83690; 83735; 83880; 84100; 84484; 85025; 85379; 85610; 85651; 85730; 86140; 93005; 93010; 94761; 97116-GP; 97162-GP; 99285-25; C9399; G0378; J1100

== ENCOUNTER 2022-02-05 18:47 | Inpatient (IN) | payer OTHER ==
[2022-02-05 22:44] LABS: EPI CELLS 3 /uL (0-25.1); HYALINE CASTS 0 /uL (0-3.1); PH,URINE 5.5 (5.0-8.0); URINE APPEARANCE CLEAR; URINE BACTERIA 1 /uL (0-1359); URINE BILIRUBIN NEGATIVE (NEGATIVE); URINE COLOR YELLOW; URINE GLUCOSE (UA) NEGATIVE (NEGATIVE); URINE KETONE NEGATIVE (NEGATIVE); URINE LEUK ESTERASE TRACE (NEGATIVE); URINE NITRITE NEGATIVE (NEGATIVE); URINE PROTEIN NEGATIVE (NEGATIVE); URINE RBC 3 /uL (0-23.9); URINE UROBILINOGEN 0.2 mg/dL (0.2-1.0); URINE WBC 24 /uL (0-25.8)
[2022-02-05 22:53] LABS: BASO % 0.3 % (0-2.0); EOS % 0.6 % (0-4.5); HEMOGLOBIN 13.3 GM/dL (10.7-15.3); LYMPH % 38.7 % (8-40); MCH 26.5 pg (25.7-33.7); MCHC 33.3 g/dl (32.0-36.0); MEAN CELL VOLUME 79.7 fl (80-96); MEAN PLT VOLUME 7.8 fl (7.5-11.1); MONO % 8.4 % (3.8-10.2); PLATELET COUNT 217 10^3/uL (134-434); RBC 5.03 M/mm3 (3.60-5.2); RDW 13.6 % (11.6-15.6); WHITE BLOOD COUNT 10.4 K/mm3 (4.0-10.0)
[2022-02-05 23:16] LABS: CALCIUM 8.8 mg/dL (8.5-10.1)
[2022-02-05 23:17] LABS: ALBUMIN 3.3 g/dl (3.4-5.0)
[2022-02-05 23:18] LABS: CREATININE 1.2 mg/dL (0.55-1.3)
[2022-02-05 23:19] LABS: BILIRUBIN,TOTAL 0.5 mg/dL (0.2-1); TOT PROT 6.9 g/dl (6.4-8.2)
[2022-02-05 23:31] LABS: N-TERMINAL BNP 71.9 pg/ml (5-450)
[2022-02-06] MEDS ORDERED: ALBUTEROL SO4 2.5/IPRATROPIUM 0.5 INH SOL 3 ML VIAL.NEB. NEB ONE ×2 (04:59→05:02)
[2022-02-06] MEDS ORDERED: DEXAMETHASONE SOD PHOSPHATE 10 MG/1 ML VIAL IVPUSH SCH (10:00)
[2022-02-06] MEDS ORDERED: ALPRAZolam 0.25 MG TABLET PO PRN (10:46)
[2022-02-06] MEDS ORDERED: ALBUTEROL SO4 HFA INHALER IH ONE (12:03)
[2022-02-06] MEDS ORDERED: ALPRAZolam 0.25 MG TABLET ONE (12:03)
[2022-02-06] MEDS ORDERED: ENOXAPARIN NA (PORCINE) 40 MG/0.4 ML DISP.SYRIN SQ ONE (12:04)
[2022-02-06] MEDS: ENOXAPARIN NA (PORCINE) 40 MG/0.4 ML DISP.SYRIN SQ SCH (12:13)
[2022-02-06] MEDS: ALBUTEROL SO4 HFA INHALER IH PRN ×2 (12:14→22:47)
[2022-02-06] MEDS: BUDESONIDE/FORMETEROL FUMARATE 80/4.5 mcg INHALER IH SCH ×2 (12:40→22:46)
[2022-02-06] MEDS ORDERED: PANTOPRAZOLE 40 MG TABLET PO ONE (14:01)
[2022-02-06] MEDS: PANTOPRAZOLE 40 MG TABLET PO SCH (14:08)
[2022-02-06 14:27] LABS: BASO % 0.5 % (0-2.0); EOS % 0.3 % (0-4.5); HEMATOCRIT 40.2 % (32.4-45.2); HEMOGLOBIN 13.1 GM/dL (10.7-15.3); LYMPH % 19.5 % (8-40); MCH 26.1 pg (25.7-33.7); MCHC 32.6 g/dl (32.0-36.0); MEAN CELL VOLUME 80.2 fl (80-96); MEAN PLT VOLUME 8.1 fl (7.5-11.1); MONO % 7.6 % (3.8-10.2); NEUT % 72.1 % (42.8-82.8); PLATELET COUNT 225 10^3/uL (134-434); RBC 5.01 M/mm3 (3.60-5.2); RDW 13.6 % (11.6-15.6); WHITE BLOOD COUNT 12.1 K/mm3 (4.0-10.0)
[2022-02-06 14:46] LABS: CHLORIDE 96 mmol/L (98-107); SODIUM 134 mmol/L (136-145)
[2022-02-06 14:49] LABS: CALCIUM 9.1 mg/dL (8.5-10.1)
[2022-02-06 14:50] LABS: ALBUMIN 3.5 g/dl (3.4-5.0); ANION GAP 11 MMOL/L (8-16); BLOOD UREA NITROGEN 26.5 mg/dL (7-18); CO2 27 mmol/L (21-32); GLUCOSE,RANDOM 108 mg/dL (74-106); MAGNESIUM 2.3 mg/dL (1.8-2.4)
[2022-02-06 14:52] LABS: CREATININE 1.1 mg/dL (0.55-1.3); PHOSPHOROUS 3.4 mg/dL (2.5-4.9); SGOT/AST 18 U/L (15-37); SGPT/ALT 34 U/L (13-61)
[2022-02-06 14:54] LABS: BILIRUBIN,TOTAL 0.6 mg/dL (0.2-1); LDH 221 U/L (84-246); TOT PROT 7.2 g/dl (6.4-8.2)
[2022-02-06 14:55] LABS: ALK PHOS 73 U/L (45-117)
[2022-02-06 15:11] VITALS: BMI 25.0
[2022-02-06] MEDS: ACETAMINOPHEN 325 MG TABLET (FP) PO PRN (17:56)
[2022-02-06] MEDS ORDERED: ATORVASTATIN CA 40 MG TABLET (FP) PO SCH (22:00)
[2022-02-06] MEDS ORDERED: CHOLECALCIFEROL (VIT D3) 1,000 UNIT (25 MCG) TABLET PO SCH (22:00)
[2022-02-06] MEDS ORDERED: GABAPENTIN 300 MG CAPSULE PO SCH (22:00)
[2022-02-06] MEDS ORDERED: TOPIRAMATE 25 MG TABLET PO SCH (22:00)
[2022-02-06] MEDS ORDERED: amLODIPine BESYLATE 5 MG TABLET (FP) PO SCH (22:00)
[2022-02-07] MEDS ORDERED: PANTOPRAZOLE 40 MG TABLET PO SCH (07:00)
[2022-02-07] MEDS: ENOXAPARIN NA (PORCINE) 40 MG/0.4 ML DISP.SYRIN SQ SCH (09:56)
[2022-02-07] MEDS: PANTOPRAZOLE 40 MG TABLET PO SCH (09:57)
[2022-02-07] MEDS: BUDESONIDE/FORMETEROL FUMARATE 80/4.5 mcg INHALER IH SCH (09:59)
[2022-02-07 10:34] LABS: BASO % 0.5 % (0-2.0); EOS % 2.1 % (0-4.5); HEMOGLOBIN 12.7 GM/dL (10.7-15.3); LYMPH % 27.2 % (8-40); MCH 25.9 pg (25.7-33.7); MCHC 32.7 g/dl (32.0-36.0); MEAN CELL VOLUME 79.3 fl (80-96); MEAN PLT VOLUME 8.6 fl (7.5-11.1); MONO % 6.9 % (3.8-10.2); NEUT % 63.3 % (42.8-82.8); PLATELET COUNT 215 10^3/uL (134-434); RBC 4.91 M/mm3 (3.60-5.2); RDW 13.6 % (11.6-15.6); WHITE BLOOD COUNT 8.8 K/mm3 (4.0-10.0)
[2022-02-07 10:58] LABS: CALCIUM 9.5 mg/dL (8.5-10.1)
[2022-02-07 10:59] LABS: ALBUMIN 3.1 g/dl (3.4-5.0); BLOOD UREA NITROGEN 22.9 mg/dL (7-18); MAGNESIUM 2.2 mg/dL (1.8-2.4)
[2022-02-07 11:01] LABS: PHOSPHOROUS 2.7 mg/dL (2.5-4.9)
[2022-02-07 11:02] LABS: CREATININE 1.3 mg/dL (0.55-1.3)
[2022-02-07 11:04] LABS: BILIRUBIN,TOTAL 0.7 mg/dL (0.2-1); TOT PROT 6.4 g/dl (6.4-8.2)
[2022-02-07] MEDS ORDERED: POTASSIUM CHLORIDE TABS 20 MEQ TABLET.ER (FP) PO SCH (11:15)
[2022-02-07] MEDS ORDERED: LIDOCAINE 5% TOPICAL PATCH TP SCH (11:15)
[2022-02-07] MEDS: ACETAMINOPHEN 325 MG TABLET (FP) PO PRN (15:06)
[2022-02-07 15:35] VITALS: BP 135/69; PULSE 116; RESP 18; TEMP 100.4
[2022-02-07] MEDS ORDERED: LIDOCAINE PATCH REMOVAL MC SCH (22:00)
[2022-02-08] MEDS ORDERED: TRIAMTERENE AND HCTZ - 37.5 MG/25 MG CAPSULE PO SCH (10:00)
== END 2022-02-07 17:30 | disposition home or self-care (01) | DRG 144 ==
LOC: JER 18:47 → JERBED 02-06 05:17 → J5S 02-06 14:29
PROVIDERS: ADMIT Internal Medicine; ATTEND Nurse Practitioner Acute Care
DX: R06.00 Dyspnea, unspecified (principal); U07.1 COVID-19; E78.5 Hyperlipidemia, unspecified; I10 Essential (primary) hypertension; R07.89 Other chest pain; D64.9 Anemia, unspecified; M50.30 Other cervical disc degeneration, unspecified cervical region; Z86.711 Personal history of pulmonary embolism
CPT/HCPCS: 0241U-QW; 36415; 71045-TC-FY; 71275-TC; 80053; 81003; 82550; 82728; 83615; 83735; 83880; 84100; 84484; 85025; 85379; 86140; 93005; 93010; 94761; 99285-25; Q9967

== ENCOUNTER 2022-06-24 21:35 | Inpatient (IN) | payer BC, OTHER ==
[2022-06-24 21:50] VITALS: BMI 24.9
[2022-06-24 22:49] LABS: VENOUS BASE EXCESS -8.7 mmol/L (-2-2); VENOUS O2 SATURATION 75.9 % (70-80); VENOUS PCO2 26.8 mmHg (38-52); VENOUS PH 7.376 (7.310-7.410)
[2022-06-24 22:50] LABS: BASO % 0.3 % (0-2.0); EOS % 2.6 % (0-4.5); HEMATOCRIT 35.8 % (32.4-45.2); HEMOGLOBIN 11.7 GM/dL (10.7-15.3); MCH 25.6 pg (25.7-33.7); MCHC 32.6 g/dl (32.0-36.0); MEAN CELL VOLUME 78.5 fl (80-96); MEAN PLT VOLUME 8.5 fl (7.5-11.1); MONO % 8.5 % (3.8-10.2); NEUT % 62.6 % (42.8-82.8); PLATELET COUNT 228 10^3/uL (134-434); RBC 4.56 M/mm3 (3.60-5.2); RDW 14.2 % (11.6-15.6); WHITE BLOOD COUNT 8.5 K/mm3 (4.0-10.0)
[2022-06-24 23:00] LABS: INR 0.97 (0.83-1.09); PROTHROMBIN TIME (PATIENT) 11.2 SEC (9.7-13.0)
[2022-06-24 23:03] LABS: ACTIVATED PTT 26.2 SECONDS (25.2-36.5)
[2022-06-24 23:13] LABS: CALCIUM 8.4 mg/dL (8.5-10.1)
[2022-06-24 23:14] LABS: ALBUMIN 2.7 g/dl (3.4-5.0); BLOOD UREA NITROGEN 11.7 mg/dL (7-18)
[2022-06-24 23:17] LABS: CREATININE 0.6 mg/dL (0.55-1.3)
[2022-06-24 23:18] LABS: BILIRUBIN,TOTAL 0.4 mg/dL (0.2-1); TOT PROT 5.9 g/dl (6.4-8.2)
[2022-06-24 23:21] LABS: N-TERMINAL BNP 76.1 pg/ml (5-450)
[2022-06-24 23:27] LABS: URINE APPEARANCE CLEAR; URINE BILIRUBIN NEGATIVE (NEGATIVE); URINE COLOR YELLOW; URINE GLUCOSE (UA) NEGATIVE (NEGATIVE); URINE KETONE NEGATIVE (NEGATIVE); URINE LEUK ESTERASE NEGATIVE (NEGATIVE); URINE NITRITE NEGATIVE (NEGATIVE); URINE PROTEIN NEGATIVE (NEGATIVE); URINE UROBILINOGEN 0.2 mg/dL (0.2-1.0)
[2022-06-25] MEDS ORDERED: CEFTRIAXONE 1 GM in DEXTROSE 5%-WATER - 50 ML IVPB ONE (01:01)
[2022-06-25] MEDS ORDERED: AZITHROMYCIN IVPB 500 MG in DEXTROSE 5%-WATER - 250 ML IVPB ONE (01:01)
[2022-06-25] MEDS ORDERED: CEFTRIAXONE 1 GM/50 ML BAG ONE (01:04)
[2022-06-25] MEDS ORDERED: AZITHROMYCIN IVPB 500 MG/250 ML BAG IVPB ONE (01:33)
[2022-06-25] MEDS ORDERED: methylPREDNISolone NA SUCC 125 MG/2 ML VIAL IVPB SCH (03:30)
[2022-06-25] MEDS ORDERED: FUROSEMIDE 40 MG/4 ML INJECTABLE VIAL IVPUSH ONE (03:36)
[2022-06-25] MEDS ORDERED: FUROSEMIDE 40 MG/4 ML INJECTABLE VIAL ONE (03:43)
[2022-06-25] MEDS ORDERED: KETOROLAC TROMETHAMINE 30 MG/1 ML VIAL IVPUSH ONE (03:49)
[2022-06-25] MEDS ORDERED: CYCLOBENZAPRINE HCL 5 MG TABLET PO ONE (03:50)
[2022-06-25] MEDS ORDERED: ACETAMINOPHEN 500 MG TABLET (FP) PO PRN (03:51)
[2022-06-25 04:02] LABS: MAGNESIUM 2.1 mg/dL (1.8-2.4)
[2022-06-25 04:05] LABS: PHOSPHOROUS 2.5 mg/dL (2.5-4.9)
[2022-06-25] MEDS ORDERED: LIDOCAINE 5% TOPICAL PATCH TP ONE (04:08)
[2022-06-25] MEDS ORDERED: LORazepam 2 MG/ML SDV VIAL IVPUSH ONE (04:10)
[2022-06-25 07:18] LABS: BASO % 0.4 % (0-2.0); EOS % 2.5 % (0-4.5); HEMATOCRIT 38.3 % (32.4-45.2); HEMOGLOBIN 12.6 GM/dL (10.7-15.3); LYMPH % 25.3 % (8-40); MCH 25.9 pg (25.7-33.7); MEAN CELL VOLUME 78.4 fl (80-96); MEAN PLT VOLUME 8.3 fl (7.5-11.1); MONO % 9.5 % (3.8-10.2); NEUT % 62.3 % (42.8-82.8); PLATELET COUNT 231 10^3/uL (134-434); RBC 4.88 M/mm3 (3.60-5.2); RDW 14.3 % (11.6-15.6); WHITE BLOOD COUNT 8.3 K/mm3 (4.0-10.0)
[2022-06-25 07:24] LABS: CALCIUM 8.9 mg/dL (8.5-10.1)
[2022-06-25 07:25] LABS: ALBUMIN 3.1 g/dl (3.4-5.0); MAGNESIUM 2.2 mg/dL (1.8-2.4)
[2022-06-25 07:28] LABS: CREATININE 0.7 mg/dL (0.55-1.3)
[2022-06-25 07:30] LABS: BILIRUBIN,TOTAL 0.3 mg/dL (0.2-1)
[2022-06-25 07:54] LABS: BLOOD UREA NITROGEN 10.7 mg/dL (7-18)
[2022-06-25] MEDS ORDERED: KETOROLAC TROMETHAMINE 15 MG/ML VIAL IVPUSH PRN (09:00)
[2022-06-25] MEDS ORDERED: TOPIRAMATE 25 MG TABLET ONE (09:48)
[2022-06-25] MEDS ORDERED: PANTOPRAZOLE 40 MG TABLET PO ONE (09:48)
[2022-06-25] MEDS ORDERED: ASPIRIN COATED 81 MG TABLET.EC ONE (09:48)
[2022-06-25] MEDS ORDERED: FERROUS SO4 325 MG TABLET (FP) ONE (09:48)
[2022-06-25] MEDS ORDERED: amLODIPine BESYLATE 5 MG TABLET (FP) ONE (09:48)
[2022-06-25] MEDS ORDERED: methylPREDNISolone NA SUCC 40 MG/1 ML VIAL ONE (09:49)
[2022-06-25] MEDS ORDERED: ENOXAPARIN NA (PORCINE) 40 MG/0.4 ML DISP.SYRIN SQ ONE (09:49)
[2022-06-25] MEDS: FERROUS SO4 325 MG TABLET (FP) PO SCH (09:50)
[2022-06-25] MEDS: ASPIRIN COATED 81 MG TABLET.EC PO SCH (09:50)
[2022-06-25] MEDS: methylPREDNISolone NA SUCC 125 MG/2 ML VIAL IVPB SCH ×2 (09:51→17:17)
[2022-06-25] MEDS: amLODIPine BESYLATE 5 MG TABLET (FP) PO SCH (09:51)
[2022-06-25] MEDS ORDERED: SOLIFENACIN SUCCINATE 5 MG TAB PO SCH (10:00)
[2022-06-25] MEDS ORDERED: TOPIRAMATE 25 MG TABLET PO SCH (10:00)
[2022-06-25] MEDS ORDERED: PANTOPRAZOLE 40 MG TABLET PO SCH (10:00)
[2022-06-25] MEDS ORDERED: ENOXAPARIN NA (PORCINE) 40 MG/0.4 ML DISP.SYRIN SQ SCH (10:00)
[2022-06-25] MEDS ORDERED: ALBUTEROL SO4 2.5/IPRATROPIUM 0.5 INH SOL 3 ML VIAL.NEB. NEB ONE ×2 (10:09→13:45)
[2022-06-25] MEDS: ALBUTEROL SO4 2.5/IPRATROPIUM 0.5 INH SOL 3 ML VIAL.NEB. NEB SCH ×4 (10:09→20:10)
[2022-06-25] MEDS ORDERED: ACETAMINOPHEN 500 MG TABLET (FP) ONE (10:30)
[2022-06-25] MEDS ORDERED: KETOROLAC TROMETHAMINE 15 MG/ML VIAL ONE (10:32)
[2022-06-25] MEDS: ATORVASTATIN CA 40 MG TABLET (FP) PO SCH (22:59)
[2022-06-25] MEDS: LIDOCAINE PATCH REMOVAL MC SCH (23:00)
[2022-06-26 07:54] LABS: HEMATOCRIT 35.6 % (32.4-45.2); HEMOGLOBIN 11.9 GM/dL (10.7-15.3); MCH 25.8 pg (25.7-33.7); MCHC 33.3 g/dl (32.0-36.0); MEAN CELL VOLUME 77.4 fl (80-96); MEAN PLT VOLUME 8.8 fl (7.5-11.1); PLATELET COUNT 254 10^3/uL (134-434); RDW 13.9 % (11.6-15.6); WHITE BLOOD COUNT 10.9 K/mm3 (4.0-10.0)
[2022-06-26 08:24] LABS: N-TERMINAL BNP 88.3 pg/ml (5-450)
[2022-06-26 08:26] LABS: ALBUMIN 2.9 g/dl (3.4-5.0); CALCIUM 9.2 mg/dL (8.5-10.1)
[2022-06-26 08:27] LABS: BLOOD UREA NITROGEN 22.6 mg/dL (7-18)
[2022-06-26 08:29] LABS: CREATININE 0.9 mg/dL (0.55-1.3)
[2022-06-26 08:32] LABS: BILIRUBIN,TOTAL 1.2 mg/dL (0.2-1); TOT PROT 6.8 g/dl (6.4-8.2)
[2022-06-26] MEDS: ALBUTEROL SO4 2.5/IPRATROPIUM 0.5 INH SOL 3 ML VIAL.NEB. NEB SCH ×4 (08:40→20:03)
[2022-06-26] MEDS: ENOXAPARIN NA (PORCINE) 40 MG/0.4 ML DISP.SYRIN SQ SCH (09:54)
[2022-06-26] MEDS: FERROUS SO4 325 MG TABLET (FP) PO SCH (09:55)
[2022-06-26] MEDS: FUROSEMIDE 40 MG/4 ML INJECTABLE VIAL IVPUSH SCH (09:55)
[2022-06-26] MEDS: ASPIRIN COATED 81 MG TABLET.EC PO SCH (09:55)
[2022-06-26] MEDS: amLODIPine BESYLATE 5 MG TABLET (FP) PO SCH (09:55)
[2022-06-26] MEDS ORDERED: PANTOPRAZOLE SODIUM 40 MG VIAL IVPUSH ONE (10:25)
[2022-06-26] MEDS ORDERED: SODIUM CHLORIDE 1,000 ML IV SCH (17:00)
[2022-06-26] MEDS: CEFTRIAXONE 1 GM in DEXTROSE 5%-WATER - 50 ML IVPB SCH (17:29)
[2022-06-26] MEDS: ACETAMINOPHEN 1000 MG/100 ML BAG IVPB PRN (21:23)
[2022-06-26] MEDS: ATORVASTATIN CA 40 MG TABLET (FP) PO SCH (21:23)
[2022-06-26] MEDS: LIDOCAINE PATCH REMOVAL MC SCH (21:31)
[2022-06-27] MEDS: ALBUTEROL SO4 2.5/IPRATROPIUM 0.5 INH SOL 3 ML VIAL.NEB. NEB SCH ×4 (08:59→20:54)
[2022-06-27 09:13] LABS: BASO % 0.8 % (0-2.0); EOS % 1.7 % (0-4.5); HEMATOCRIT 33.5 % (32.4-45.2); LYMPH % 32.7 % (8-40); MCH 25.5 pg (25.7-33.7); MEAN CELL VOLUME 77.4 fl (80-96); MEAN PLT VOLUME 8.6 fl (7.5-11.1); MONO % 8.9 % (3.8-10.2); NEUT % 55.9 % (42.8-82.8); PLATELET COUNT 225 10^3/uL (134-434); RBC 4.32 M/mm3 (3.60-5.2); RDW 13.7 % (11.6-15.6); WHITE BLOOD COUNT 7.8 K/mm3 (4.0-10.0)
[2022-06-27 09:50] LABS: CALCIUM 8.4 mg/dL (8.5-10.1)
[2022-06-27 09:52] LABS: ALBUMIN 2.7 g/dl (3.4-5.0); BLOOD UREA NITROGEN 26.2 mg/dL (7-18)
[2022-06-27 09:55] LABS: CREATININE 0.8 mg/dL (0.55-1.3)
[2022-06-27 09:56] LABS: BILIRUBIN,TOTAL 0.2 mg/dL (0.2-1); TOT PROT 6.1 g/dl (6.4-8.2)
[2022-06-27] MEDS: amLODIPine BESYLATE 5 MG TABLET (FP) PO SCH (10:49)
[2022-06-27] MEDS: FERROUS SO4 325 MG TABLET (FP) PO SCH (10:49)
[2022-06-27] MEDS: ENOXAPARIN NA (PORCINE) 40 MG/0.4 ML DISP.SYRIN SQ SCH (10:49)
[2022-06-27] MEDS: FUROSEMIDE 40 MG/4 ML INJECTABLE VIAL IVPUSH SCH (10:50)
[2022-06-27] MEDS: FUROSEMIDE 20 MG TABLET (FP) PO SCH (11:04)
[2022-06-27] MEDS: CEFTRIAXONE 1 GM in DEXTROSE 5%-WATER - 50 ML IVPB SCH (11:57)
[2022-06-27] MEDS: ACETAMINOPHEN 1000 MG/100 ML BAG IVPB PRN (13:54)
[2022-06-27] MEDS ORDERED: ALPRAZolam 0.25 MG TABLET PO ONE (16:18)
[2022-06-27] MEDS: LIDOCAINE PATCH REMOVAL MC SCH (21:43)
[2022-06-27] MEDS: ATORVASTATIN CA 40 MG TABLET (FP) PO SCH (21:49)
[2022-06-28] MEDS: ALBUTEROL SO4 2.5/IPRATROPIUM 0.5 INH SOL 3 ML VIAL.NEB. NEB SCH ×4 (07:36→20:22)
[2022-06-28 09:20] LABS: BASO % 0.8 % (0-2.0); EOS % 2.4 % (0-4.5); HEMATOCRIT 37.2 % (32.4-45.2); HEMOGLOBIN 12.1 GM/dL (10.7-15.3); LYMPH % 33.3 % (8-40); MCH 25.4 pg (25.7-33.7); MCHC 32.6 g/dl (32.0-36.0); MEAN PLT VOLUME 8.7 fl (7.5-11.1); MONO % 10.2 % (3.8-10.2); NEUT % 53.3 % (42.8-82.8); PLATELET COUNT 251 10^3/uL (134-434); RBC 4.77 M/mm3 (3.60-5.2); RDW 13.8 % (11.6-15.6); WHITE BLOOD COUNT 6.8 K/mm3 (4.0-10.0)
[2022-06-28] MEDS: CEFTRIAXONE 1 GM in DEXTROSE 5%-WATER - 50 ML IVPB SCH ×2 (09:35→09:37)
[2022-06-28 09:37] LABS: BLOOD UREA NITROGEN 18.1 mg/dL (7-18); CALCIUM 9.4 mg/dL (8.5-10.1)
[2022-06-28] MEDS: ENOXAPARIN NA (PORCINE) 40 MG/0.4 ML DISP.SYRIN SQ SCH (09:37)
[2022-06-28] MEDS: amLODIPine BESYLATE 5 MG TABLET (FP) PO SCH (09:38)
[2022-06-28] MEDS: FERROUS SO4 325 MG TABLET (FP) PO SCH (09:38)
[2022-06-28] MEDS: FUROSEMIDE 20 MG TABLET (FP) PO SCH (09:38)
[2022-06-28 09:39] LABS: CREATININE 0.7 mg/dL (0.55-1.3)
[2022-06-28 09:40] LABS: BILIRUBIN,TOTAL 0.4 mg/dL (0.2-1); TOT PROT 6.7 g/dl (6.4-8.2)
[2022-06-28] MEDS: ATORVASTATIN CA 40 MG TABLET (FP) PO SCH (21:59)
[2022-06-28] MEDS: LIDOCAINE PATCH REMOVAL MC SCH (21:59)
[2022-06-29] MEDS: ACETAMINOPHEN 500 MG TABLET (FP) PO PRN ×3 (06:39→22:10)
[2022-06-29] MEDS: ALBUTEROL SO4 2.5/IPRATROPIUM 0.5 INH SOL 3 ML VIAL.NEB. NEB SCH ×4 (08:48→20:15)
[2022-06-29 09:01] LABS: BASO % 0.7 % (0-2.0); EOS % 2.4 % (0-4.5); HEMATOCRIT 33.4 % (32.4-45.2); HEMOGLOBIN 11.1 GM/dL (10.7-15.3); LYMPH % 30.3 % (8-40); MCH 25.8 pg (25.7-33.7); MCHC 33.3 g/dl (32.0-36.0); MEAN CELL VOLUME 77.5 fl (80-96); MEAN PLT VOLUME 8.1 fl (7.5-11.1); MONO % 10.7 % (3.8-10.2); NEUT % 55.9 % (42.8-82.8); PLATELET COUNT 235 10^3/uL (134-434); RBC 4.31 M/mm3 (3.60-5.2); RDW 13.7 % (11.6-15.6); WHITE BLOOD COUNT 6.8 K/mm3 (4.0-10.0)
[2022-06-29 09:23] LABS: ALBUMIN 2.7 g/dl (3.4-5.0); BLOOD UREA NITROGEN 16.4 mg/dL (7-18); CALCIUM 8.8 mg/dL (8.5-10.1)
[2022-06-29 09:26] LABS: CREATININE 0.6 mg/dL (0.55-1.3)
[2022-06-29 09:27] LABS: BILIRUBIN,TOTAL 0.6 mg/dL (0.2-1); TOT PROT 6.2 g/dl (6.4-8.2)
[2022-06-29] MEDS: CEFTRIAXONE 1 GM in DEXTROSE 5%-WATER - 50 ML IVPB SCH (09:56)
[2022-06-29] MEDS: ENOXAPARIN NA (PORCINE) 40 MG/0.4 ML DISP.SYRIN SQ SCH (09:56)
[2022-06-29] MEDS: amLODIPine BESYLATE 5 MG TABLET (FP) PO SCH (09:56)
[2022-06-29] MEDS: FUROSEMIDE 20 MG TABLET (FP) PO SCH (09:56)
[2022-06-29] MEDS: FERROUS SO4 325 MG TABLET (FP) PO SCH (09:56)
[2022-06-29] MEDS: ONDANSETRON 4 MG/2 ML VIAL IVPUSH PRN ×2 (13:09→23:39)
[2022-06-29] MEDS: LIDOCAINE 5% TOPICAL PATCH TP SCH (18:40)
[2022-06-29] MEDS: ATORVASTATIN CA 40 MG TABLET (FP) PO SCH (21:48)
[2022-06-29] MEDS: LIDOCAINE PATCH REMOVAL MC SCH (21:48)
[2022-06-30] MEDS: ACETAMINOPHEN 500 MG TABLET (FP) PO PRN ×3 (05:24→22:07)
[2022-06-30] MEDS: ALBUTEROL SO4 2.5/IPRATROPIUM 0.5 INH SOL 3 ML VIAL.NEB. NEB SCH ×4 (07:40→20:00)
[2022-06-30 08:25] LABS: BASO % 1.2 % (0-2.0); EOS % 3.2 % (0-4.5); HEMATOCRIT 33.7 % (32.4-45.2); HEMOGLOBIN 11.5 GM/dL (10.7-15.3); LYMPH % 32.4 % (8-40); MCH 26.4 pg (25.7-33.7); MEAN CELL VOLUME 77.4 fl (80-96); MEAN PLT VOLUME 8.5 fl (7.5-11.1); MONO % 9.2 % (3.8-10.2); PLATELET COUNT 232 10^3/uL (134-434); RBC 4.35 M/mm3 (3.60-5.2); RDW 13.7 % (11.6-15.6)
[2022-06-30 08:50] LABS: ALBUMIN 2.7 g/dl (3.4-5.0)
[2022-06-30 08:53] LABS: BLOOD UREA NITROGEN 19.3 mg/dL (7-18); CREATININE 0.8 mg/dL (0.55-1.3); MAGNESIUM 2.2 mg/dL (1.8-2.4); PHOSPHOROUS 3.3 mg/dL (2.5-4.9)
[2022-06-30 08:54] LABS: TOT PROT 6.2 g/dl (6.4-8.2)
[2022-06-30 08:55] LABS: BILIRUBIN,TOTAL 0.4 mg/dL (0.2-1)
[2022-06-30] MEDS ORDERED: CEFTRIAXONE 1 GM in DEXTROSE 5%-WATER - 50 ML IVPB SCH (10:00)
[2022-06-30] MEDS: ASPIRIN COATED 81 MG TABLET.EC PO SCH (11:01)
[2022-06-30] MEDS: ENOXAPARIN NA (PORCINE) 40 MG/0.4 ML DISP.SYRIN SQ SCH (11:01)
[2022-06-30] MEDS: amLODIPine BESYLATE 5 MG TABLET (FP) PO SCH (11:01)
[2022-06-30] MEDS: FERROUS SO4 325 MG TABLET (FP) PO SCH (11:01)
[2022-06-30] MEDS: LIDOCAINE 5% TOPICAL PATCH TP SCH (11:01)
[2022-06-30] MEDS: FUROSEMIDE 20 MG TABLET (FP) PO SCH (11:02)
[2022-06-30] MEDS: PANTOPRAZOLE 40 MG TABLET PO SCH (11:43)
[2022-06-30] MEDS: ATORVASTATIN CA 40 MG TABLET (FP) PO SCH (22:07)
[2022-06-30] MEDS: LIDOCAINE PATCH REMOVAL MC SCH (22:08)
[2022-07-01 07:41] LABS: BASO % 0.9 % (0-2.0); EOS % 3.1 % (0-4.5); HEMATOCRIT 33.9 % (32.4-45.2); HEMOGLOBIN 11.5 GM/dL (10.7-15.3); MCH 26.2 pg (25.7-33.7); MCHC 33.9 g/dl (32.0-36.0); MEAN CELL VOLUME 77.3 fl (80-96); MEAN PLT VOLUME 7.8 fl (7.5-11.1); MONO % 9.3 % (3.8-10.2); NEUT % 51.7 % (42.8-82.8); PLATELET COUNT 241 10^3/uL (134-434); RBC 4.39 M/mm3 (3.60-5.2); RDW 13.9 % (11.6-15.6); WHITE BLOOD COUNT 5.8 K/mm3 (4.0-10.0)
[2022-07-01 08:20] LABS: CALCIUM 9.3 mg/dL (8.5-10.1)
[2022-07-01 08:21] LABS: ALBUMIN 2.8 g/dl (3.4-5.0); BLOOD UREA NITROGEN 21.8 mg/dL (7-18); MAGNESIUM 2.2 mg/dL (1.8-2.4)
[2022-07-01 08:22] LABS: BILIRUBIN,TOTAL 0.3 mg/dL (0.2-1)
[2022-07-01 08:23] LABS: PHOSPHOROUS 3.4 mg/dL (2.5-4.9); TOT PROT 6.4 g/dl (6.4-8.2)
[2022-07-01 08:24] LABS: CREATININE 0.7 mg/dL (0.55-1.3)
[2022-07-01] MEDS: ALBUTEROL SO4 2.5/IPRATROPIUM 0.5 INH SOL 3 ML VIAL.NEB. NEB SCH ×4 (08:34→20:00)
[2022-07-01] MEDS: ACETAMINOPHEN 500 MG TABLET (FP) PO PRN ×2 (08:40→21:35)
[2022-07-01] MEDS: PANTOPRAZOLE 40 MG TABLET PO SCH (10:22)
[2022-07-01] MEDS: ASPIRIN COATED 81 MG TABLET.EC PO SCH (10:22)
[2022-07-01] MEDS: FERROUS SO4 325 MG TABLET (FP) PO SCH (10:22)
[2022-07-01] MEDS: LIDOCAINE 5% TOPICAL PATCH TP SCH (10:23)
[2022-07-01] MEDS: ENOXAPARIN NA (PORCINE) 40 MG/0.4 ML DISP.SYRIN SQ SCH (10:23)
[2022-07-01] MEDS: amLODIPine BESYLATE 5 MG TABLET (FP) PO SCH (10:26)
[2022-07-01] MEDS: FUROSEMIDE 20 MG TABLET (FP) PO SCH (10:26)
[2022-07-01] MEDS: ATORVASTATIN CA 40 MG TABLET (FP) PO SCH (21:35)
[2022-07-01] MEDS: LIDOCAINE PATCH REMOVAL MC SCH (21:36)
[2022-07-02] MEDS: ACETAMINOPHEN 500 MG TABLET (FP) PO PRN ×2 (05:35→17:35)
[2022-07-02] MEDS: ALBUTEROL SO4 2.5/IPRATROPIUM 0.5 INH SOL 3 ML VIAL.NEB. NEB SCH ×4 (07:25→20:00)
[2022-07-02 08:48] LABS: BASO % 0.8 % (0-2.0); EOS % 2.6 % (0-4.5); HEMATOCRIT 34.7 % (32.4-45.2); HEMOGLOBIN 11.8 GM/dL (10.7-15.3); LYMPH % 35.9 % (8-40); MCH 26.5 pg (25.7-33.7); MEAN PLT VOLUME 8.6 fl (7.5-11.1); MONO % 8.1 % (3.8-10.2); NEUT % 52.6 % (42.8-82.8); PLATELET COUNT 259 10^3/uL (134-434); RBC 4.45 M/mm3 (3.60-5.2); RDW 13.7 % (11.6-15.6); WHITE BLOOD COUNT 5.5 K/mm3 (4.0-10.0)
[2022-07-02 09:16] LABS: BLOOD UREA NITROGEN 20.9 mg/dL (7-18); CALCIUM 9.3 mg/dL (8.5-10.1)
[2022-07-02 09:17] LABS: MAGNESIUM 2.2 mg/dL (1.8-2.4)
[2022-07-02 09:18] LABS: CREATININE 0.7 mg/dL (0.55-1.3)
[2022-07-02 09:19] LABS: PHOSPHOROUS 3.1 mg/dL (2.5-4.9)
[2022-07-02 09:20] LABS: BILIRUBIN,TOTAL 0.4 mg/dL (0.2-1); TOT PROT 6.8 g/dl (6.4-8.2)
[2022-07-02] MEDS: ENOXAPARIN NA (PORCINE) 40 MG/0.4 ML DISP.SYRIN SQ SCH (10:59)
[2022-07-02] MEDS: FERROUS SO4 325 MG TABLET (FP) PO SCH (11:00)
[2022-07-02] MEDS: ASPIRIN COATED 81 MG TABLET.EC PO SCH (11:00)
[2022-07-02] MEDS: LIDOCAINE 5% TOPICAL PATCH TP SCH (11:00)
[2022-07-02] MEDS: FUROSEMIDE 20 MG TABLET (FP) PO SCH (11:01)
[2022-07-02] MEDS: PANTOPRAZOLE 40 MG TABLET PO SCH (11:01)
[2022-07-02] MEDS: amLODIPine BESYLATE 5 MG TABLET (FP) PO SCH (11:01)
[2022-07-02] MEDS: ATORVASTATIN CA 40 MG TABLET (FP) PO SCH (22:21)
[2022-07-02] MEDS: LIDOCAINE PATCH REMOVAL MC SCH (22:26)
[2022-07-03 07:47] LABS: BASO % 0.7 % (0-2.0); EOS % 2.4 % (0-4.5); HEMATOCRIT 32.5 % (32.4-45.2); LYMPH % 34.1 % (8-40); MCH 25.9 pg (25.7-33.7); MCHC 33.8 g/dl (32.0-36.0); MEAN CELL VOLUME 76.7 fl (80-96); MEAN PLT VOLUME 8.6 fl (7.5-11.1); MONO % 8.4 % (3.8-10.2); NEUT % 54.4 % (42.8-82.8); PLATELET COUNT 256 10^3/uL (134-434); RBC 4.24 M/mm3 (3.60-5.2); RDW 13.7 % (11.6-15.6); WHITE BLOOD COUNT 5.8 K/mm3 (4.0-10.0)
[2022-07-03] MEDS: ALBUTEROL SO4 2.5/IPRATROPIUM 0.5 INH SOL 3 ML VIAL.NEB. NEB SCH ×4 (07:58→20:00)
[2022-07-03] MEDS: PANTOPRAZOLE 40 MG TABLET PO SCH ×2 (08:02→09:43)
[2022-07-03 08:13] LABS: ALBUMIN 2.9 g/dl (3.4-5.0); CALCIUM 9.2 mg/dL (8.5-10.1); MAGNESIUM 2.2 mg/dL (1.8-2.4)
[2022-07-03 08:14] LABS: BLOOD UREA NITROGEN 19.3 mg/dL (7-18); PHOSPHOROUS 3.1 mg/dL (2.5-4.9)
[2022-07-03 08:16] LABS: BILIRUBIN,TOTAL 0.4 mg/dL (0.2-1); CREATININE 0.6 mg/dL (0.55-1.3); TOT PROT 6.5 g/dl (6.4-8.2)
[2022-07-03] MEDS: amLODIPine BESYLATE 5 MG TABLET (FP) PO SCH (09:42)
[2022-07-03] MEDS: FUROSEMIDE 20 MG TABLET (FP) PO SCH (09:42)
[2022-07-03] MEDS: ASPIRIN COATED 81 MG TABLET.EC PO SCH (09:43)
[2022-07-03] MEDS: LIDOCAINE 5% TOPICAL PATCH TP SCH (09:43)
[2022-07-03 14:58] LABS: BF GLUCOSE (CSF ONLY) 68 mg/dL (40-70)
[2022-07-03 15:04] LABS: CSF WBC 0 mm3 (0-5)
[2022-07-03 15:34] LABS: CSF APPEARANCE CLEAR (CLEAR); CSF COLOR COLORLESS (COLORLESS)
[2022-07-03] MEDS: ACETAMINOPHEN 500 MG TABLET (FP) PO PRN (16:25)
[2022-07-03] MEDS: ATORVASTATIN CA 40 MG TABLET (FP) PO SCH (21:26)
[2022-07-03] MEDS: LIDOCAINE PATCH REMOVAL MC SCH (21:26)
[2022-07-04] MEDS: ALBUTEROL SO4 2.5/IPRATROPIUM 0.5 INH SOL 3 ML VIAL.NEB. NEB SCH ×3 (07:30→15:31)
[2022-07-04 08:34] LABS: ALBUMIN 2.9 g/dl (3.4-5.0); CALCIUM 9.1 mg/dL (8.5-10.1)
[2022-07-04 08:35] LABS: BLOOD UREA NITROGEN 22.5 mg/dL (7-18); MAGNESIUM 2.2 mg/dL (1.8-2.4)
[2022-07-04 08:38] LABS: CREATININE 0.6 mg/dL (0.55-1.3); PHOSPHOROUS 3.1 mg/dL (2.5-4.9)
[2022-07-04 08:39] LABS: BILIRUBIN,TOTAL 0.4 mg/dL (0.2-1); TOT PROT 6.5 g/dl (6.4-8.2)
[2022-07-04 08:41] LABS: BASO % 0.6 % (0-2.0); EOS % 2.1 % (0-4.5); HEMATOCRIT 33.5 % (32.4-45.2); LYMPH % 32.9 % (8-40); MCH 25.7 pg (25.7-33.7); MCHC 32.9 g/dl (32.0-36.0); MEAN PLT VOLUME 8.3 fl (7.5-11.1); MONO % 8.4 % (3.8-10.2); PLATELET COUNT 250 10^3/uL (134-434); RDW 14.1 % (11.6-15.6); WHITE BLOOD COUNT 6.3 K/mm3 (4.0-10.0)
[2022-07-04] MEDS: LIDOCAINE 5% TOPICAL PATCH TP SCH (09:22)
[2022-07-04] MEDS: PANTOPRAZOLE 40 MG TABLET PO SCH (09:22)
[2022-07-04] MEDS: FUROSEMIDE 20 MG TABLET (FP) PO SCH (09:22)
[2022-07-04] MEDS: amLODIPine BESYLATE 5 MG TABLET (FP) PO SCH (09:22)
[2022-07-04] MEDS: ASPIRIN COATED 81 MG TABLET.EC PO SCH (09:24)
[2022-07-04] MEDS: ATORVASTATIN CA 40 MG TABLET (FP) PO SCH (22:38)
[2022-07-04] MEDS: LIDOCAINE PATCH REMOVAL MC SCH (22:40)
[2022-07-05] MEDS: amLODIPine BESYLATE 5 MG TABLET (FP) PO SCH (09:56)
[2022-07-05] MEDS: PANTOPRAZOLE 40 MG TABLET PO SCH (09:56)
[2022-07-05] MEDS: LIDOCAINE 5% TOPICAL PATCH TP SCH (09:56)
[2022-07-05] MEDS: FUROSEMIDE 20 MG TABLET (FP) PO SCH (09:57)
[2022-07-05] MEDS: ASPIRIN COATED 81 MG TABLET.EC PO SCH (09:57)
[2022-07-05] MEDS: DOCUSATE SODIUM 100 MG CAPSULE (FP) PO SCH ×2 (15:10→23:15)
[2022-07-05] MEDS: LIDOCAINE PATCH REMOVAL MC SCH (23:15)
[2022-07-05] MEDS: ATORVASTATIN CA 40 MG TABLET (FP) PO SCH (23:15)
[2022-07-05] MEDS: SENNOSIDES 8.6MG TABLET (FP) PO SCH (23:15)
[2022-07-05] MEDS: POLYETHYLENE GLYCOL (HEALTHYLAX) 3350 17 GM PACKET PO SCH (23:15)
[2022-07-06] MEDS: DOCUSATE SODIUM 100 MG CAPSULE (FP) PO SCH ×3 (05:17→23:02)
[2022-07-06] MEDS: ACETAMINOPHEN 500 MG TABLET (FP) PO PRN ×2 (07:21→14:20)
[2022-07-06 07:35] LABS: ALBUMIN 2.8 g/dl (3.4-5.0); BASO % 0.6 % (0-2.0); BLOOD UREA NITROGEN 18.2 mg/dL (7-18); CALCIUM 9.2 mg/dL (8.5-10.1); CREATININE 0.6 mg/dL (0.55-1.3); EOS % 1.5 % (0-4.5); HEMATOCRIT 31.8 % (32.4-45.2); HEMOGLOBIN 10.9 GM/dL (10.7-15.3); LYMPH % 27.3 % (8-40); MCH 26.5 pg (25.7-33.7); MCHC 34.3 g/dl (32.0-36.0); MEAN CELL VOLUME 77.3 fl (80-96); MEAN PLT VOLUME 8.4 fl (7.5-11.1); MONO % 7.3 % (3.8-10.2); NEUT % 63.3 % (42.8-82.8); PLATELET COUNT 255 10^3/uL (134-434); RBC 4.11 M/mm3 (3.60-5.2); WHITE BLOOD COUNT 7.2 K/mm3 (4.0-10.0)
[2022-07-06 07:36] LABS: BILIRUBIN,TOTAL 0.4 mg/dL (0.2-1); TOT PROT 6.6 g/dl (6.4-8.2)
[2022-07-06] MEDS: SENNOSIDES 8.6MG TABLET (FP) PO SCH ×2 (10:37→23:02)
[2022-07-06] MEDS: PANTOPRAZOLE 40 MG TABLET PO SCH (10:37)
[2022-07-06] MEDS: ASPIRIN COATED 81 MG TABLET.EC PO SCH (10:37)
[2022-07-06] MEDS: LIDOCAINE 5% TOPICAL PATCH TP SCH (10:37)
[2022-07-06] MEDS: FUROSEMIDE 20 MG TABLET (FP) PO SCH (10:37)
[2022-07-06] MEDS: amLODIPine BESYLATE 5 MG TABLET (FP) PO SCH (10:37)
[2022-07-06] MEDS: POLYETHYLENE GLYCOL (HEALTHYLAX) 3350 17 GM PACKET PO SCH ×2 (10:39→23:03)
[2022-07-06] MEDS: ENOXAPARIN NA (PORCINE) 40 MG/0.4 ML DISP.SYRIN SQ SCH (10:39)
[2022-07-06] MEDS: ATORVASTATIN CA 40 MG TABLET (FP) PO SCH (23:03)
[2022-07-06] MEDS: LIDOCAINE PATCH REMOVAL MC SCH (23:04)
[2022-07-07] MEDS: ACETAMINOPHEN 500 MG TABLET (FP) PO PRN (04:18)
[2022-07-07] MEDS: DOCUSATE SODIUM 100 MG CAPSULE (FP) PO SCH ×3 (06:41→22:03)
[2022-07-07 08:31] LABS: BASO % 0.9 % (0-2.0); EOS % 3.3 % (0-4.5); HEMATOCRIT 34.3 % (32.4-45.2); HEMOGLOBIN 11.3 GM/dL (10.7-15.3); LYMPH % 38.8 % (8-40); MCH 25.6 pg (25.7-33.7); MEAN CELL VOLUME 77.4 fl (80-96); MEAN PLT VOLUME 8.1 fl (7.5-11.1); MONO % 9.6 % (3.8-10.2); NEUT % 47.4 % (42.8-82.8); PLATELET COUNT 292 10^3/uL (134-434); RBC 4.43 M/mm3 (3.60-5.2); RDW 14.3 % (11.6-15.6); WHITE BLOOD COUNT 4.8 K/mm3 (4.0-10.0)
[2022-07-07 09:12] LABS: ALBUMIN 2.9 g/dl (3.4-5.0)
[2022-07-07 09:13] LABS: BLOOD UREA NITROGEN 22.6 mg/dL (7-18); CALCIUM 9.3 mg/dL (8.5-10.1)
[2022-07-07 09:14] LABS: TOT PROT 6.6 g/dl (6.4-8.2)
[2022-07-07 09:15] LABS: CREATININE 0.6 mg/dL (0.55-1.3)
[2022-07-07 09:17] LABS: BILIRUBIN,TOTAL 0.4 mg/dL (0.2-1)
[2022-07-07] MEDS: LIDOCAINE 5% TOPICAL PATCH TP SCH (09:48)
[2022-07-07] MEDS: PANTOPRAZOLE 40 MG TABLET PO SCH (09:49)
[2022-07-07] MEDS: FUROSEMIDE 20 MG TABLET (FP) PO SCH (09:49)
[2022-07-07] MEDS: ASPIRIN COATED 81 MG TABLET.EC PO SCH (09:49)
[2022-07-07] MEDS: ENOXAPARIN NA (PORCINE) 40 MG/0.4 ML DISP.SYRIN SQ SCH (09:49)
[2022-07-07] MEDS: SENNOSIDES 8.6MG TABLET (FP) PO SCH ×2 (09:49→22:03)
[2022-07-07] MEDS: POLYETHYLENE GLYCOL (HEALTHYLAX) 3350 17 GM PACKET PO SCH ×2 (09:49→22:04)
[2022-07-07] MEDS: amLODIPine BESYLATE 5 MG TABLET (FP) PO SCH (09:49)
[2022-07-07] MEDS: ALBUTEROL SO4 HFA INHALER IH PRN (11:33)
[2022-07-07] MEDS: ATORVASTATIN CA 40 MG TABLET (FP) PO SCH (22:03)
[2022-07-07] MEDS: LIDOCAINE PATCH REMOVAL MC SCH (22:03)
[2022-07-08] MEDS: DOCUSATE SODIUM 100 MG CAPSULE (FP) PO SCH ×3 (06:11→22:50)
[2022-07-08] MEDS: amLODIPine BESYLATE 5 MG TABLET (FP) PO SCH (10:29)
[2022-07-08] MEDS: ASPIRIN COATED 81 MG TABLET.EC PO SCH (10:29)
[2022-07-08] MEDS: ENOXAPARIN NA (PORCINE) 40 MG/0.4 ML DISP.SYRIN SQ SCH (10:29)
[2022-07-08] MEDS: FUROSEMIDE 20 MG TABLET (FP) PO SCH (10:29)
[2022-07-08] MEDS: PANTOPRAZOLE 40 MG TABLET PO SCH (10:29)
[2022-07-08] MEDS: FERROUS SO4 325 MG TABLET (FP) PO SCH (10:29)
[2022-07-08] MEDS: SENNOSIDES 8.6MG TABLET (FP) PO SCH ×2 (10:29→22:50)
[2022-07-08] MEDS: POLYETHYLENE GLYCOL (HEALTHYLAX) 3350 17 GM PACKET PO SCH ×2 (10:30→22:50)
[2022-07-08] MEDS: LIDOCAINE 5% TOPICAL PATCH TP SCH (10:30)
[2022-07-08] MEDS: ACETAMINOPHEN 500 MG TABLET (FP) PO SCH ×4 (12:09→23:07)
[2022-07-08 12:13] LABS: BASO % 1.1 % (0-2.0); EOS % 2.9 % (0-4.5); HEMATOCRIT 34.4 % (32.4-45.2); HEMOGLOBIN 11.3 GM/dL (10.7-15.3); LYMPH % 33.1 % (8-40); MCH 25.6 pg (25.7-33.7); MCHC 32.8 g/dl (32.0-36.0); MEAN CELL VOLUME 78.1 fl (80-96); MEAN PLT VOLUME 7.9 fl (7.5-11.1); MONO % 10.8 % (3.8-10.2); NEUT % 52.1 % (42.8-82.8); PLATELET COUNT 316 10^3/uL (134-434); RBC 4.41 M/mm3 (3.60-5.2); WHITE BLOOD COUNT 5.8 K/mm3 (4.0-10.0)
[2022-07-08 12:33] LABS: ALBUMIN 2.9 g/dl (3.4-5.0); CALCIUM 9.5 mg/dL (8.5-10.1)
[2022-07-08 12:34] LABS: BLOOD UREA NITROGEN 24.5 mg/dL (7-18); MAGNESIUM 2.2 mg/dL (1.8-2.4)
[2022-07-08 12:36] LABS: PHOSPHOROUS 2.6 mg/dL (2.5-4.9)
[2022-07-08 12:37] LABS: CREATININE 0.6 mg/dL (0.55-1.3)
[2022-07-08 12:38] LABS: BILIRUBIN,TOTAL 0.2 mg/dL (0.2-1); TOT PROT 6.6 g/dl (6.4-8.2)
[2022-07-08] MEDS ORDERED: ALBUTEROL SO4 2.5/IPRATROPIUM 0.5 INH SOL 3 ML VIAL.NEB. NEB PRN (17:14)
[2022-07-08] MEDS ORDERED: ALBUTEROL SO4 2.5/IPRATROPIUM 0.5 INH SOL 3 ML VIAL.NEB. NEB ONE (17:19)
[2022-07-08] MEDS: ATORVASTATIN CA 40 MG TABLET (FP) PO SCH (22:50)
[2022-07-08] MEDS: LIDOCAINE PATCH REMOVAL MC SCH (22:51)
[2022-07-09] MEDS: ACETAMINOPHEN 500 MG TABLET (FP) PO SCH ×4 (05:49→23:57)
[2022-07-09] MEDS: DOCUSATE SODIUM 100 MG CAPSULE (FP) PO SCH ×3 (05:50→23:56)
[2022-07-09 08:51] LABS: BASO % 0.9 % (0-2.0); EOS % 2.9 % (0-4.5); HEMATOCRIT 34.4 % (32.4-45.2); HEMOGLOBIN 11.6 GM/dL (10.7-15.3); LYMPH % 44.4 % (8-40); MCH 25.9 pg (25.7-33.7); MCHC 33.7 g/dl (32.0-36.0); MEAN PLT VOLUME 8.2 fl (7.5-11.1); MONO % 8.5 % (3.8-10.2); NEUT % 43.3 % (42.8-82.8); PLATELET COUNT 336 10^3/uL (134-434); RBC 4.46 M/mm3 (3.60-5.2); WHITE BLOOD COUNT 4.7 K/mm3 (4.0-10.0)
[2022-07-09 09:11] LABS: CALCIUM 9.5 mg/dL (8.5-10.1)
[2022-07-09 09:12] LABS: BLOOD UREA NITROGEN 24.2 mg/dL (7-18); MAGNESIUM 2.1 mg/dL (1.8-2.4)
[2022-07-09 09:15] LABS: CREATININE 0.6 mg/dL (0.55-1.3); PHOSPHOROUS 3.5 mg/dL (2.5-4.9)
[2022-07-09 09:17] LABS: BILIRUBIN,TOTAL 0.2 mg/dL (0.2-1); TOT PROT 6.9 g/dl (6.4-8.2)
[2022-07-09] MEDS: PANTOPRAZOLE 40 MG TABLET PO SCH (10:50)
[2022-07-09] MEDS: FERROUS SO4 325 MG TABLET (FP) PO SCH (10:50)
[2022-07-09] MEDS: ASPIRIN COATED 81 MG TABLET.EC PO SCH (10:50)
[2022-07-09] MEDS: FUROSEMIDE 20 MG TABLET (FP) PO SCH (10:50)
[2022-07-09] MEDS: amLODIPine BESYLATE 5 MG TABLET (FP) PO SCH (10:50)
[2022-07-09] MEDS: POLYETHYLENE GLYCOL (HEALTHYLAX) 3350 17 GM PACKET PO SCH ×2 (10:50→23:56)
[2022-07-09] MEDS: ENOXAPARIN NA (PORCINE) 40 MG/0.4 ML DISP.SYRIN SQ SCH (10:50)
[2022-07-09] MEDS: LIDOCAINE 5% TOPICAL PATCH TP SCH (10:50)
[2022-07-09] MEDS: SENNOSIDES 8.6MG TABLET (FP) PO SCH ×2 (10:50→23:56)
[2022-07-09] MEDS ORDERED: ALBUTEROL SO4 2.5/IPRATROPIUM 0.5 INH SOL 3 ML VIAL.NEB. NEB PRN ×2 (11:34→15:00)
[2022-07-09] MEDS: ALBUTEROL SO4 HFA INHALER IH PRN (13:33)
[2022-07-09] MEDS: ATORVASTATIN CA 40 MG TABLET (FP) PO SCH (23:56)
[2022-07-09] MEDS: GABAPENTIN 100 MG CAPSULE PO SCH (23:56)
[2022-07-09] MEDS: LIDOCAINE PATCH REMOVAL MC SCH (23:58)
[2022-07-10] MEDS: ACETAMINOPHEN 500 MG TABLET (FP) PO SCH ×3 (06:20→17:53)
[2022-07-10] MEDS: ALBUTEROL SO4 HFA INHALER IH PRN (06:21)
[2022-07-10] MEDS: DOCUSATE SODIUM 100 MG CAPSULE (FP) PO SCH ×2 (06:21→13:49)
[2022-07-10 08:58] LABS: BASO % 0.7 % (0-2.0); EOS % 3.6 % (0-4.5); HEMATOCRIT 33.1 % (32.4-45.2); LYMPH % 48.6 % (8-40); MCH 25.7 pg (25.7-33.7); MCHC 33.3 g/dl (32.0-36.0); MEAN CELL VOLUME 77.2 fl (80-96); MEAN PLT VOLUME 7.9 fl (7.5-11.1); MONO % 10.1 % (3.8-10.2); PLATELET COUNT 319 10^3/uL (134-434); RBC 4.29 M/mm3 (3.60-5.2); RDW 13.9 % (11.6-15.6); WHITE BLOOD COUNT 4.5 K/mm3 (4.0-10.0)
[2022-07-10 09:27] LABS: ALBUMIN 2.8 g/dl (3.4-5.0); BLOOD UREA NITROGEN 20.7 mg/dL (7-18); MAGNESIUM 2.2 mg/dL (1.8-2.4)
[2022-07-10 09:30] LABS: CREATININE 0.7 mg/dL (0.55-1.3); PHOSPHOROUS 3.4 mg/dL (2.5-4.9)
[2022-07-10 09:32] LABS: BILIRUBIN,TOTAL 0.3 mg/dL (0.2-1); TOT PROT 6.4 g/dl (6.4-8.2)
[2022-07-10] MEDS: PANTOPRAZOLE 40 MG TABLET PO SCH (11:16)
[2022-07-10] MEDS: DULoxetine HCL 30 MG CAPSULE.DR PO SCH (11:16)
[2022-07-10] MEDS: SENNOSIDES 8.6MG TABLET (FP) PO SCH (11:16)
[2022-07-10] MEDS: FUROSEMIDE 20 MG TABLET (FP) PO SCH (11:16)
[2022-07-10] MEDS: ASPIRIN COATED 81 MG TABLET.EC PO SCH (11:16)
[2022-07-10] MEDS: amLODIPine BESYLATE 5 MG TABLET (FP) PO SCH (11:17)
[2022-07-10] MEDS: FERROUS SO4 325 MG TABLET (FP) PO SCH (11:17)
[2022-07-10] MEDS: POLYETHYLENE GLYCOL (HEALTHYLAX) 3350 17 GM PACKET PO SCH (11:17)
[2022-07-10] MEDS: ENOXAPARIN NA (PORCINE) 40 MG/0.4 ML DISP.SYRIN SQ SCH (11:17)
[2022-07-10] MEDS: LIDOCAINE 5% TOPICAL PATCH TP SCH (11:17)
[2022-07-11] MEDS: DOCUSATE SODIUM 100 MG CAPSULE (FP) PO SCH ×4 (00:03→21:30)
[2022-07-11] MEDS: POLYETHYLENE GLYCOL (HEALTHYLAX) 3350 17 GM PACKET PO SCH ×3 (00:03→21:31)
[2022-07-11] MEDS: SENNOSIDES 8.6MG TABLET (FP) PO SCH ×3 (00:03→21:30)
[2022-07-11] MEDS: ATORVASTATIN CA 40 MG TABLET (FP) PO SCH ×2 (00:03→21:30)
[2022-07-11] MEDS: ACETAMINOPHEN 500 MG TABLET (FP) PO SCH ×5 (00:04→23:03)
[2022-07-11] MEDS: LIDOCAINE PATCH REMOVAL MC SCH ×2 (00:04→21:30)
[2022-07-11] MEDS: GABAPENTIN 100 MG CAPSULE PO SCH ×2 (00:04→21:30)
[2022-07-11 09:05] LABS: BASO % 0.9 % (0-2.0); EOS % 2.6 % (0-4.5); HEMATOCRIT 34.8 % (32.4-45.2); HEMOGLOBIN 11.5 GM/dL (10.7-15.3); LYMPH % 41.2 % (8-40); MCH 25.7 pg (25.7-33.7); MEAN CELL VOLUME 77.9 fl (80-96); MEAN PLT VOLUME 8.1 fl (7.5-11.1); NEUT % 46.3 % (42.8-82.8); PLATELET COUNT 333 10^3/uL (134-434); RBC 4.47 M/mm3 (3.60-5.2); RDW 14.1 % (11.6-15.6); WHITE BLOOD COUNT 4.9 K/mm3 (4.0-10.0)
[2022-07-11] MEDS: FERROUS SO4 325 MG TABLET (FP) PO SCH (09:13)
[2022-07-11] MEDS: ASPIRIN COATED 81 MG TABLET.EC PO SCH (09:13)
[2022-07-11] MEDS: DULoxetine HCL 30 MG CAPSULE.DR PO SCH (09:13)
[2022-07-11] MEDS: ENOXAPARIN NA (PORCINE) 40 MG/0.4 ML DISP.SYRIN SQ SCH (09:14)
[2022-07-11] MEDS: amLODIPine BESYLATE 5 MG TABLET (FP) PO SCH (09:14)
[2022-07-11] MEDS: FUROSEMIDE 20 MG TABLET (FP) PO SCH (09:14)
[2022-07-11] MEDS: PANTOPRAZOLE 40 MG TABLET PO SCH (09:14)
[2022-07-11] MEDS: LIDOCAINE 5% TOPICAL PATCH TP SCH (09:15)
[2022-07-11 09:53] LABS: BLOOD UREA NITROGEN 22.8 mg/dL (7-18); CALCIUM 9.3 mg/dL (8.5-10.1); MAGNESIUM 2.2 mg/dL (1.8-2.4)
[2022-07-11 09:56] LABS: CREATININE 0.6 mg/dL (0.55-1.3); PHOSPHOROUS 3.1 mg/dL (2.5-4.9)
[2022-07-11 09:58] LABS: BILIRUBIN,TOTAL 0.4 mg/dL (0.2-1); TOT PROT 6.8 g/dl (6.4-8.2)
[2022-07-11] MEDS: ALBUTEROL SO4 HFA INHALER IH PRN (11:06)
[2022-07-12] MEDS: DOCUSATE SODIUM 100 MG CAPSULE (FP) PO SCH ×3 (05:29→23:20)
[2022-07-12] MEDS: ACETAMINOPHEN 500 MG TABLET (FP) PO SCH ×4 (05:29→23:20)
[2022-07-12] MEDS: LIDOCAINE 5% TOPICAL PATCH TP SCH (09:15)
[2022-07-12] MEDS: POLYETHYLENE GLYCOL (HEALTHYLAX) 3350 17 GM PACKET PO SCH ×2 (09:15→23:20)
[2022-07-12] MEDS: ASPIRIN COATED 81 MG TABLET.EC PO SCH (09:16)
[2022-07-12] MEDS: ENOXAPARIN NA (PORCINE) 40 MG/0.4 ML DISP.SYRIN SQ SCH (09:16)
[2022-07-12] MEDS: SENNOSIDES 8.6MG TABLET (FP) PO SCH ×2 (09:16→23:21)
[2022-07-12] MEDS: amLODIPine BESYLATE 5 MG TABLET (FP) PO SCH (09:16)
[2022-07-12] MEDS: FUROSEMIDE 20 MG TABLET (FP) PO SCH (09:16)
[2022-07-12] MEDS: DULoxetine HCL 30 MG CAPSULE.DR PO SCH (09:16)
[2022-07-12] MEDS: FERROUS SO4 325 MG TABLET (FP) PO SCH (09:16)
[2022-07-12] MEDS: PANTOPRAZOLE 40 MG TABLET PO SCH (09:16)
[2022-07-12] MEDS: ALBUTEROL SO4 HFA INHALER IH PRN (10:19)
[2022-07-12] MEDS: ALBUTEROL SO4 2.5/IPRATROPIUM 0.5 INH SOL 3 ML VIAL.NEB. NEB PRN (13:05)
[2022-07-12] MEDS: ATORVASTATIN CA 40 MG TABLET (FP) PO SCH (23:20)
[2022-07-12] MEDS: LIDOCAINE PATCH REMOVAL MC SCH (23:21)
[2022-07-12] MEDS: GABAPENTIN 100 MG CAPSULE PO SCH (23:21)
[2022-07-13] MEDS: ACETAMINOPHEN 500 MG TABLET (FP) PO SCH ×4 (05:53→23:00)
[2022-07-13] MEDS: DOCUSATE SODIUM 100 MG CAPSULE (FP) PO SCH ×3 (05:53→23:00)
[2022-07-13] MEDS: ALBUTEROL SO4 2.5/IPRATROPIUM 0.5 INH SOL 3 ML VIAL.NEB. NEB PRN ×2 (08:02→15:11)
[2022-07-13 08:11] LABS: BASO % 1.1 % (0-2.0); EOS % 1.9 % (0-4.5); HEMATOCRIT 33.1 % (32.4-45.2); HEMOGLOBIN 11.2 GM/dL (10.7-15.3); LYMPH % 45.3 % (8-40); MCH 26.1 pg (25.7-33.7); MCHC 33.8 g/dl (32.0-36.0); MEAN CELL VOLUME 77.3 fl (80-96); MEAN PLT VOLUME 7.8 fl (7.5-11.1); MONO % 10.1 % (3.8-10.2); NEUT % 41.6 % (42.8-82.8); PLATELET COUNT 327 10^3/uL (134-434); RBC 4.29 M/mm3 (3.60-5.2); RDW 14.4 % (11.6-15.6); WHITE BLOOD COUNT 4.8 K/mm3 (4.0-10.0)
[2022-07-13 08:32] LABS: CALCIUM 8.9 mg/dL (8.5-10.1)
[2022-07-13 08:33] LABS: BLOOD UREA NITROGEN 22.2 mg/dL (7-18)
[2022-07-13 08:36] LABS: CREATININE 0.7 mg/dL (0.55-1.3)
[2022-07-13] MEDS: FUROSEMIDE 20 MG TABLET (FP) PO SCH (10:37)
[2022-07-13] MEDS: LIDOCAINE 5% TOPICAL PATCH TP SCH (10:37)
[2022-07-13] MEDS: DULoxetine HCL 30 MG CAPSULE.DR PO SCH (10:37)
[2022-07-13] MEDS: FERROUS SO4 325 MG TABLET (FP) PO SCH (10:37)
[2022-07-13] MEDS: POLYETHYLENE GLYCOL (HEALTHYLAX) 3350 17 GM PACKET PO SCH ×2 (10:37→23:00)
[2022-07-13] MEDS: ENOXAPARIN NA (PORCINE) 40 MG/0.4 ML DISP.SYRIN SQ SCH (10:37)
[2022-07-13] MEDS: PANTOPRAZOLE 40 MG TABLET PO SCH (10:38)
[2022-07-13] MEDS: SENNOSIDES 8.6MG TABLET (FP) PO SCH ×2 (10:38→23:00)
[2022-07-13] MEDS: amLODIPine BESYLATE 5 MG TABLET (FP) PO SCH (10:38)
[2022-07-13] MEDS: ASPIRIN COATED 81 MG TABLET.EC PO SCH (10:38)
[2022-07-13] MEDS ORDERED: LORazepam 1 MG TABLET PO ONE (16:50)
[2022-07-13] MEDS: ATORVASTATIN CA 40 MG TABLET (FP) PO SCH (23:00)
[2022-07-13] MEDS: GABAPENTIN 100 MG CAPSULE PO SCH (23:00)
[2022-07-13] MEDS: LIDOCAINE PATCH REMOVAL MC SCH (23:01)
[2022-07-14] MEDS: ACETAMINOPHEN 500 MG TABLET (FP) PO SCH ×2 (06:23→13:42)
[2022-07-14] MEDS: DOCUSATE SODIUM 100 MG CAPSULE (FP) PO SCH ×2 (06:23→13:44)
[2022-07-14 08:59] LABS: EOS % 1.8 % (0-4.5); HEMATOCRIT 35.2 % (32.4-45.2); HEMOGLOBIN 11.9 GM/dL (10.7-15.3); LYMPH % 40.6 % (8-40); MCH 26.3 pg (25.7-33.7); MCHC 33.9 g/dl (32.0-36.0); MEAN CELL VOLUME 77.6 fl (80-96); MEAN PLT VOLUME 8.3 fl (7.5-11.1); NEUT % 47.6 % (42.8-82.8); PLATELET COUNT 346 10^3/uL (134-434); RBC 4.54 M/mm3 (3.60-5.2); RDW 14.5 % (11.6-15.6); WHITE BLOOD COUNT 5.1 K/mm3 (4.0-10.0)
[2022-07-14 09:23] LABS: CALCIUM 9.2 mg/dL (8.5-10.1)
[2022-07-14 09:24] LABS: ALBUMIN 3.2 g/dl (3.4-5.0); BLOOD UREA NITROGEN 22.5 mg/dL (7-18); MAGNESIUM 2.1 mg/dL (1.8-2.4)
[2022-07-14 09:27] LABS: CREATININE 0.7 mg/dL (0.55-1.3); PHOSPHOROUS 3.1 mg/dL (2.5-4.9)
[2022-07-14 09:28] LABS: BILIRUBIN,TOTAL 0.4 mg/dL (0.2-1)
[2022-07-14] MEDS: FUROSEMIDE 20 MG TABLET (FP) PO SCH (10:50)
[2022-07-14] MEDS: LIDOCAINE 5% TOPICAL PATCH TP SCH (10:50)
[2022-07-14] MEDS: ENOXAPARIN NA (PORCINE) 40 MG/0.4 ML DISP.SYRIN SQ SCH (10:50)
[2022-07-14] MEDS: DULoxetine HCL 30 MG CAPSULE.DR PO SCH (10:50)
[2022-07-14] MEDS: SENNOSIDES 8.6MG TABLET (FP) PO SCH (10:51)
[2022-07-14] MEDS: ASPIRIN COATED 81 MG TABLET.EC PO SCH (10:51)
[2022-07-14] MEDS: FERROUS SO4 325 MG TABLET (FP) PO SCH (10:51)
[2022-07-14] MEDS: PANTOPRAZOLE 40 MG TABLET PO SCH (10:51)
[2022-07-14] MEDS: POLYETHYLENE GLYCOL (HEALTHYLAX) 3350 17 GM PACKET PO SCH (10:51)
[2022-07-14] MEDS: amLODIPine BESYLATE 5 MG TABLET (FP) PO SCH (10:51)
[2022-07-14 12:04] VITALS: RESP 20
[2022-07-14] MEDS: ALBUTEROL SO4 2.5/IPRATROPIUM 0.5 INH SOL 3 ML VIAL.NEB. NEB PRN (12:10)
[2022-07-14 14:07] VITALS: BP 124/46; PULSE 96; TEMP 99
== END 2022-07-14 15:32 | DRG 58 ==
LOC: JER 21:35 → JERBED 06-25 01:26 → J4W 06-25 14:58 → J7W 06-27 23:35
PROVIDERS: ADMIT Internal Medicine
PROC: 009U3ZZ Drainage of Spinal Canal, Percutaneous Approach (ICD-10-PCS; principal; 2022-07-03)
PROC: B01BZZZ Fluoroscopy of Spinal Cord (ICD-10-PCS; 2022-07-03)
DX: G91.2 (Idiopathic) normal pressure hydrocephalus (principal); I11.0 Hypertensive heart disease with heart failure; I50.33 Acute on chronic diastolic (congestive) heart failure; J18.9 Pneumonia, unspecified organism; I10 Essential (primary) hypertension; R42 Dizziness and giddiness; E78.5 Hyperlipidemia, unspecified; K21.9 Gastro-esophageal reflux disease without esophagitis; D64.9 Anemia, unspecified; N32.81 Overactive bladder; M54.12 Radiculopathy, cervical region; R41.82 Altered mental status, unspecified; J45.909 Unspecified asthma, uncomplicated; G93.89 Other specified disorders of brain; N39.498 Other specified urinary incontinence; G43.809 Other migraine, not intractable, without status migrainosus; K44.9 Diaphragmatic hernia without obstruction or gangrene; G57.83 Other specified mononeuropathies of bilateral lower limbs; G89.29 Other chronic pain
CPT/HCPCS: 0241U-QW; 36415; 62272; 70450-TC; 70551-TC; 71045-TC-FY; 71275-TC; 72050-TC-FY; 72142-TC; 72149-TC; 76705-TC; 80048; 80053; 81003; 82607; 82803; 82945; 83036; 83735; 83880; 84100; 84157; 84439; 84443; 84484; 85025; 85027; 85610; 85651; 85730; 86140; 86480; 86592; 86682; 86780; 87070; 87086; 87205; 87476; 87529; 93005; 93010; 93306-TC; 94010; 94640; 94761; 97116-GP; 97162-GP; 99285-25; A9579; C9803-CS; Q9967; U0003; U0005